=== PATIENT | female | born 1995 | race Caucasian/White ===

== ENCOUNTER 2016-07-12 12:42 | Emergency (ER) ==
[2016-07-12 12:50] VITALS: BP 121/68; TEMP 98; BMI 20.7
[2016-07-12] MEDS ORDERED: ATIVAN IM STA (15:50)
[2016-07-12] MEDS ORDERED: PHENERGAN 25 MG/ML VIAL IM STA (15:50)
--- NOTE | 2016-07-12 15:50 | ED.PDOC ---
General ED Provider: Dr. JOSH BARKER JR Chief Complaint: Psychiatric Complaint Stated Complaint: ef-WOKE UP HAVING ANXIETY ATTACK. VOMITING 98.0 77 22 121/68 7/10. Alprazolam 0.5 mg 06/04/16 17:04. Ativan IM 06/04/16 2 mg. Phenergan IM 06/04/16 50 mg. FOLLOW UP WITH YOUR COUNSELLOR-. CALL YOUR COUNSELLOR IF ANY WORSENING. MAY USE PHENRGAN FOR NAUSEA EITHER TABS OR SUPPOSITORIES(NOT BOTH). FOLLOW UP PMD THIS WEEK. OVERUSE OF BENZODIAZEPINES SUCH XANAX CAN CAUSE THESE SYMPTOMS. INCREASE CLEAR LIQUIDS TO 6-10 CUPS A DAY. Lorazepam 1 mg. Ondansetron HCl 4 mg06/21/16. IM. Lorazepam 1 mg 06/03/16 11:35 06/03/16 11:46. Ativan IM 06/03/16 11:36 1 mg. ONCE STA Administration. Lorazepam 1 mg 06/03/16 12:35 06/03/16. Ativan IM 06/03/16 12:36 1 mg. ONCE STA Administration. Promethazine HCl 25 mg 06/03/16 11:35 06/03/16 11:46. Phenergan 25 Mg/Ml Vial IM 06/03/16 11:36 25 mg. ONCE STA Administration Time Seen by Physician: 15:50 Mode of Arrival: Walk-In Information Source: Patient Exam Limitations: No limitations Primary Care Provider[facility] Nursing and Triage Documentation Reviewed and Agree: No Review of Systems - Review Of Systems Constitutional: Reports: Malaise, Weakness Eyes: Reports: No symptoms Ears, Nose, Mouth, Throat: Reports: No symptoms Respiratory: Reports: No symptoms Cardiac: Reports: No symptoms GI: Reports: Abdominal pain, Nausea, Vomiting : Reports: No symptoms Musculoskeletal: Reports: No symptoms Skin: Reports: No symptoms Neurological: Reports: Anxiety, Other Endocrine: Reports: No symptoms Hematologic/Lymphatic: Reports: No symptoms All Other Systems: Other Past Medical History - Past Medical History Previously Healthy: Yes Endocrine: Reports: None Cardiovascular: Reports: None Respiratory: Reports: None Hematological: Reports: None Gastrointestinal: Reports: Pancreatitis (at [facility] pancreatitis february 2015::[facility] 06/10/15) Genitourinary: Reports: None Neuro/Psych: Reports: Anxiety, PTSD Musculoskeletal: Reports: None Cancer: Reports: None Last Menstrual Period: UNSURE - Surgical History General Surgical History: Reports: Cholecystectomy - Family History Family History: Reports: Unknown - Social History Smoking Status: Current every day smoker, Heavy tobacco smoker Hx Substance Use: No Alcohol Screening: None - Immunizations Tetanus Shot up to Date: Yes Physical Exam - Physical Exam Appearance: Ill-appearing, Thin Pain Distress: Moderate Eyes: ALONZO, EOMI, Conjunctiva clear ENT: Ears normal, Nose normal, Oropharynx normal Neck: Supple Respiratory: Airway patent, Breath sounds clear, Breath sounds equal, Respirations nonlabored, Rhonchi Cardiovascular: RRR, Pulses normal, No rub, No murmur GI/: Soft, Nontender, No masses, Bowel sounds normal, No Organomegaly Musculoskeletal: Normal strength, ROM intact, No edema, No calf tenderness Skin: Warm, Dry, Normal color Neurological: Sensation intact, Motor intact, Reflexes intact, Cranial nerves intact, Alert, Oriented (insistent unwilling to discuss plan states will see Dr Parson next month) Critical Care Note - Critical Care Note Total Time (mins): 0 Course - Course Orders, Labs, Meds: Orders Category Date Time Status Lorazepam Inj [Ativan] MEDS 07/12/16 15:50 Discontinued 2 mg IM ONCE STA Promethazine HCl [Phenergan 25 mg/ml Vial] MEDS 07/12/16 15:50 Discontinued 25 mg IM ONCE STA Medications Discontinued Medications Generic Name Dose Route Start Last Admin Trade Name Ignacio PRN Reason Stop Dose Admin Lorazepam 2 mg 07/12/16 15:50 07/12/16 16:17 Ativan IM 07/12/16 15:51 2 mg ONCE STA Administration Promethazine HCl 25 mg 07/12/16 15:50 07/12/16 16:16 Phenergan 25 Mg/Ml Vial IM 07/12/16 15:51 25 mg ONCE STA Administration Vital Signs: Temp Pulse Resp BP Pulse Ox 07/12/16 12:46 98.0 F 77 22 121/68 98 Departure - Departure Time of Disposition: 16:38 Disposition: HOME SELF-CARE Discharge Problem: Nausea & vomiting, Anxiety Instructions: Acute Nausea and Vomiting (ED), Anxiety (ED), Hypokalemia (ED) Condition: Stable Pt referred to PMD for follow-up: Yes Additional Instructions: increase potassium for three days discuss management with DR PARSON not well managed if requiring injections consider onger acting benzodiazepine if psychiatry agrees Allergies/Adverse Reactions: Allergies No Known Drug Allergies Adverse Reaction (Verified 07/12/16 12:46) Home Medications: Ambulatory Orders Alprazolam [Xanax] 0.5 mg PO QID #120 05/20/16
== END 2016-07-12 16:47 | disposition home or self-care (01) ==
LOC: ED 12:42
DX: F41.9 Anxiety disorder, unspecified (principal); R11.2 Nausea with vomiting, unspecified; E87.6 Hypokalemia; F17.210 Nicotine dependence, cigarettes, uncomplicated
CPT/HCPCS: 96372; 99282

== ENCOUNTER 2016-08-17 16:40 | Emergency (ER) ==
[2016-08-17 16:48] VITALS: BP 135/82; TEMP 98.1; BMI 19.4
--- NOTE | 2016-08-17 17:01 | ED.PDOC ---
General ED Provider: Dr. JOSH BARKER JR Chief Complaint: Behavioral Complaint Stated Complaint: states woke this am at 10:00 "with anxiety through the roof"-- then developed n/v --now vomiting wont stop[End]98.1 80 20 98% 135/82 04/12 Time Seen by Physician: 16:59 Mode of Arrival: Walk-In Information Source: Patient Exam Limitations: No limitations Nursing and Triage Documentation Reviewed and Agree: No Review of Systems - Review Of Systems Constitutional: Reports: Malaise Eyes: Reports: No symptoms Ears, Nose, Mouth, Throat: Reports: No symptoms Respiratory: Reports: Cough Cardiac: Reports: Chest pain (pleuritic) GI: Reports: Abdominal pain, Nausea, Vomiting : Reports: No symptoms Musculoskeletal: Reports: No symptoms Skin: Reports: No symptoms Neurological: Reports: Anxiety, Emotional problems Endocrine: Reports: No symptoms Hematologic/Lymphatic: Reports: No symptoms All Other Systems: Other Past Medical History - Past Medical History Previously Healthy: Yes Endocrine: Reports: None Cardiovascular: Reports: None Respiratory: Reports: None Hematological: Reports: None Gastrointestinal: Reports: Pancreatitis (at [facility];then [facility] pancreatitis february 2015::[facility] 06/10/15) Genitourinary: Reports: None Neuro/Psych: Reports: Anxiety, PTSD Musculoskeletal: Reports: None Cancer: Reports: None Last Menstrual Period: onset yesterday - Surgical History General Surgical History: Reports: Cholecystectomy - Family History Family History: Reports: Unknown - Social History Smoking Status: Current every day smoker, Heavy tobacco smoker Hx Substance Use: No Alcohol Screening: None Physical Exam - Physical Exam Appearance: Ill-appearing, Thin Ill-appearing: Moderate Pain Distress: Moderate Eyes: ALONZO, EOMI, Conjunctiva clear ENT: Ears normal, Nose normal, Oropharynx normal Neck: Supple Respiratory: Airway patent, Breath sounds equal, Respirations nonlabored, Rhonchi Cardiovascular: RRR, Pulses normal, No rub, No murmur GI/: Soft, Bowel sounds normal, No Organomegaly, Tender (diffuse more so epigastric) Musculoskeletal: Normal strength, ROM intact, No edema, No calf tenderness Skin: Warm, Dry, Normal color Neurological: Sensation intact, Motor intact, Reflexes intact, Cranial nerves intact, Alert, Oriented Psychiatric: Anxious Re-Evaluation - Re-Evaluation Time of Re-Evaluation: 18:03 Status: Improved (states unable to keep ativan down saw dr ya a few) Critical Care Note - Critical Care Note Total Time (mins): 5 Course - Course Orders, Labs, Meds: Orders Category Date Time Status Lorazepam Inj [Ativan] MEDS 08/17/16 18:01 Discontinued 2 mg IM ONCE STA Lorazepam [Ativan] MEDS 08/17/16 17:05 Discontinued 1 mg SL ONCE STA Ondansetron HCl/Pf [Zofran 4 mg/2 ml] MEDS 08/17/16 17:04 Discontinued 8 mg IM ONCE STA Medications Discontinued Medications Generic Name Dose Route Start Last Admin Trade Name Freq PRN Reason Stop Dose Admin Lorazepam 1 mg 08/17/16 17:05 08/17/16 17:26 Ativan SL 08/17/16 17:06 1 mg ONCE STA Administration Lorazepam 2 mg 08/17/16 18:01 08/17/16 18:15 Ativan IM 08/17/16 18:02 2 mg ONCE STA Administration Ondansetron HCl 8 mg 08/17/16 17:04 08/17/16 17:18 Zofran 4 Mg/2 Ml IM 08/17/16 17:05 8 mg ONCE STA Administration Vital Signs: Temp Pulse Resp BP Pulse Ox 08/17/16 16:41 98.1 F 80 20 135/82 98 Departure - Departure Time of Disposition: 18:15 Disposition: HOME SELF-CARE Discharge Problem: Anxiety attack Instructions: Anxiety (ED), Anxiolysis in Adults (ED) Condition: Fair Pt referred to PMD for follow-up: Yes Additional Instructions: recheck PMD this week follow up psychiatry as scheduled increase potassium for three days- 100% fruit juice8 ounces three to four times a day- to compensate for losses with vomiting discuss management with DR YA not well managed if requiring injections consider longer acting benzodiazepine if psychiatry agrees given Zofran and Ativan in ER Prescriptions: Promethazine HCl [Phenergan Tab] 25 mg PO QID PRN #12 tablet PRN Reason: Nausea / Vomiting Allergies/Adverse Reactions: Allergies No Known Drug Allergies Adverse Reaction (Verified 08/17/16 16:48) Home Medications: Ambulatory Orders Alprazolam [Xanax] 0.5 mg PO QID #120 05/20/16 Trazodone HCl 100 mg PO BEDTIME #30 08/12/16 Promethazine HCl [Phenergan Tab] 25 mg PO QID PRN #12 tablet 08/17/16
[2016-08-17] MEDS ORDERED: ZOFRAN 4 MG/2 ML IM STA (17:04)
[2016-08-17] MEDS ORDERED: ATIVAN SL STA (17:05)
[2016-08-17] MEDS ORDERED: ATIVAN IM STA (18:01)
== END 2016-08-17 18:45 | disposition home or self-care (01) ==
LOC: ED 16:40
DX: F41.0 Panic disorder [episodic paroxysmal anxiety] (principal); R11.2 Nausea with vomiting, unspecified; F17.210 Nicotine dependence, cigarettes, uncomplicated; Z79.899 Other long term (current) drug therapy
CPT/HCPCS: 96372; 99282

== ENCOUNTER 2016-09-16 08:38 | Emergency (ER) ==
[2016-09-16 08:47] VITALS: BP 123/61; TEMP 98.4; BMI 23.5
--- NOTE | 2016-09-16 09:28 | ED.PDOC ---
General ED Provider: Dr. JOSH BARKER JR Chief Complaint: Abdominal Pain Stated Complaint: WOKE UP YESTERAY WITH ANXIETY ATTACK, ABD PAIN, VOMITING. ABD ABDOMINAL PAIN WORSE THAN NORMAL FEELS SHORT OF AIR FROM ANXIETY.[End]98.4 109 22 98% 123/61 7/10 ARMS AND LEGS TINGLING REALLY BAD PAIN NOT THIS BAD BEFORE(USUAL COMMENT) Time Seen by Physician: 09:29 Mode of Arrival: Walk-In Information Source: Patient Exam Limitations: No limitations Nursing and Triage Documentation Reviewed and Agree: No Review of Systems - Review Of Systems Constitutional: Reports: No symptoms Eyes: Reports: No symptoms Ears, Nose, Mouth, Throat: Reports: No symptoms Respiratory: Reports: No symptoms Cardiac: Reports: No symptoms GI: Reports: Abdominal pain (ABD PAIN, RUQ RLQ), Nausea, Vomiting : Reports: No symptoms Musculoskeletal: Reports: No symptoms Skin: Reports: No symptoms Neurological: Reports: Anxiety Endocrine: Reports: No symptoms Hematologic/Lymphatic: Reports: No symptoms All Other Systems: Other Past Medical History - Past Medical History Previously Healthy: Yes Endocrine: Reports: None Cardiovascular: Reports: None Respiratory: Reports: None Hematological: Reports: None Gastrointestinal: Reports: Pancreatitis ( [facility], [place], operated by [facility] pancreatitis february 2015:: [facility] 06/10/15) Genitourinary: Reports: None Neuro/Psych: Reports: Anxiety, PTSD Musculoskeletal: Reports: None Cancer: Reports: None Last Menstrual Period: 3 DAYS - Surgical History General Surgical History: Reports: Cholecystectomy - Family History Family History: Reports: Unknown - Social History Smoking Status: Current every day smoker, Heavy tobacco smoker Hx Substance Use: No Alcohol Screening: None Physical Exam - Physical Exam Appearance: Well-appearing Ill-appearing: Mild Pain Distress: Mild Eyes: ALONZO, EOMI, Conjunctiva clear ENT: Ears normal, Nose normal, Oropharynx normal Neck: Supple Respiratory: Airway patent, Breath sounds clear, Breath sounds equal, Respirations nonlabored Cardiovascular: RRR, Pulses normal, No rub, No murmur GI/: Soft, No masses, Bowel sounds normal, No Organomegaly, Tender Musculoskeletal: Normal strength, ROM intact, No edema, No calf tenderness Skin: Warm, Dry, Normal color Neurological: Sensation intact, Motor intact, Reflexes intact, Cranial nerves intact, Alert, Oriented Psychiatric: Anxious Re-Evaluation - Re-Evaluation Time of Re-Evaluation: 11:08 Status: Improved (discussed dose of ativan will allow repeat, states clonopin ineffective -sees dr lewis) Critical Care Note - Critical Care Note Total Time (mins): 0 Course - Course Hematology/Chemistry: 09/16/16 09:20 09/16/16 09:20 Orders, Labs, Meds: Lab Review 09/16/16 09/16/16 09:20 10:22 WBC 16.90 H RBC 5.37 Hgb 16.6 H Hct 46.6 MCV 86.8 MCH 30.9 MCHC 35.6 H RDW Coeff of Giovani 13.2 Plt Count 306 Immature Gran % (Auto) 0.5 Neut % (Auto) 78.7 Lymph % (Auto) 12.4 [place] % (Auto) 8.2 Eos % (Auto) 0.0 Baso % (Auto) 0.2 Immature Gran # (Auto) 0.1 Neut # 13.3 H Lymph # 2.1 [place] # 1.4 Eos # 0.0 Baso # 0.0 Sodium 138 Potassium 3.1 L Chloride 96 L Carbon Dioxide 24 Anion Gap 21.1 BUN 25 H Creatinine 1.18 Estimated GFR (MDRD) 58.00 BUN/Creatinine Ratio 21.18 Glucose 116 H Lactic Acid 18.4 Calcium 11.3 H Total Bilirubin 0.74 AST 20 ALT 23 Alkaline Phosphatase 86 Total Protein 9.6 H Albumin 5.4 H Globulin 4.2 Albumin/Globulin Ratio 1.29 Amylase 143 H Lipase 17 Procalcitonin < 0.05 Serum , Qual Negative Orders Category Date Time Status IV ACCESS ONCE CARE 09/16/16 09:00 Active ED VITAL SIGNS Q1HR EMERGENCY 09/16/16 09:00 Active AMYLASE Stat LAB 09/16/16 09:20 Completed BLOOD CULTURE Stat LAB 09/16/16 09:20 Received CBC W/ AUTO DIFF Stat LAB 09/16/16 09:20 Completed COMPREHENSIVE METABOLIC PANEL Stat LAB 09/16/16 09:20 Completed LACTIC ACID Stat LAB 09/16/16 09:20 Completed LIPASE Stat LAB 09/16/16 09:20 Completed SERUM TEST [SERUM ] Stat LAB 09/16/16 10:22 Completed PROCALCITONIN Stat LAB 09/16/16 09:20 Completed URINALYSIS C & S IF INDICATED Stat LAB 09/16/16 09:00 Uncollected URINE Stat LAB 09/16/16 09:01 Uncollected Lorazepam Inj [Ativan] MEDS 09/16/16 09:38 Discontinued 1 mg IM ONCE STA Lorazepam Inj [Ativan] MEDS 09/16/16 11:06 Stat 1 mg IM ONCE STA Lorazepam Inj [Ativan] MEDS 09/16/16 09:00 Discontinued 1 mg IVP ONCE STA Ondansetron HCl/Pf [Zofran 4 mg/2 ml] MEDS 09/16/16 09:38 Discontinued 4 mg IM ONCE STA Ondansetron HCl/Pf [Zofran 4 mg/2 ml] MEDS 09/16/16 09:00 Discontinued 4 mg IVP ONCE STA Medications Discontinued Medications Generic Name Dose Route Start Last Admin Trade Name Freq PRN Reason Stop Dose Admin Lorazepam 1 mg 09/16/16 09:00 09/16/16 09:58 Ativan IVP 09/16/16 09:01 Not Given ONCE STA Lorazepam 1 mg 09/16/16 09:38 09/16/16 10:00 Ativan IM 09/16/16 09:39 2 mg ONCE STA Administration Lorazepam 1 mg 09/16/16 11:06 Ativan IM 09/16/16 11:07 ONCE STA Ondansetron HCl 4 mg 09/16/16 09:00 09/16/16 09:58 Zofran 4 Mg/2 Ml IVP 09/16/16 09:01 Not Given ONCE STA Ondansetron HCl 4 mg 09/16/16 09:38 09/16/16 09:59 Zofran 4 Mg/2 Ml IM 09/16/16 09:39 4 mg ONCE STA Administration Vital Signs: Temp Pulse Resp BP Pulse Ox 09/16/16 08:41 98.4 F 109 H 22 123/61 98 Departure - Departure Time of Disposition: 11:08 Disposition: HOME SELF-CARE Discharge Problem: Abdominal pain Instructions: Abdominal Pain (ED) Condition: Fair Pt referred to PMD for follow-up: Yes Additional Instructions: recheck PMD this week amylase is slightly elevated no other evidence pancreatitis on labs potassium is slightly low recommend replacement and discuss with your physician Prescriptions: Potassium Chloride [K-Dur] 20 meq PO BID #30 tab Allergies/Adverse Reactions: Allergies No Known Drug Allergies Adverse Reaction (Verified 09/16/16 08:40) Home Medications: Ambulatory Orders Alprazolam [Xanax] 0.5 mg PO QID #120 05/20/16 Trazodone HCl 100 mg PO BEDTIME #30 08/12/16 Potassium Chloride [K-Dur] 20 meq PO BID #30 tab 09/16/16
[2016-09-16 09:29] LABS: BASOPHILS % (AUTO) 0.2 % (0.0-3.0); HEMATOCRIT 46.6 % (37.0-47.0); HEMOGLOBIN 16.6 g/dl (12.0-16.0); IMMATURE GRANULOCYTE % (AUTO) 0.5 % (0.0-5.0); LYMPHOCYTES # (AUTO) 2.1 K/uL (0.60-3.4); LYMPHOCYTES % (AUTO) 12.4 (10.0-50.0); MEAN CORPUSCULAR HEMOGLOBIN 30.9 pg (27.0-31.0); MEAN CORPUSCULAR HGB CONC 35.6 (31.8-35.4); MEAN CORPUSCULAR VOLUME 86.8 fl (81.0-99.0); MONOCYTES # (AUTO) 1.4 K/uL (0.4-2.0); MONOCYTES % (AUTO) 8.2 (0-10); NEUTROPHILS # (AUTO) 13.3 K/ul (2.0-6.9); NEUTROPHILS % (AUTO) 78.7; PLATELET COUNT 306 10^3/uL (140-440); RED BLOOD COUNT 5.37 10^6/ul (4.20-5.40)
[2016-09-16 09:49] LABS: ALBUMIN 5.4 g/dL (3.4-5.0); ALBUMIN/GLOBULIN RATIO 1.29; ANION GAP 21.1; BILIRUBIN,TOTAL 0.74 mg/dL (0.00-1.20); BUN/CREATININE RATIO 21.18; CALCIUM 11.3 mg/dL (8.2-10.2); CREATININE 1.18 mg/dL (0.60-1.30); POTASSIUM 3.1 mmol/L (3.5-5.10); TOTAL PROTEIN 9.6 g/dL (6.4-8.2)
[2016-09-16] MEDS: ATIVAN IVP STA (09:58)
[2016-09-16] MEDS: ZOFRAN 4 MG/2 ML IVP STA (09:58)
[2016-09-16] MEDS: ZOFRAN 4 MG/2 ML IM STA (09:59)
[2016-09-16] MEDS: ATIVAN IM STA ×2 (10:00→11:29)
[2016-09-16 10:30] LABS: SERUM PREGNANCY INTERNAL QC INTERNAL QC VALID
== END 2016-09-16 12:02 | disposition home or self-care (01) ==
LOC: ED 08:38
DX: R10.11 Right upper quadrant pain (principal); R10.31 Right lower quadrant pain; R11.2 Nausea with vomiting, unspecified; F17.210 Nicotine dependence, cigarettes, uncomplicated
CPT/HCPCS: 36415; 80053; 82150; 83605; 83690; 84145; 84703; 85025; 87040; 96374; 96375; 96376; 99283

== ENCOUNTER 2016-09-17 10:46 | Inpatient (IN) ==
[2016-09-17] MEDS ORDERED: SODIUM CHLORIDE 1,000 ML IV STA (11:10)
[2016-09-17] MEDS ORDERED: ATIVAN IVP STA ×4 (11:11→19:53)
[2016-09-17] MEDS ORDERED: POTASSIUM CHLORIDE PREMIX RUN 40 MEQ in PREMIX 100 ML WATER 2 BAG IV STA (11:13)
--- NOTE | 2016-09-17 11:15 | ED.PDOC ---
General ED Provider: Dr. JOSH BARKER JR Chief Complaint: Abdominal Pain Stated Complaint: SEEN YESTERDAY FOR SAME ISSUE....SEEN FREQUENTLY IN THIS ER FOR THIS PROBLEM.PATIENT SAYS IT IS HER ANXIETY.SEES DR YA.HAVING DRY HEAVES WITH SMALL AMT OF VOMITING[End]abdominal pain anxiety nausea vomiting Time Seen by Physician: 11:14 Mode of Arrival: Walk-In Information Source: Patient Exam Limitations: No limitations Nursing and Triage Documentation Reviewed and Agree: No Review of Systems - Review Of Systems Constitutional: Reports: Malaise, Weakness Eyes: Reports: No symptoms Ears, Nose, Mouth, Throat: Reports: Throat pain Respiratory: Reports: No symptoms Cardiac: Reports: No symptoms GI: Reports: Abdominal pain, Nausea, Vomiting : Reports: No symptoms, Other Musculoskeletal: Reports: No symptoms Skin: Reports: No symptoms Neurological: Reports: Anxiety, Other (PTSD) Endocrine: Reports: No symptoms Hematologic/Lymphatic: Reports: No symptoms All Other Systems: Other Past Medical History - Past Medical History Previously Healthy: Yes Endocrine: Reports: None Cardiovascular: Reports: None Respiratory: Reports: None Hematological: Reports: None Gastrointestinal: Reports: Pancreatitis ( [facility] pancreatitis february 2015:: [facility] 06/10/15) Genitourinary: Reports: None Neuro/Psych: Reports: Anxiety, PTSD Musculoskeletal: Reports: None Cancer: Reports: None Last Menstrual Period: N/A Other Pertinent Past Medical History: PANCREATITIS, PTSD CCE ANX - Surgical History General Surgical History: Reports: Cholecystectomy - Family History Family History: Reports: Unknown - Social History Smoking Status: Current every day smoker, Heavy tobacco smoker Hx Substance Use: No Alcohol Screening: None - Immunizations Tetanus Shot up to Date: No Physical Exam - Physical Exam Appearance: Ill-appearing Pain Distress: Moderate Neck: Supple Respiratory: Airway patent GI/: Soft, Tender Musculoskeletal: Normal strength, ROM intact, No edema, No calf tenderness Skin: Warm, Dry, Normal color Neurological: Sensation intact, Motor intact, Reflexes intact, Cranial nerves intact, Alert, Oriented Psychiatric: Anxious Interpretation - EKG Interpretation Time of EKG #1: 13:37 Rate: Normal Rhythm: Sinus Ectopy: None [place]: NL ST Segment: Normal Critical Care Note - Critical Care Note Total Time (mins): 5 Course - Course Hematology/Chemistry: 09/17/16 12:35 09/17/16 12:35 Orders, Labs, Meds: Lab Review 09/17/16 12:35 WBC 11.99 H RBC 4.80 Hgb 15.0 Hct 41.6 MCV 86.7 MCH 31.3 H MCHC 36.1 H RDW Coeff of Giovani 12.6 Plt Count 210 D Sodium 136 Potassium 3.4 L Chloride 98 Carbon Dioxide 24 Anion Gap 17.4 BUN 21 H Creatinine 0.90 Estimated GFR (MDRD) 80.00 BUN/Creatinine Ratio 23.33 Glucose 94 Calcium 9.6 Orders Category Date Time Status EKG-(ED ONLY) Stat CARDIO 09/17/16 13:28 Completed BASIC METABOLIC PANEL Stat LAB 09/17/16 12:35 Completed CBC HEMOGRAM ONLY Stat LAB 09/17/16 12:35 Completed UA [URINALYSIS C & S IF INDICATED] Stat LAB 09/17/16 12:30 Uncollected Benztropine Mesylate Inj [Cogentin] MEDS 09/17/16 14:01 Discontinued 1 mg IVP ONCE STA Ketorolac Tromethamine [Toradol] MEDS 09/17/16 13:27 Discontinued 30 mg IVP ONCE STA Lorazepam Inj [Ativan] MEDS 09/17/16 11:11 Discontinued 1 mg IVP ONCE STA Lorazepam Inj [Ativan] MEDS 09/17/16 11:39 Discontinued 2 mg IVP ONCE STA Lorazepam Inj [Ativan] MEDS 09/17/16 14:00 Discontinued 2 mg IVP ONCE STA Potassium Chloride in 0.9%NaCl [Sodium Chloride 0.9%- MEDS 09/17/16 11:19 Active KCl 40Meq] 1,000 ml IV 250 mls/hr Medications Generic Name Dose Route Start Last Admin Trade Name Freq PRN Reason Stop Dose Admin Potassium Chloride/Sodium Chloride 1,000 mls @ 250 mls/hr 09/17/16 11:19 11:38 Sodium Chloride 0.9%-Kcl 40meq IV 09/17/16 15:18 250 mls/hr .Q4H STA Administration Discontinued Medications Generic Name Dose Route Start Last Admin Trade Name Freq PRN Reason Stop Dose Admin Benztropine Mesylate 1 mg 09/17/16 14:01 Cogentin IVP 09/17/16 14:02 ONCE STA Ketorolac Tromethamine 30 mg 09/17/16 13:27 09/17/16 14:05 Toradol IVP 09/17/16 13:28 30 mg ONCE STA Administration Lorazepam 1 mg 09/17/16 11:11 09/17/16 11:45 Ativan IVP 09/17/16 11:12 Not Given ONCE STA Lorazepam 2 mg 09/17/16 11:39 09/17/16 11:41 Ativan IVP 09/17/16 11:40 2 mg ONCE STA Administration Lorazepam 2 mg 09/17/16 14:00 09/17/16 14:25 Ativan IVP 09/17/16 14:01 2 mg ONCE STA Administration Vital Signs: Temp Pulse Resp BP Pulse Ox 09/17/16 10:46 97.1 F L 111 H 20 125/87 98 Departure - Departure Time of Disposition: 14:28 Disposition: ADMITTED INPATIENT Discharge Problem: Intractable vomiting with nausea Qualifiers: Vomiting type: unspecified Qualifier Code: (R11.2) Nausea with vomiting, unspecified Condition: Stable Pt referred to PMD for follow-up: No (hospitalist) Allergies/Adverse Reactions: Allergies No Known Drug Allergies Adverse Reaction (Verified 09/17/16 10:56) Home Medications: Ambulatory Orders Alprazolam [Xanax] 0.5 mg PO QID #120 05/20/16 Trazodone HCl 100 mg PO BEDTIME #30 08/12/16 Potassium Chloride [K-Dur] 20 meq PO BID #30 tab 09/16/16
[2016-09-17] MEDS ORDERED: SODIUM CHLORIDE 0.9%-KCL 40MEQ 1,000 ML IV STA (11:19)
[2016-09-17 12:56] LABS: HEMATOCRIT 41.6 % (37.0-47.0); MEAN CORPUSCULAR HEMOGLOBIN 31.3 pg (27.0-31.0); MEAN CORPUSCULAR HGB CONC 36.1 (31.8-35.4); MEAN CORPUSCULAR VOLUME 86.7 fl (81.0-99.0); RED BLOOD COUNT 4.8 10^6/ul (4.20-5.40); WHITE BLOOD COUNT 11.99 K/ul (4.6-10.2)
[2016-09-17 13:02] LABS: POTASSIUM 3.4 mmol/L (3.5-5.10)
[2016-09-17 13:03] LABS: ANION GAP 17.4; BUN/CREATININE RATIO 23.33; CALCIUM 9.6 mg/dL (8.2-10.2); CREATININE 0.9 mg/dL (0.60-1.30)
[2016-09-17] MEDS ORDERED: TORADOL IVP STA (13:27)
[2016-09-17] MEDS ORDERED: COGENTIN IVP STA (14:01)
[2016-09-17] MEDS ORDERED: TYLENOL PO PRN (14:36)
[2016-09-17] MEDS ORDERED: XANAX PO PRN (14:42)
[2016-09-17] MEDS ORDERED: PHENERGAN 25 MG/ML VIAL 25 MG in SODIUM CHLORIDE 50 ML IV STA (14:55)
[2016-09-17] MEDS ORDERED: SODIUM CHLORIDE 0.9%-KCL 20 MEQ 1,000 ML IV SCH (15:00)
[2016-09-17] MEDS ORDERED: ZOFRAN 4 MG/2 ML IVP SCH (15:00)
[2016-09-17 16:18] VITALS: BMI 19.4
[2016-09-17] MEDS ORDERED: GI COCKTAIL PO STA (16:27)
[2016-09-17 16:43] LABS: AMYLASE 98 U/L (25-115); LIPASE 25 U/L (8-78)
[2016-09-17] MEDS: CARAFATE PO SCH ×2 (17:05→20:16)
[2016-09-17 18:48] LABS: ADD URINE MICROSCOPIC YES; BILIRUBIN,URINE 1+ (NEGATIVE); KETONES,URINE 3+ (NEGATIVE); LEUKOCYTE ESTERASE ,URINE Negative (NEGATIVE); NITRITE,URINE Negative (NEGATIVE); PROTEIN,URINE Trace (NEGATIVE); URINE, BLOOD 2+ (NEGATIVE)
[2016-09-17 18:49] LABS: URINE PREGNANCY INTERNAL QC INTERNAL QC VALID
[2016-09-17] MEDS: K-DUR PO SCH (20:16)
[2016-09-17] MEDS: PROTONIX IV IVP SCH (20:49)
[2016-09-17] MEDS ORDERED: K-DUR PO SCH (21:00)
[2016-09-17] MEDS ORDERED: DESYREL PO SCH (21:00)
[2016-09-17] MEDS ORDERED: NON-FORMULARY MEDICATION (Trazodone Hcl [Trazodone Hcl] 100 MG) PO SCH ×22 (21:00)
--- NOTE | 2016-09-17 23:32 | CT ---
EXAM: CT scan abdomen pelvis without contrast HISTORY: Epigastric pain COMPARISON: CT scan abdomen pelvis 06/21/2016 FINDINGS: Contiguous axial images obtained from lung bases to the symphysis pubis without contrast utilizing 3-mm collimation. Sagittal and coronal reconstructions were imaged and reviewed.. The vi sualized lung bases are clear. There has been prior cholecystectomy. The liver, pancreas, spleen a nd adrenal glands have normal unenhanced CT appearance. The abdominal aorta is normal in course and caliber. The kidneys are morphologically normal. There is no evidence of free fluid or inflammator y changes. There are mildly prominent air and fluid filled loops of small bowel which may be related to ileus and/or gastroenteritis. There is no CT evidence of appendicitis. Bone windows reveals no evidence of lytic or blastic lesions IMPRESSION: Prior cholecystectomy. Prominent small bowel which may be related to ileus and/or gastroenteritis. No CT evidence of appendicitis.
[2016-09-18] MEDS: ATIVAN IVP PRN ×2 (01:51→08:15)
[2016-09-18] MEDS ORDERED: PHENERGAN 25 MG/ML VIAL ONE (03:35)
[2016-09-18] MEDS: PHENERGAN 25 MG/ML VIAL 25 MG in SODIUM CHLORIDE 50 ML IV PRN ×2 (03:39→10:38)
[2016-09-18] MEDS: CARAFATE PO SCH ×2 (05:37→11:09)
[2016-09-18 08:03] LABS: BASOPHILS % (AUTO) 0.3 % (0.0-3.0); EOSINOPHILS % (AUTO) 0.3 % (0.0-7.0); HEMATOCRIT 36.9 % (37.0-47.0); HEMOGLOBIN 13.1 g/dl (12.0-16.0); IMMATURE GRANULOCYTE % (AUTO) 0.6 % (0.0-5.0); LYMPHOCYTES # (AUTO) 1.6 K/uL (0.60-3.4); LYMPHOCYTES % (AUTO) 15.5 (10.0-50.0); MEAN CORPUSCULAR HEMOGLOBIN 31.6 pg (27.0-31.0); MEAN CORPUSCULAR HGB CONC 35.5 (31.8-35.4); MEAN CORPUSCULAR VOLUME 88.9 fl (81.0-99.0); MONOCYTES # (AUTO) 0.9 K/uL (0.4-2.0); MONOCYTES % (AUTO) 8.6 (0-10); NEUTROPHILS # (AUTO) 7.5 K/ul (2.0-6.9); NEUTROPHILS % (AUTO) 74.7; PLATELET COUNT 178 10^3/uL (140-440); RED BLOOD COUNT 4.15 10^6/ul (4.20-5.40); WHITE BLOOD COUNT 10.09 K/ul (4.6-10.2)
[2016-09-18 08:28] LABS: ALBUMIN 3.9 g/dL (3.4-5.0); ALBUMIN/GLOBULIN RATIO 1.44; BILIRUBIN,TOTAL 0.6 mg/dL (0.00-1.20); BUN/CREATININE RATIO 19.23; CALCIUM 8.9 mg/dL (8.2-10.2); CREATININE 0.78 mg/dL (0.60-1.30); TOTAL PROTEIN 6.6 g/dL (6.4-8.2)
[2016-09-18] MEDS: K-DUR PO SCH ×2 (09:40→09:49)
[2016-09-18 09:43] VITALS: BP 110/60; TEMP 99.1
[2016-09-18] MEDS ORDERED: ATIVAN PO PRN (10:24)
[2016-09-18] MEDS ORDERED: ATIVAN IVP PRN (10:25)
[2016-09-18] MEDS: PROTONIX IV IVP SCH (13:04)
--- NOTE | 2016-09-24 11:30 | SSS ---
DATE OF SERVICE: 09/18/16 REASON FOR CONSULTATION/ADMISSION: Nausea and vomiting. HISTORY OF PRESENT ILLNESS: The patient is a 20 year old female with severe anxiety problems started having the nausea and vomiting and not able to keep anything down hence forth she was not able to take her oral Xanax. The patient was feeling panicky and vomiting bile. She came to the emergency room and was seen by Dr. Millan. Initially on the patient was sent home but the patient was not feeling good so the patient came back to the emergency room again. At that time the patient was admitted for the observation with IV fluids and antibiotics. REVIEW OF SYSTEMS: CONSTITUTIONAL: No night sweats. No fatigue, malaise, lethargy. No fever or chills. HEENT: Eyes: No visual changes. No eye pain. No eye discharge. ENT: No runny nose. No epistaxis. No sinus pain. No sore throat. No odynophagia. No ear pain. No congestion. RESPIRATORY: No cough, no congestion. No hemoptysis. CARDIOVASCULAR: No angina symptoms. No CHF symptoms. No atypical chest pain for CAD. No palpitations. No shortness of breath. GASTROINTESTINAL: No abdominal pain. No nausea or vomiting. No diarrhea or constipation. No hematemesis. No hematochezia. GENITOURINARY: No urgency. No frequency. No dysuria. No hematuria. No obstructive symptoms. No discharge. No pain. No significant abnormal bleeding. MUSCULOSKELETAL: No musculoskeletal pain. No joint swelling. NEUROLOGICAL: Awake, alert, oriented to time, place and person. No headache. No neck pain. No syncope. No seizures. No dizziness. PSYCHIATRIC: Not anxious. No depression. No suicidal thoughts. No homicidal thoughts. SKIN: No rash. No lesions. No wounds. ENDOCRINE: No unexplained weight loss. No weight gain. HEMATOLOGIC/LYMPHATIC: No anemia. No purpura. No petechiae. No prolonged or excessive bleeding. No palpable lymph nodes. PAST MEDICAL HISTORY: PTSD Depression Anxiety GERD PAST SURGICAL HISTORY: Cholecystectomy PERSONAL/FAMILY HISTORY/SOCIAL HISTORY: The patient does smoke. Does have substance problems. Family history is not significant. PHYSICAL EXAMINATION: VITAL SIGNS: Blood pressure 106/61, respiratory rate 17, heart rate 79 and temperature 98. HEENT: Head normocephalic, atraumatic. Eyes: Extraocular muscles are intact. Pupils are equal, round and reactive to light and accommodation. Ears: No lesions. Nose appeared normal. Throat: No exudate or erythema. NECK: Supple. No JVD, no carotid bruit. No lymphadenopathy or thyromegaly. LUNGS: Clear to auscultation. Percussion note normal. Chest symmetrical. HEART: S1, S2, no S3. No murmurs. No cyanosis or clubbing. No ascites. Pulses: Dorsalis pedis and posterior tibial pulses +1 to +2 both sides. ABDOMEN: Soft. Nontender. Bowel sounds active. No CVA tenderness. No mass felt. EXTREMITIES: No edema. Full range of motion of all extremities, equal. NEUROLOGIC: No focal deficit. Cranial nerves II through XII are grossly intact. No headache, no double vision or headache. SKIN: Not dry. Intact. Turgor - normal. LYMPHATIC: No palpable lymph nodes/no lymphedema. MUSCULOSKELETAL: Normal joints with no swelling. Muscle tone is normal. ALLERGIES: No known drug allergies. MEDICATIONS: Xanax Trazodone Potassium LABS/EKG'S/X-RAY/ECHO/ABG: WBC 10.09, hgb 13.4, hct 36.9, plt count 178, sodium 135, potassium 4.0, chloride 103, bicarb 23, BUN 15, creatinine 0.78. CT scan did not show any acute finding. Amylase and lipase is normal. PROGRESS NOTES: See EMR. BRIEF HOSPITAL COURSE: The patient is admitted to the hospital and started on the IV fluids. IV Ativan was given, Cogentin was given, Protonix and Carafate was given. With the given treatment the patient started feeling better. By today afternoon the patient was very good and says that wanted to go home. As patient was feeling better she was discharged home. DIAGNOSES: 1. Intractable nausea and vomiting 2. Panic attacks 3. PTSD 4. Depression 5. Anxiety 6. Substance use RECOMMENDATIONS/PLAN: 1. Discharge patient home 2. Zantac 150mg twice a day 3. Have a followup with the Dr. Parson 4. Have followup with [facility] within 5-7 days. TIME SPENT: More than 60 minutes. IRIS
--- NOTE | 2016-09-30 11:54 | HP ---
DATE OF SERVICE: 09/17/16 REASON FOR HOSPITALIZATION: Persistent nausea and vomiting. HISTORY OF PRESENT ILLNESS: The patient is a 20 year old female been nauseous and vomiting for three to four days and not able to keep anything down. Was in the emergency room yesterday and seen by Dr. Millan. She was treated initially with IV fluids and Zofran and mean time she was not able to tolerate so she came back, still vomiting and nothing she was able to keep down, epigastric pain, abdominal pain 6-7/10 sharp shooting type of pain. They patient was not able to get better so came back to the emergency today and seen by Dr. Millan. Yesterday her amylase was 144 and it was not today in the emergency room. The patient got the Cogentin , Toradol, Ativan a total of 4mg IV push and still not feeling better so the patient was admitted to the hospital. REVIEW OF SYSTEMS: CONSTITUTIONAL: No night sweats. Weakness and tiredness. No fever or chills. HEENT: Eyes: No visual changes. No eye pain. No eye discharge. ENT: No runny nose. No epistaxis. No sinus pain. No sore throat. No odynophagia. No ear pain. No congestion. RESPIRATORY: No cough, no congestion. No hemoptysis. CARDIOVASCULAR: No angina symptoms. No CHF symptoms. No atypical chest pain for CAD. Palpitations. No shortness of breath. GASTROINTESTINAL: Abdominal pain. Nausea and vomiting. No diarrhea or constipation. No hematemesis. No hematochezia. GENITOURINARY: No urgency. No frequency. No dysuria. No hematuria. No obstructive symptoms. No discharge. No pain. No significant abnormal bleeding. MUSCULOSKELETAL: No musculoskeletal pain. No joint swelling. No arthritis. NEUROLOGICAL: No headache. No neck pain. No syncope. No seizures. No dizziness. PSYCHIATRIC: Anxious. No depression. No suicidal thoughts. No homicidal thoughts. SKIN: No rash. No lesions. No wounds. ENDOCRINE: No unexplained weight loss. No weight gain. HEMATOLOGIC/LYMPHATIC: No anemia. No purpura. No petechiae. No prolonged or excessive bleeding. No palpable lymph nodes. PERSONAL/FAMILY/SOCIAL HISTORY: The patient does smoke and has a substance use history. The family history is not significant. PAST MEDICAL/SURGICAL PROBLEMS: Anxiety Depression Substance use Nicotine use Cholecystectomy MEDICATIONS: Xanax 0.5mg PO four times a day Trazodone 100mg PO bedtime K-Dur 20MEQ PO twice a day ALLERGIES: No known drug allergies. PHYSICAL EXAMINATION: VITAL SIGNS: Blood pressure 125/87, respiratory rate 20, heart rate 111 and temperature 97.1. HEENT: Head normocephalic, atraumatic. Eyes: Extraocular muscles are intact. Pupils are equal, round and reactive to light and accommodation. Ears: No lesions. Nose appeared normal. Throat: No exudate or erythema.Mucosa dry. in distress and in pain right now. She says that she can not keep anything down. NECK: Supple. No JVD, no carotid bruit. No lymphadenopathy or thyromegaly. LUNGS: Bilateral entry is decreased and clear to auscultation. Percussion note normal. Chest symmetrical. HEART: S1, S2, no S3. No murmurs. No cyanosis or clubbing. No ascites. Pulses: Dorsalis pedis and posterior tibial pulses +1 to +2 both sides. ABDOMEN: Soft. Tender in epigastric area. Bowel sounds active. No CVA tenderness. No mass felt. EXTREMITIES: No edema. Full range of motion of all extremities, equal. NEUROLOGIC: No focal deficit. Cranial nerves II through XII are grossly intact. No headache, no double vision or headache. SKIN: Not dry. Intact. Turgor - normal. LYMPHATIC: No palpable lymph nodes/no lymphedema. MUSCULOSKELETAL: Normal joints with no swelling. Muscle tone is normal. LABS: WBC 11.99, hgb 15.0, hct 41.6, plt count 210, sodium 136, potassium 4.0, chloride 98, bicarb 24, BUN 21, creatinine 0.90. ASSESSMENT: 1. Intractable nausea and vomiting 2. Anxiety 3. Depression 4. Substance use PLAN: 1. Admit patient to the observation 2. Will do the Amylase and lipase 3. CT of abdomen and pelvis 4. Protonix 5. Carafate 6. GI cocktail 7. Continue home medication 8. NPO Will follow the patient in daily rounds. TIME SPENT: More than 70 minutes. MTDD
== END 2016-09-18 14:25 | disposition home or self-care (01) | DRG 392 ==
LOC: ED 10:46 → MEDSURG A 15:09
PROVIDERS: ADMIT Emergency Medicine; ATTEND Emergency Medicine
DX: R11.2 Nausea with vomiting, unspecified (principal); F41.0 Panic disorder [episodic paroxysmal anxiety]; F43.10 Post-traumatic stress disorder, unspecified; F41.8 Other specified anxiety disorders; F17.200 Nicotine dependence, unspecified, uncomplicated; R10.9 Unspecified abdominal pain; Z79.899 Other long term (current) drug therapy
CPT/HCPCS: 36415; 80048; 80053; 81001; 81025; 82150; 83690; 84132; 85025; 85027; 93005; 93010; 96361; 96374; 96375; 99221; 99238; 99284

== ENCOUNTER 2016-10-07 22:20 | Emergency (ER) ==
[2016-10-07 22:31] VITALS: BP 160/84; TEMP 98.1; BMI 19.5
[2016-10-07] MEDS ORDERED: ATIVAN IM STA (22:35)
[2016-10-07] MEDS ORDERED: BENADRYL IM STA (22:35)
--- NOTE | 2016-10-07 22:58 | ED.PDOC ---
General ED Provider: Dr. ACACIA MCCARTHY-ER Chief Complaint: Non-specific Complaint Stated Complaint: im very anxious-- Time Seen by Physician: 22:25 Mode of Arrival: Walk-In Information Source: Patient Exam Limitations: No limitations Nursing and Triage Documentation Reviewed and Agree: Yes Psychological Complaint Exam - Psychiatric Complaint/Exam Patient Complains Of: Present: Other (anxiety) Onset/Duration: several hours Symptoms Are: Still present Timing: Constant Initial Severity: Mild Current Severity: Moderate Character: Present: Fearful, Anxious. Absent: Manic, Depressed, Angry, Frustrated Aggravating: Reports: Recent stress Associated Signs And Symptoms: Denies: Hostile, Confused, Hallucinating, Paranoid behavior, Sleep disturbance, Appetite change Related History: Denies: Suicidal thoughts, Suicidal plan, Suicidal gestures, Homicidal thoughts, Homicidal plan, Homicidal gestures, Prior attempts, Recent stressors, Drug ingestion Completed Suicide Risk Factors: None Patient Accompanied By: Family Patient In Custody Of Police: No Social Withdrawal Present: No Social Isolation Present: No Prior Suicide Attempt: No Injury From Prior Suicide Attempt: No Related Surgical History: Reports: None Patient Uncooperative For Exam: No Mood: Present: Anxious Appearance: Present: Clean Thought Process: Present: Logical Insight: Present: Good Memory: Intact Judgement: Normal Danger To Others: No Patient Medically Stable For: Psych evaluation Differential Diagnoses: Anxiety Review of Systems - Review Of Systems Constitutional: Reports: No symptoms Eyes: Reports: No symptoms Ears, Nose, Mouth, Throat: Reports: No symptoms Respiratory: Reports: No symptoms Cardiac: Reports: No symptoms GI: Reports: No symptoms : Reports: No symptoms Musculoskeletal: Reports: No symptoms Skin: Reports: No symptoms Neurological: Reports: Anxiety Endocrine: Reports: No symptoms Hematologic/Lymphatic: Reports: No symptoms All Other Systems: Reviewed and Negative Past Medical History - Past Medical History Previously Healthy: Yes Endocrine: Reports: None Cardiovascular: Reports: None Respiratory: Reports: None Hematological: Reports: None Gastrointestinal: Reports: Pancreatitis ( [facility] pancreatitis february 2015:: Sheri 06/10/15) Genitourinary: Reports: None Neuro/Psych: Reports: Anxiety, PTSD Musculoskeletal: Reports: None Cancer: Reports: None Last Menstrual Period: 09/15/16 Other Pertinent Past Medical History: PANCREATITIS, PTSD CCE ANX - Surgical History General Surgical History: Reports: Cholecystectomy - Family History Family History: Reports: Unknown - Social History Smoking Status: Current every day smoker Hx Substance Use: Yes (marijuana) Alcohol Screening: Occasionally Lives: With family - Immunizations Tetanus Shot up to Date: Yes Physical Exam - Physical Exam Appearance: Well-appearing, No pain distress, Well-nourished Eyes: ALONZO, EOMI, Conjunctiva clear ENT: Ears normal, Nose normal, Oropharynx normal Neck: Supple Respiratory: Airway patent, Breath sounds clear, Breath sounds equal, Respirations nonlabored Cardiovascular: RRR, Pulses normal, No rub, No murmur GI/: Soft, Nontender, No masses, Bowel sounds normal, No Organomegaly Musculoskeletal: Normal strength Skin: Warm, Dry, Normal color Neurological: Sensation intact, Motor intact, Reflexes intact, Cranial nerves intact, Alert, Oriented Psychiatric: Anxious Re-Evaluation - Re-Evaluation Time of Re-Evaluation: 23:00 Status: Improved Vital Signs Stable: Yes Pain Level: 0 Appearance: NAD Lungs: Clear Skin: Warm and Dry Neuro: Alert and Oriented X3 CV: RRR Critical Care Note - Critical Care Note Total Time (mins): 0 Course - Course Orders, Labs, Meds: Orders Category Date Time Status Diphenhydramine Inj [Benadryl] MEDS 10/07/16 22:35 Discontinued 50 mg IM ONCE STA Lorazepam Inj [Ativan] MEDS 10/07/16 22:35 Discontinued 2 mg IM ONCE STA Medications Discontinued Medications Generic Name Dose Route Start Last Admin Trade Name Markusq PRN Reason Stop Dose Admin Diphenhydramine HCl 50 mg 10/07/16 22:35 10/07/16 22:48 Benadryl IM 10/07/16 22:36 50 mg ONCE STA Administration Lorazepam 2 mg 10/07/16 22:35 10/07/16 22:48 Ativan IM 10/07/16 22:36 2 mg ONCE STA Administration Vital Signs: Temp Pulse Resp BP Pulse Ox 10/07/16 22:22 98.1 F 97 H 18 160/84 H 98 Departure - Departure Time of Disposition: 23:00 Disposition: HOME SELF-CARE Discharge Problem: Anxiety Instructions: Anxiety (ED) Condition: Good Pt referred to PMD for follow-up: Yes Additional Instructions: f/u with pcp Allergies/Adverse Reactions: Allergies No Known Drug Allergies Adverse Reaction (Verified 10/07/16 22:31) Home Medications: Ambulatory Orders Alprazolam [Xanax] 0.5 mg PO QID #120 05/20/16 Disposition Discussed With: Patient
== END 2016-10-07 23:05 | disposition home or self-care (01) ==
LOC: ED 22:20
DX: F41.9 Anxiety disorder, unspecified (principal); F17.210 Nicotine dependence, cigarettes, uncomplicated
CPT/HCPCS: 96372; 99282; 99283

== ENCOUNTER 2016-10-09 10:02 | Emergency (ER) ==
[2016-10-09 10:03] VITALS: BMI 19.5
[2016-10-09 10:14] VITALS: BP 123/67; TEMP 97.6
[2016-10-09] MEDS ORDERED: ATIVAN IM STA (10:21)
[2016-10-09] MEDS ORDERED: PHENERGAN 25 MG/ML VIAL IM STA (10:21)
--- NOTE | 2016-10-09 10:57 | ED.PDOC ---
General ED Provider: Dr. ACACIA MCCARTHY-ER Chief Complaint: Psychiatric Complaint Stated Complaint: im having lots of anxiety--i am having a panic attack Time Seen by Physician: 10:05 Mode of Arrival: Walk-In Information Source: Patient, Family Exam Limitations: No limitations [facility] Nursing and Triage Documentation Reviewed and Agree: Yes Psychological Complaint Exam - Psychiatric Complaint/Exam Patient Complains Of: Present: Other (anxiety and feelings of panic) Onset/Duration: several hours Symptoms Are: Still present Timing: Constant Episodes Lasting: Hours Initial Severity: Mild Current Severity: Moderate Character: Present: Fearful, Anxious, Frustrated. Absent: Manic, Depressed, Angry Aggravating: Reports: None Associated Signs And Symptoms: Reports: Appetite change. Denies: Hostile, Confused, Hallucinating, Paranoid behavior, Sleep disturbance Related History: Reports: Recent stressors. Denies: Suicidal thoughts, Suicidal plan, Suicidal gestures, Homicidal thoughts, Homicidal plan, Homicidal gestures, Prior attempts, Drug ingestion Completed Suicide Risk Factors: Patient Accompanied By: Family Patient In Custody Of Police: No Social Withdrawal Present: No Social Isolation Present: No Prior Suicide Attempt: No Injury From Prior Suicide Attempt: No Related Surgical History: Reports: None Patient Uncooperative For Exam: No Mood: Present: Anxious Appearance: Present: Clean Thought Process: Present: Logical Insight: Present: Good Memory: Intact Judgement: Normal Danger To Others: No Differential Diagnoses: Anxiety, Other (panic attack) Review of Systems - Review Of Systems Constitutional: Reports: No symptoms Eyes: Reports: No symptoms Ears, Nose, Mouth, Throat: Reports: No symptoms Respiratory: Reports: No symptoms Cardiac: Reports: No symptoms GI: Reports: No symptoms : Reports: No symptoms Musculoskeletal: Reports: No symptoms Skin: Reports: No symptoms Neurological: Reports: Anxiety Endocrine: Reports: No symptoms Hematologic/Lymphatic: Reports: No symptoms All Other Systems: Reviewed and Negative Past Medical History - Past Medical History Previously Healthy: Yes Endocrine: Reports: None Cardiovascular: Reports: None Respiratory: Reports: None Hematological: Reports: None Gastrointestinal: Reports: Pancreatitis ( [facility] pancreatitis february 2015:: Sheri 06/10/15) Genitourinary: Reports: None Neuro/Psych: Reports: Anxiety, PTSD Musculoskeletal: Reports: None Cancer: Reports: None Last Menstrual Period: 09/17 Other Pertinent Past Medical History: PANCREATITIS, PTSD CCE ANX - Surgical History General Surgical History: Reports: Cholecystectomy - Family History Family History: Reports: Unknown - Social History Smoking Status: Current every day smoker Hx Substance Use: Yes (marijuana) Alcohol Screening: Occasionally Lives: With family - Immunizations Tetanus Shot up to Date: Yes Physical Exam - Physical Exam Appearance: Well-appearing, No pain distress, Well-nourished Eyes: LAONZO, EOMI, Conjunctiva clear ENT: Ears normal, Nose normal, Oropharynx normal Neck: Supple Respiratory: Airway patent Cardiovascular: RRR, Pulses normal, No rub, No murmur GI/: Soft, Nontender, No masses, Bowel sounds normal, No Organomegaly Musculoskeletal: Normal strength, ROM intact, No edema, No calf tenderness Skin: Warm, Dry, Normal color Neurological: Sensation intact, Motor intact, Reflexes intact, Cranial nerves intact, Alert, Oriented Psychiatric: Affect appropriate, Anxious Re-Evaluation - Re-Evaluation Time of Re-Evaluation: 10:58 Status: Improved Vital Signs Stable: Yes Pain Level: 0 Appearance: NAD Lungs: Clear Skin: Warm and Dry Neuro: Alert and Oriented X3 CV: RRR Additional Comments: resting comforably now Critical Care Note - Critical Care Note Total Time (mins): 0 Course - Course Orders, Labs, Meds: Orders Category Date Time Status Lorazepam Inj [Ativan] MEDS 10/09/16 10:21 Discontinued 2 mg IM ONCE STA Promethazine HCl [Phenergan 25 mg/ml Vial] MEDS 10/09/16 10:21 Discontinued 25 mg IM ONCE STA Medications Discontinued Medications Generic Name Dose Route Start Last Admin Trade Name Freq PRN Reason Stop Dose Admin Lorazepam 2 mg 10/09/16 10:21 10/09/16 10:29 Ativan IM 10/09/16 10:22 2 mg ONCE STA Administration Promethazine HCl 25 mg 10/09/16 10:21 10/09/16 10:29 Phenergan 25 Mg/Ml Vial IM 10/09/16 10:22 25 mg ONCE STA Administration Vital Signs: Temp Pulse Resp BP Pulse Ox 10/09/16 10:17 97.6 F 110 H 20 123/67 96 10/09/16 10:03 97.6 F 110 H 20 123/67 96 Departure - Departure Time of Disposition: 10:58 Disposition: HOME SELF-CARE Discharge Problem: Panic disorder Instructions: Panic Disorder (ED) Condition: Good Pt referred to PMD for follow-up: Yes Additional Instructions: f/u with mental health Allergies/Adverse Reactions: Allergies No Known Drug Allergies Adverse Reaction (Verified 10/07/16 22:31) Home Medications: Ambulatory Orders Alprazolam [Xanax] 0.5 mg PO QID #120 05/20/16 Disposition Discussed With: Patient, Family
== END 2016-10-09 11:34 | disposition home or self-care (01) ==
LOC: ED 10:02
DX: F41.0 Panic disorder [episodic paroxysmal anxiety] (principal); F17.210 Nicotine dependence, cigarettes, uncomplicated
CPT/HCPCS: 96372; 99283

== ENCOUNTER 2016-10-22 15:26 | Emergency (ER) ==
[2016-10-22 15:27] VITALS: BMI 19.5
[2016-10-22] MEDS ORDERED: ZOFRAN 4 MG/2 ML IVP STA (15:33)
[2016-10-22] MEDS ORDERED: ZOFRAN 4 MG/2 ML IM STA (15:33)
[2016-10-22 15:34] VITALS: BP 123/70; TEMP 98
[2016-10-22 16:06] LABS: BASOPHILS # (AUTO) 0.1 K/uL (0-0.2); BASOPHILS % (AUTO) 0.4 % (0.0-3.0); EOSINOPHILS # (AUTO) 0.1 K/ul (0.0-0.7); EOSINOPHILS % (AUTO) 0.3 % (0.0-7.0); HEMATOCRIT 43.5 % (37.0-47.0); HEMOGLOBIN 15.3 g/dl (12.0-16.0); IMMATURE GRANULOCYTE % (AUTO) 0.5 % (0.0-5.0); LYMPHOCYTES # (AUTO) 3.1 K/uL (0.60-3.4); MEAN CORPUSCULAR HEMOGLOBIN 31.5 pg (27.0-31.0); MEAN CORPUSCULAR HGB CONC 35.2 (31.8-35.4); MEAN CORPUSCULAR VOLUME 89.5 fl (81.0-99.0); MONOCYTES # (AUTO) 0.9 K/uL (0.4-2.0); MONOCYTES % (AUTO) 5.6 (0-10); NEUTROPHILS # (AUTO) 11.2 K/ul (2.0-6.9); NEUTROPHILS % (AUTO) 73.2; PLATELET COUNT 351 10^3/uL (140-440); RED BLOOD COUNT 4.86 10^6/ul (4.20-5.40); WHITE BLOOD COUNT 15.24 K/ul (4.6-10.2)
[2016-10-22 16:18] LABS: SERUM PREGNANCY INTERNAL QC INTERNAL QC VALID
[2016-10-22 16:26] LABS: ALBUMIN 4.5 g/dL (3.4-5.0); ALBUMIN/GLOBULIN RATIO 1.32; ANION GAP 17.9; BILIRUBIN,TOTAL 0.45 mg/dL (0.00-1.20); BUN/CREATININE RATIO 9.63; CALCIUM 10.3 mg/dL (8.2-10.2); CREATININE 0.83 mg/dL (0.60-1.30); POTASSIUM 3.9 mmol/L (3.5-5.10); TOTAL PROTEIN 7.9 g/dL (6.4-8.2)
--- NOTE | 2016-10-22 16:34 | ED.PDOC ---
General ED Provider: Dr. NEGIN TROY Chief Complaint: Nausea/Vomiting Stated Complaint: n/v/ chest pain Time Seen by Physician: 15:30 Mode of Arrival: Walk-In Information Source: Patient Exam Limitations: No limitations Primary Care Provider: SYDNI YA Nursing and Triage Documentation Reviewed and Agree: Yes Psychological Complaint Exam - Psychiatric Complaint/Exam Patient Complains Of: Present: Other (anxiety chest pain chronic issue) Onset/Duration: 4 hours Symptoms Are: Still present Timing: Intermittent Episodes Lasting: Weeks Initial Severity: Mild Current Severity: None Aggravating: Reports: None Associated Signs And Symptoms: Denies: Hostile, Confused, Hallucinating, Paranoid behavior, Sleep disturbance, Appetite change Related History: Denies: Suicidal thoughts, Suicidal plan, Suicidal gestures, Homicidal thoughts, Homicidal plan, Homicidal gestures, Prior attempts, Recent stressors, Drug ingestion Completed Suicide Risk Factors: None Patient In Custody Of Police: No Social Withdrawal Present: Yes Social Isolation Present: Yes Prior Suicide Attempt: Yes Injury From Prior Suicide Attempt: No Related Surgical History: Reports: None Patient Uncooperative For Exam: No Mood: Present: Depressed, Anxious Appearance: Present: Clean Thought Process: Present: Logical Insight: Present: Good Memory: Intact Judgement: Normal Danger To Others: No Differential Diagnoses: Anxiety Review of Systems - Review Of Systems Constitutional: Reports: No symptoms Eyes: Reports: No symptoms Ears, Nose, Mouth, Throat: Reports: No symptoms Respiratory: Reports: No symptoms Cardiac: Reports: Chest pain GI: Reports: Nausea, Vomiting : Reports: No symptoms Musculoskeletal: Reports: No symptoms Skin: Reports: No symptoms Neurological: Reports: No symptoms Endocrine: Reports: No symptoms Hematologic/Lymphatic: Reports: No symptoms All Other Systems: Reviewed and Negative Past Medical History - Past Medical History Previously Healthy: Yes Endocrine: Reports: None Cardiovascular: Reports: None Respiratory: Reports: None Hematological: Reports: None Gastrointestinal: Reports: Pancreatitis ( [facility] pancreatitis february 2015:: Sheri 06/10/15) Genitourinary: Reports: None Neuro/Psych: Reports: Anxiety, PTSD Musculoskeletal: Reports: None Cancer: Reports: None Last Menstrual Period: the 15th of this month Other Pertinent Past Medical History: PANCREATITIS, PTSD CCE ANX - Surgical History General Surgical History: Reports: Cholecystectomy - Family History Family History: Reports: Unknown - Social History Smoking Status: Current every day smoker Hx Substance Use: Yes (marijuana) Alcohol Screening: Occasionally - Immunizations Tetanus Shot up to Date: Yes Physical Exam - Physical Exam Appearance: Well-appearing, No pain distress, Well-nourished Eyes: ALONZO, EOMI, Conjunctiva clear ENT: Ears normal, Nose normal, Oropharynx normal Respiratory: Airway patent, Breath sounds clear, Breath sounds equal, Respirations nonlabored Cardiovascular: RRR, Pulses normal, No rub, No murmur GI/: Soft, Nontender, No masses, Bowel sounds normal, No Organomegaly Musculoskeletal: Normal strength, ROM intact, No edema, No calf tenderness Skin: Warm, Dry, Normal color Neurological: Sensation intact, Motor intact, Reflexes intact, Cranial nerves intact, Alert, Oriented Psychiatric: Affect appropriate, Mood appropriate Critical Care Note - Critical Care Note Total Time (mins): 0 Course - Course Hematology/Chemistry: 10/22/16 16:00 10/22/16 16:00 Orders, Labs, Meds: Lab Review 10/22/16 16:00 WBC 15.24 H RBC 4.86 Hgb 15.3 Hct 43.5 MCV 89.5 MCH 31.5 H MCHC 35.2 RDW Coeff of Giovani 13.1 Plt Count 351 Immature Gran % (Auto) 0.5 Neut % (Auto) 73.2 Lymph % (Auto) 20.0 [place] % (Auto) 5.6 Eos % (Auto) 0.3 Baso % (Auto) 0.4 Immature Gran # (Auto) 0.1 Neut # 11.2 H Lymph # 3.1 [place] # 0.9 Eos # 0.1 Baso # 0.1 Sodium 141 Potassium 3.9 Chloride 108 H Carbon Dioxide 19 L Anion Gap 17.9 BUN 8 Creatinine 0.83 Estimated GFR (MDRD) 87.00 BUN/Creatinine Ratio 9.63 Glucose 104 Calcium 10.3 H Total Bilirubin 0.45 AST 14 L ALT 13 Alkaline Phosphatase 73 Total Protein 7.9 Albumin 4.5 Globulin 3.4 Albumin/Globulin Ratio 1.32 Serum , Qual Negative Orders Category Date Time Status CBC W/ AUTO DIFF Stat LAB 10/22/16 16:00 Completed COMPREHENSIVE METABOLIC PANEL Stat LAB 10/22/16 16:00 Completed HIV RAPID TEST [RAPID HIV SCREEN] Stat LAB 10/22/16 16:00 Received SERUM Stat LAB 10/22/16 16:00 Completed Ondansetron HCl/Pf [Zofran 4 mg/2 ml] MEDS 10/22/16 15:33 Discontinued 4 mg IM ONCE STA Ondansetron HCl/Pf [Zofran 4 mg/2 ml] MEDS 10/22/16 15:33 Discontinued 4 mg IVP ONCE STA Medications Discontinued Medications Generic Name Dose Route Start Last Admin Trade Name Ignacio PRN Reason Stop Dose Admin Ondansetron HCl 4 mg 10/22/16 15:33 10/22/16 16:20 Zofran 4 Mg/2 Ml IVP 10/22/16 15:34 Not Given ONCE STA Ondansetron HCl 4 mg 10/22/16 15:33 10/22/16 16:18 Zofran 4 Mg/2 Ml IM 10/22/16 15:34 4 mg ONCE STA Administration Vital Signs: Temp Pulse Resp BP Pulse Ox 10/22/16 15:27 98 F 77 18 123/70 100 Departure - Departure Time of Disposition: 16:34 Disposition: HOME SELF-CARE Discharge Problem: Nausea, Vomiting, Chest pain, Anxiety Instructions: Noncardiac Chest Pain (ED), Anxiety (ED) Condition: Good Pt referred to PMD for follow-up: No Additional Instructions: Please call your Family Physician as soon as possible to schedule a follow-up appointment. Allergies/Adverse Reactions: Allergies No Known Drug Allergies Adverse Reaction (Verified 10/22/16 15:32) Home Medications: Ambulatory Orders Alprazolam [Xanax] 0.5 mg PO QID #120 05/20/16
[2016-10-22 16:50] LABS: HIV INTERNAL QC INTERNAL QC VALID; HIV-1 p24 ANTIGEN SCREEN NEGATIVE (NEGATIVE); HIV-1/2 ANTIBODY SCREEN NEGATIVE (NEGATIVE)
== END 2016-10-22 16:40 | disposition home or self-care (01) ==
LOC: ED 15:26
DX: R11.2 Nausea with vomiting, unspecified (principal); R07.9 Chest pain, unspecified; F41.9 Anxiety disorder, unspecified; F17.210 Nicotine dependence, cigarettes, uncomplicated
CPT/HCPCS: 36415; 80053; 84703; 85025; 96372; 99283

== ENCOUNTER 2016-10-23 08:14 | Emergency (ER) ==
[2016-10-23 08:14] VITALS: BMI 19.5
[2016-10-23 08:27] VITALS: BP 128/97; TEMP 97.1
[2016-10-23] MEDS ORDERED: SODIUM CHLORIDE 1,000 ML IV STA (08:58)
[2016-10-23] MEDS ORDERED: ZOFRAN 4 MG/2 ML IVP STA (08:58)
[2016-10-23 09:16] LABS: BASOPHILS % (AUTO) 0.2 % (0.0-3.0); HEMATOCRIT 44.4 % (37.0-47.0); HEMOGLOBIN 16.1 g/dl (12.0-16.0); IMMATURE GRANULOCYTE % (AUTO) 0.7 % (0.0-5.0); LYMPHOCYTES # (AUTO) 1.7 K/uL (0.60-3.4); LYMPHOCYTES % (AUTO) 8.2 (10.0-50.0); MEAN CORPUSCULAR HEMOGLOBIN 31.3 pg (27.0-31.0); MEAN CORPUSCULAR HGB CONC 36.3 (31.8-35.4); MEAN CORPUSCULAR VOLUME 86.4 fl (81.0-99.0); MONOCYTES # (AUTO) 1.3 K/uL (0.4-2.0); NEUTROPHILS # (AUTO) 17.8 K/ul (2.0-6.9); NEUTROPHILS % (AUTO) 84.9; PLATELET COUNT 381 10^3/uL (140-440); RED BLOOD COUNT 5.14 10^6/ul (4.20-5.40)
[2016-10-23 09:19] LABS: WHITE BLOOD COUNT 20.98 K/ul (4.6-10.2)
[2016-10-23 09:36] LABS: ALBUMIN/GLOBULIN RATIO 1.25; ANION GAP 22.5; BILIRUBIN,TOTAL 0.72 mg/dL (0.00-1.20); BUN/CREATININE RATIO 16.91; CALCIUM 11.6 mg/dL (8.2-10.2); CREATININE 1.36 mg/dL (0.60-1.30); POTASSIUM 3.5 mmol/L (3.5-5.10)
--- NOTE | 2016-10-23 09:37 | ED.PDOC ---
General ED Provider: Dr. CHRISS QURESHI Chief Complaint: Abdominal Pain Stated Complaint: Patient is a 21 year old female who has a history of Anxiety and Panic attacks who was seen yesterday for symtoms of nausea, chest pain. She states that she has been out of her xanax due to vomiting them trying to take them for anxiety. She follow up with Dr Parson in 5 days Time Seen by Physician: 09:37 Mode of Arrival: Walk-In Information Source: Patient Exam Limitations: No limitations Primary Care Provider: SYDNI PARSON Seen Within Last 72 Hours for Same Complaint By: ED Nursing and Triage Documentation Reviewed and Agree: Yes Review of Systems - Review Of Systems Constitutional: Reports: No symptoms Eyes: Reports: No symptoms Ears, Nose, Mouth, Throat: Reports: No symptoms Respiratory: Reports: No symptoms, Short of air Cardiac: Reports: Chest pain GI: Reports: Nausea, Poor appetite, Vomiting : Reports: No symptoms Musculoskeletal: Reports: No symptoms Skin: Reports: No symptoms Neurological: Reports: Anxiety, Depressed, Emotional problems Endocrine: Reports: No symptoms Hematologic/Lymphatic: Reports: No symptoms All Other Systems: Reviewed and Negative Past Medical History - Past Medical History Previously Healthy: Yes Endocrine: Reports: None Cardiovascular: Reports: None Respiratory: Reports: None Hematological: Reports: None Gastrointestinal: Reports: Pancreatitis ( [facility] pancreatitis february 2015:: Sheri 06/10/15) Genitourinary: Reports: None Neuro/Psych: Reports: Anxiety, PTSD Musculoskeletal: Reports: None Cancer: Reports: None Last Menstrual Period: 10/17/16 Other Pertinent Past Medical History: PANCREATITIS, PTSD CCE ANX - Surgical History General Surgical History: Reports: Cholecystectomy - Family History Family History: Reports: Unknown - Social History Smoking Status: Current every day smoker Hx Substance Use: Yes (marijuana) Alcohol Screening: Occasionally - Immunizations Tetanus Shot up to Date: Yes Physical Exam - Physical Exam Appearance: Ill-appearing, Thin Ill-appearing: Mild Eyes: ALONZO Neck: Supple Respiratory: Airway patent, Breath sounds clear, Breath sounds equal, Respirations nonlabored Cardiovascular: Pulses normal, No rub, Tachycardia GI/: Soft, Nontender, No masses, Bowel sounds normal Musculoskeletal: Normal strength, ROM intact, No edema Skin: Warm, Dry Neurological: Sensation intact, Motor intact Psychiatric: Anxious Critical Care Note - Critical Care Note Total Time (mins): 0 Course - Course Hematology/Chemistry: 10/23/16 09:05 10/23/16 09:05 Orders, Labs, Meds: Lab Review 10/23/16 10/23/16 09:05 09:30 WBC 20.98 H D RBC 5.14 Hgb 16.1 H Hct 44.4 MCV 86.4 MCH 31.3 H MCHC 36.3 H RDW Coeff of Giovani 13.2 Plt Count 381 Immature Gran % (Auto) 0.7 Neut % (Auto) 84.9 Lymph % (Auto) 8.2 L Davie % (Auto) 6.0 Eos % (Auto) 0.0 Baso % (Auto) 0.2 Immature Gran # (Auto) 0.1 Neut # 17.8 H Lymph # 1.7 Davie # 1.3 Eos # 0.0 Baso # 0.0 Sodium 136 Potassium 3.5 Chloride 98 Carbon Dioxide 19 L Anion Gap 22.5 BUN 23 H Creatinine 1.36 H D Estimated GFR (MDRD) 49.00 BUN/Creatinine Ratio 16.91 Glucose 142 H Calcium 11.6 H Total Bilirubin 0.72 AST 17 ALT 17 Alkaline Phosphatase 79 Total Protein 9.0 H Albumin 5.0 Globulin 4.0 Albumin/Globulin Ratio 1.25 Amylase 115 Lipase 11 Urine Opiates Screen Negative Ur Oxycodone Screen Negative Urine Methadone Screen Negative Ur Propoxyphene Screen Negative Ur Barbiturates Screen Negative U Tricyclic Antidepress Negative Ur Phencyclidine Scrn Negative Ur Amphetamine Screen Negative U Methamphetamines Scrn Negative U Benzodiazepines Scrn Positive Urine Cocaine Screen Negative U Cannabinoids Screen Positive Orders Category Date Time Status ED IV/MEDIPORT/POWERPORT .ONCE EMERGENCY 10/23/16 08:56 Active AMYLASE Stat LAB 10/23/16 09:05 Completed CBC W/ AUTO DIFF Stat LAB 10/23/16 09:05 Completed COMPREHENSIVE METABOLIC PANEL Stat LAB 10/23/16 09:05 Completed DRUG SCREEN, URINE, RAPID Stat LAB 10/23/16 09:30 Completed LIPASE Stat LAB 10/23/16 09:05 Completed 0.9 % Sodium Chloride [Saline Flush] MEDS 10/23/16 08:58 Discontinued 1 syr IVF PRN PRN Hydroxyzine HCl [Atarax] MEDS 10/23/16 09:43 Discontinued 50 mg PO ONCE STA Lorazepam Inj [Ativan] MEDS 10/23/16 10:26 Discontinued 1 mg IVP ONCE STA Ondansetron HCl/Pf [Zofran 4 mg/2 ml] MEDS 10/23/16 08:58 Discontinued 4 mg IVP ONCE STA Sodium Chloride 0.9% [Sodium Chloride] 1,000 ml MEDS 10/23/16 08:[address] ABD/PEL WO RENAL STONE PROT Stat RADS 10/23/16 09:55 Completed Medications Discontinued Medications Generic Name Dose Route Start Last Admin Trade Name Freq PRN Reason Stop Dose Admin Hydroxyzine HCl 50 mg 10/23/16 09:43 10/23/16 09:51 Atarax PO 10/23/16 09:44 50 mg ONCE STA Administration Sodium Chloride 1,000 mls @ 1,000 mls/hr 10/23/16 08:58 10/23/16 09:18 Sodium Chloride IV 10/23/16 09:57 1,000 mls/hr BOLUS STA Administration Lorazepam 1 mg 10/23/16 10:26 10/23/16 10:35 Ativan IVP 10/23/16 10:27 1 mg ONCE STA Administration Ondansetron HCl 4 mg 10/23/16 08:58 10/23/16 09:19 Zofran 4 Mg/2 Ml IVP 10/23/16 08:59 4 mg ONCE STA Administration Sodium Chloride 1 syr 10/23/16 08:58 10/23/16 09:18 Saline Flush IVF 1 syr PRN PRN Administration To flush IV Vital Signs: Temp Pulse Resp BP Pulse Ox 10/23/16 08:15 97.1 F L 114 H 18 128/97 H 98 Departure - Departure Time of Disposition: 10:13 Disposition: HOME SELF-CARE Discharge Problem: Abdominal pain, Anxiety Instructions: Generalized Anxiety Disorder (ED) Condition: Stable Pt referred to PMD for follow-up: Yes Additional Instructions: Take medications as prescribed Stop using Marijuana Follow up with Dr Parson in 3 days Prescriptions: Hydroxyzine HCl [Atarax] 25 mg PO TID PRN #25 tablet PRN Reason: Anxiety Lorazepam [Ativan] 0.5 mg PO TID #6 tablet Allergies/Adverse Reactions: Allergies No Known Drug Allergies Adverse Reaction (Verified 10/23/16 08:22) Home Medications: Ambulatory Orders Alprazolam [Xanax] 0.5 mg PO QID #120 11/17/16 Hydroxyzine HCl [Atarax] 25 mg PO TID PRN #25 tablet 10/23/16 Lorazepam [Ativan] 0.5 mg PO TID #6 tablet 10/23/16 Disposition Discussed With: Patient
[2016-10-23] MEDS ORDERED: ATARAX PO STA (09:43)
[2016-10-23 09:50] LABS: COCAIN SCREEN,URINE NEGATIVE (NEGATIVE)
--- NOTE | 2016-10-23 10:24 | CT ---
EXAM: CT scan of the abdomen and pelvis without contrast HISTORY: Abdominal pain, nausea vomiting TECHNIQUE: Imaging of the abdomen and pelvis was performed without contrast. 3 mm thin axial image s and coronal and sagittal reconstructions were provided for interpretation. Comparison 09/17/2016 CT scan of the abdomen and pelvis without contrast. FINDINGS: The liver, spleen, pancreas, adrenal glands and kidneys appear normal. The proximal uret ers are normal size. The patient has had previous cholecystectomy. The small and large bowel loops are normal caliber. There is no free air. No acute abnormalities are seen within the anterior abd ominal wall. No retroperitoneal abnormalities are seen. The appendix appears normal. The helical images obtained through the pelvis demonstrate a normal appearance of the rectum, urinar y bladder. There is no free fluid seen within the pelvis. Lung bases are clear. No lytic or blast ic lesions are seen within the osseous structures. IMPRESSION: There is no bowel obstruction or acute inflammatory change seen within the abdomen and pelvis. There has been previous cholecystectomy.
[2016-10-23] MEDS ORDERED: ATIVAN IVP STA (10:26)
== END 2016-10-23 10:57 | disposition home or self-care (01) ==
LOC: ED 08:14
DX: R10.9 Unspecified abdominal pain (principal); F41.1 Generalized anxiety disorder; F17.210 Nicotine dependence, cigarettes, uncomplicated; F12.10 Cannabis abuse, uncomplicated; Z79.899 Other long term (current) drug therapy
CPT/HCPCS: 36415; 74176; 80053; 80306; 82150; 83690; 85025; 96361; 96374; 96375; 99283

== ENCOUNTER 2016-10-31 00:03 | Emergency (ER) ==
[2016-10-31 00:03] VITALS: BMI 19.5
[2016-10-31 00:12] VITALS: BP 107/70; TEMP 97.6
[2016-10-31] MEDS ORDERED: TORADOL IM STA (00:25)
[2016-10-31] MEDS ORDERED: BENADRYL IM STA (00:25)
--- NOTE | 2016-10-31 00:28 | ED.PDOC ---
General ED Provider: Dr. CHRISS QURESHI Chief Complaint: Sore Throat Stated Complaint: Patient admits to using meth this morning now has a funny test and pain underneath the tongue. Denies any shortness of breath. Has alos been hallucinating seeing people that are not there and is very anxious. Time Seen by Physician: 00:28 Mode of Arrival: Walk-In Information Source: Patient, Family Exam Limitations: No limitations [facility] Nursing and Triage Documentation Reviewed and Agree: Yes EENT Complaint Exam - Dental/Oral Complaint/Exam Mechanism of Injury: No known trauma Onset/Duration: 1 day Symptoms Are: Still present Timing: Constant Initial Severity: Moderate Current Severity: Severe Location: Under the tongue to the Jaw Character: Reports: Aching, Throbbing Aggravating: Reports: Chewing Associated Signs and Symptoms: Denies: Swelling, Discharge, Fever, Foul odor, Foul taste in mouth Related History: Denies: Similar episode, Valvular heart disease Cardiac Risk Factors: Reports: None Dental/Oral Surgical History: Reports: None Tooth Findings: Present: Normal findings Facial Swelling Present: No Bleeding Present: No Oropharynx Findings: Absent: Clots, Active bleeding Septal Hematoma: No Foreign Body Present: No Dysphagia Present: No Drooling Present: No Asymmetrical Tonsillar Swelling Present: No Uvula Midline: No Betty-tonsillar Fluctuence: No Trismus Present: No Palatal Petechiae Present: No Scarlatinaform Rash Present: No Lesions: Absent: Lip, Gums, Tongue, Buccal Mucosa, Pharynx Exanthem: Absent: Lip, Gums, Tongue, Buccal Mucosa, Pharynx Vesicles: Absent: Lip, Gums, Tongue, Buccal Mucosa, Pharynx Teeth Picture: 1 - below tongue inflamation Differential Diagnoses: Peritonsillar Abcess, Pharyngitis, Tonsillitis Review of Systems - Review Of Systems Constitutional: Reports: No symptoms, Loss of appetite Eyes: Reports: No symptoms Ears, Nose, Mouth, Throat: Reports: No symptoms Respiratory: Reports: No symptoms Cardiac: Reports: No symptoms GI: Reports: No symptoms : Reports: No symptoms Musculoskeletal: Reports: No symptoms Skin: Reports: No symptoms Neurological: Reports: Anxiety, Depressed, Emotional problems, Other ( hallucination ) Endocrine: Reports: No symptoms Hematologic/Lymphatic: Reports: No symptoms All Other Systems: Reviewed and Negative Past Medical History - Past Medical History Previously Healthy: Yes Endocrine: Reports: None Cardiovascular: Reports: None Respiratory: Reports: None Hematological: Reports: None Gastrointestinal: Reports: Pancreatitis ( [facility] february 2015:: Sheri 06/10/15) Genitourinary: Reports: None Neuro/Psych: Reports: Anxiety, PTSD Musculoskeletal: Reports: None Cancer: Reports: None Last Menstrual Period: 27 days ago Other Pertinent Past Medical History: PANCREATITIS, PTSD CCE ANX, Drug abuser - Surgical History General Surgical History: Reports: Cholecystectomy - Family History Family History: Reports: Unknown - Social History Smoking Status: Current every day smoker Hx Substance Use: Yes (marijuana) Alcohol Screening: Occasionally - Immunizations Tetanus Shot up to Date: Yes Physical Exam - Physical Exam Appearance: Ill-appearing, Thin Ill-appearing: Moderate Pain Distress: Severe Eyes: ALONZO, EOMI, Conjunctiva clear ENT: Ears normal, Nose normal, Oropharynx normal Neck: Supple Cardiovascular: Tachycardia GI/: Soft, Nontender, No masses, Bowel sounds normal, No Organomegaly Musculoskeletal: Normal strength, ROM intact, No edema, No calf tenderness Skin: Warm, Dry, Normal color Neurological: Alert, Oriented Psychiatric: Anxious (very aggitated and restless.) Re-Evaluation - Re-Evaluation Time of Re-Evaluation: 02:00 Status: Improved (resting comfortably ) Vital Signs Stable: Yes Critical Care Note - Critical Care Note Total Time (mins): 0 Course - Course Orders, Labs, Meds: Orders Category Date Time Status Diphenhydramine Inj [Benadryl] MEDS 10/31/16 00:25 Stat 50 mg IM ONCE STA Ketorolac Tromethamine [Toradol] MEDS 10/31/16 00:25 Stat 60 mg IM ONCE STA Vital Signs: Temp Pulse Resp BP Pulse Ox 10/31/16 00:04 97.6 F 146 H 20 107/70 98 Departure - Departure Time of Disposition: 00:36 Disposition: HOME SELF-CARE Discharge Problem: Mouth problem, Polysubstance abuse, Hallucination, drug-induced Instructions: Methamphetamine Abuse (ED) Condition: Fair Pt referred to PMD for follow-up: Yes Additional Instructions: Stop using Meth Follow up with PCP in 3 day with your counsellor Allergies/Adverse Reactions: Allergies No Known Drug Allergies Adverse Reaction (Verified 10/31/16 00:10) Home Medications: Ambulatory Orders Alprazolam [Xanax] 0.5 mg PO QID #120 05/20/16 Lorazepam [Ativan] 0.5 mg PO TID #6 tablet 10/23/16 Disposition Discussed With: Patient, Family
[2016-10-31] MEDS ORDERED: LIDOCAINE JELLY 2% MUCOUSMEMB STA (00:39)
[2016-10-31] MEDS ORDERED: GEODON IM STA (01:26)
== END 2016-10-31 02:10 | disposition home or self-care (01) ==
LOC: ED 00:03
DX: F15.151 Other stimulant abuse with stimulant-induced psychotic disorder with hallucinations (principal); K14.8 Other diseases of tongue; F17.210 Nicotine dependence, cigarettes, uncomplicated
CPT/HCPCS: 96372; 99284

== ENCOUNTER 2016-11-05 23:00 | Emergency (ER) ==
[2016-11-05 23:00] VITALS: BMI 19.5
[2016-11-05 23:05] VITALS: BP 144/80; TEMP 98.5
--- NOTE | 2016-11-05 23:10 | ED.PDOC ---
General ED Provider: Dr. ACACIA MCCARTHY-ER Chief Complaint: Nausea/Vomiting Stated Complaint: i having a panic attack--feeling very anxious and jittery and causing nausea Time Seen by Physician: 23:05 Mode of Arrival: Walk-In Information Source: Patient Exam Limitations: No limitations Nursing and Triage Documentation Reviewed and Agree: Yes Psychological Complaint Exam - Psychiatric Complaint/Exam Patient Complains Of: Present: Other (anxiety--panic) Symptoms Are: Still present Initial Severity: Mild Current Severity: Moderate Character: Present: Fearful, Anxious, Frustrated. Absent: Manic, Depressed, Angry Aggravating: Reports: Recent stress Associated Signs And Symptoms: Denies: Hostile, Confused, Hallucinating, Paranoid behavior, Sleep disturbance, Appetite change Related History: Reports: Recent stressors. Denies: Suicidal thoughts, Suicidal plan, Suicidal gestures, Homicidal thoughts, Homicidal plan, Homicidal gestures, Prior attempts, Drug ingestion Completed Suicide Risk Factors: Patient In Custody Of Police: No Social Withdrawal Present: No Social Isolation Present: No Prior Suicide Attempt: No Injury From Prior Suicide Attempt: No Related Surgical History: Reports: None Patient Uncooperative For Exam: No Mood: Present: Anxious. Absent: Depressed, Angry, Guarded, Paranoid, Hallucinating, Manic, Agitated Appearance: Present: Clean Thought Process: Present: Logical Insight: Present: Good Memory: Intact Judgement: Normal Danger To Others: No Differential Diagnoses: Anxiety Review of Systems - Review Of Systems Constitutional: Reports: No symptoms Eyes: Reports: No symptoms Ears, Nose, Mouth, Throat: Reports: No symptoms Respiratory: Reports: No symptoms Cardiac: Reports: No symptoms GI: Reports: Nausea, Vomiting : Reports: No symptoms Musculoskeletal: Reports: No symptoms Skin: Reports: No symptoms Neurological: Reports: Anxiety Endocrine: Reports: No symptoms Hematologic/Lymphatic: Reports: No symptoms All Other Systems: Reviewed and Negative Past Medical History - Past Medical History Previously Healthy: Yes Endocrine: Reports: None Cardiovascular: Reports: None Respiratory: Reports: None Hematological: Reports: None Gastrointestinal: Reports: Pancreatitis ( [facility] fe[facility]:: Sheri 06/10/15) Genitourinary: Reports: None Neuro/Psych: Reports: Anxiety, PTSD Musculoskeletal: Reports: None Cancer: Reports: None Last Menstrual Period: yesterday Other Pertinent Past Medical History: PANCREATITIS, PTSD CCE ANX, Drug abuser - Surgical History General Surgical History: Reports: Cholecystectomy - Family History Family History: Reports: Unknown - Social History Smoking Status: Current every day smoker Hx Substance Use: Yes (marijuana) Alcohol Screening: Occasionally Lives: With family - Immunizations Tetanus Shot up to Date: Yes Physical Exam - Physical Exam Appearance: Well-appearing, No pain distress, Well-nourished Eyes: ALONZO ENT: Ears normal Neck: Supple Respiratory: Airway patent, Breath sounds clear, Breath sounds equal, Respirations nonlabored Cardiovascular: RRR, Pulses normal, No rub, No murmur GI/: Soft, Nontender, No masses, Bowel sounds normal, No Organomegaly Musculoskeletal: Normal strength Skin: Warm, Dry, Normal color Neurological: Sensation intact, Motor intact, Reflexes intact, Cranial nerves intact, Alert, Oriented Psychiatric: Affect appropriate Re-Evaluation - Re-Evaluation Time of Re-Evaluation: 00:20 Status: Improved Vital Signs Stable: Yes Pain Level: 0 Appearance: NAD Lungs: Clear Skin: Warm and Dry Neuro: Alert and Oriented X3 CV: RRR Critical Care Note - Critical Care Note Total Time (mins): 0 Course - Course Orders, Labs, Meds: Orders Category Date Time Status Diphenhydramine Inj [Benadryl] MEDS 11/05/16 23:07 Discontinued 50 mg IM ONCE STA Lorazepam Inj [Ativan] MEDS 11/05/16 23:07 Discontinued 2 mg IM ONCE STA Medications Discontinued Medications Generic Name Dose Route Start Last Admin Trade Name Freq PRN Reason Stop Dose Admin Diphenhydramine HCl 50 mg 11/05/16 23:07 11/05/16 23:32 Benadryl IM 11/05/16 23:08 50 mg ONCE STA Administration Lorazepam 2 mg 11/05/16 23:07 11/05/16 23:32 Ativan IM 11/05/16 23:08 2 mg ONCE STA Administration Vital Signs: Temp Pulse Resp BP Pulse Ox 11/05/16 23:01 98.5 F 82 18 144/80 H 99 Departure - Departure Time of Disposition: 00:20 Disposition: HOME SELF-CARE Discharge Problem: Anxiety Instructions: Anxiety (ED) Condition: Good Pt referred to PMD for follow-up: Yes Additional Instructions: f/u with pcp Allergies/Adverse Reactions: Allergies No Known Drug Allergies Adverse Reaction (Verified 11/05/16 23:04) Home Medications: Ambulatory Orders Alprazolam [Xanax] 0.5 mg PO QID #120 05/20/16 Metoclopramide HCl [Reglan] 10 mg PO DAILY #30 11/04/16 Risperdal 1 mg PO BEDTIME #30 11/04/16 Disposition Discussed With: Patient
[2016-11-05] MEDS: BENADRYL IM STA (23:32)
[2016-11-05] MEDS: ATIVAN IM STA (23:32)
== END 2016-11-06 00:34 | disposition home or self-care (01) ==
LOC: ED 23:00
DX: F41.9 Anxiety disorder, unspecified (principal)
CPT/HCPCS: 96372; 99283

== ENCOUNTER 2017-01-10 20:29 | Emergency (ER) ==
[2017-01-10 20:29] VITALS: BMI 19.5
[2017-01-10 20:41] VITALS: BP 136/74; TEMP 97.5
[2017-01-10] MEDS ORDERED: ATIVAN IM STA (20:59)
[2017-01-10] MEDS ORDERED: ZOFRAN 4 MG/2 ML IM STA (20:59)
--- NOTE | 2017-01-10 21:07 | ED.PDOC ---
General ED Provider: Dr. BRENNAN PENA Chief Complaint: Nausea/Vomiting Stated Complaint: Got stressed out today, not able to keep my meds down, vomitings, panic attack bad. Time Seen by Physician: 21:05 Mode of Arrival: Walk-In Information Source: Patient Primary Care Provider: BRENNAN [facility] Nursing and Triage Documentation Reviewed and Agree: Yes Psychological Complaint Exam - Psychiatric Complaint/Exam Patient Complains Of: Present: Other (panic attack) Symptoms Are: Still present Timing: Constant Episodes Lasting: Hours Initial Severity: Moderate Current Severity: Moderate Character: Present: Anxious Aggravating: Reports: Recent stress Associated Signs And Symptoms: Denies: Hostile, Confused, Hallucinating, Paranoid behavior, Sleep disturbance, Appetite change Related History: Reports: Recent stressors. Denies: Suicidal thoughts, Homicidal thoughts Completed Suicide Risk Factors: None Patient In Custody Of Police: No Social Withdrawal Present: No Social Isolation Present: No Prior Suicide Attempt: No Related Surgical History: Reports: None Patient Uncooperative For Exam: No Mood: Present: Anxious Appearance: Present: Clean Thought Process: Present: Logical Insight: Present: Good Memory: Intact Judgement: Normal Differential Diagnoses: Anxiety Review of Systems - Review Of Systems Constitutional: Reports: Malaise Eyes: Reports: No symptoms Ears, Nose, Mouth, Throat: Reports: No symptoms Respiratory: Reports: No symptoms Cardiac: Reports: No symptoms GI: Reports: Nausea, Vomiting : Reports: No symptoms Musculoskeletal: Reports: No symptoms Skin: Reports: No symptoms Neurological: Reports: Anxiety Endocrine: Reports: No symptoms Hematologic/Lymphatic: Reports: No symptoms All Other Systems: Reviewed and Negative Past Medical History - Past Medical History Previously Healthy: Yes Endocrine: Reports: None Cardiovascular: Reports: None Respiratory: Reports: None Hematological: Reports: None Gastrointestinal: Reports: Pancreatitis ( [facility] fe[facility]:: Sheri 06/10/15) Genitourinary: Reports: None Neuro/Psych: Reports: Anxiety, PTSD Musculoskeletal: Reports: None Cancer: Reports: None Last Menstrual Period: 12/17/16 Other Pertinent Past Medical History: PANCREATITIS, PTSD CCE ANX, Drug abuser - Surgical History General Surgical History: Reports: Cholecystectomy - Family History Family History: Reports: Unknown - Social History Smoking Status: Current every day smoker Smoking Cessation Counseling Time: > 3 min - 10 min Hx Substance Use: Yes (marijuana) Alcohol Screening: Occasionally - Immunizations Tetanus Shot up to Date: Yes Physical Exam - Physical Exam Appearance: Ill-appearing, Thin Ill-appearing: Mild Eyes: ALONZO, EOMI, Conjunctiva clear ENT: Ears normal, Nose normal, Oropharynx normal Respiratory: Airway patent, Breath sounds clear, Breath sounds equal, Respirations nonlabored Cardiovascular: RRR, Pulses normal, No rub, No murmur GI/: Soft, Nontender, No masses, Bowel sounds normal, No Organomegaly Musculoskeletal: Normal strength, ROM intact, No edema, No calf tenderness Skin: Warm, Dry, Normal color Neurological: Sensation intact, Motor intact, Reflexes intact, Cranial nerves intact, Alert, Oriented Psychiatric: Affect appropriate, Mood appropriate Critical Care Note - Critical Care Note Total Time (mins): 0 Course - Course Orders, Labs, Meds: Orders Category Date Time Status Lorazepam Inj [Ativan] MEDS 01/10/17 20:59 Discontinued 1 mg IM ONCE STA Ondansetron HCl/Pf [Zofran 4 mg/2 ml] MEDS 01/10/17 20:59 Discontinued 4 mg IM ONCE STA Medications Discontinued Medications Generic Name Dose Route Start Last Admin Trade Name Ignacio PRN Reason Stop Dose Admin Lorazepam 1 mg 01/10/17 20:59 01/10/17 21:11 Ativan IM 01/10/17 21:00 1 mg ONCE STA Administration Ondansetron HCl 4 mg 01/10/17 20:59 01/10/17 21:14 Zofran 4 Mg/2 Ml IM 01/10/17 21:00 4 mg ONCE STA Administration Vital Signs: Temp Pulse Resp BP Pulse Ox 01/10/17 20:33 97.5 F L 60 20 136/74 99 Departure - Departure Time of Disposition: 21:08 Disposition: HOME SELF-CARE Discharge Problem: Panic attack Instructions: Panic Attack (ED) Condition: Stable Pt referred to PMD for follow-up: Yes Additional Instructions: INCREASE HYDRATION KEEP F/U WITH PSYCHIATRIST Allergies/Adverse Reactions: Allergies No Known Drug Allergies Adverse Reaction (Verified 01/10/17 20:38) Disposition Discussed With: Patient
== END 2017-01-10 23:10 | disposition home or self-care (01) ==
LOC: ED 20:29
DX: F41.0 Panic disorder [episodic paroxysmal anxiety] (principal); F17.210 Nicotine dependence, cigarettes, uncomplicated
CPT/HCPCS: 96372; 99283

== ENCOUNTER 2017-01-13 06:41 | Emergency (ER) ==
[2017-01-13 06:42] VITALS: BMI 19.5
[2017-01-13 06:50] VITALS: BP 147/82; TEMP 98.6
[2017-01-13] MEDS ORDERED: ATIVAN IM STA (06:53)
--- NOTE | 2017-01-13 06:56 | ED.PDOC ---
General ED Provider: Dr. ACACIA MCCARTHY-ER Chief Complaint: Psychiatric Complaint Stated Complaint: im having a panic attack--when i have a panic attack i get nauseated Time Seen by Physician: 06:45 Mode of Arrival: Walk-In Information Source: Patient Exam Limitations: No limitations [facility] Care Provider[facility] Nursing and Triage Documentation Reviewed and Agree: Yes Psychological Complaint Exam - Psychiatric Complaint/Exam Patient Complains Of: Present: Other (anxiety) Onset/Duration: last night Symptoms Are: Still present Timing: Constant Episodes Lasting: Hours Initial Severity: Mild Current Severity: Moderate Character: Present: Fearful, Anxious. Absent: Manic, Depressed, Angry Aggravating: Reports: None Associated Signs And Symptoms: Denies: Hostile, Confused, Hallucinating, Paranoid behavior, Sleep disturbance, Appetite change Related History: Reports: Recent stressors Completed Suicide Risk Factors: None Patient In Custody Of Police: No Social Withdrawal Present: No Social Isolation Present: No Prior Suicide Attempt: No Injury From Prior Suicide Attempt: No Related Surgical History: Reports: None Patient Uncooperative For Exam: No Mood: Present: Anxious Appearance: Present: Clean Thought Process: Present: Logical Insight: Present: Poor Memory: Intact Judgement: Normal Danger To Others: No Differential Diagnoses: Anxiety, Other Review of Systems - Review Of Systems Constitutional: Reports: No symptoms Eyes: Reports: No symptoms Ears, Nose, Mouth, Throat: Reports: No symptoms Respiratory: Reports: No symptoms Cardiac: Reports: No symptoms GI: Reports: No symptoms : Reports: No symptoms Musculoskeletal: Reports: No symptoms Skin: Reports: No symptoms Neurological: Reports: Anxiety Endocrine: Reports: No symptoms Hematologic/Lymphatic: Reports: No symptoms All Other Systems: Reviewed and Negative Past Medical History - Past Medical History Previously Healthy: Yes Endocrine: Reports: None Cardiovascular: Reports: None Respiratory: Reports: None Hematological: Reports: None Gastrointestinal: Reports: Pancreatitis ( [facility] february 2015:: Sheri 06/10/15) Genitourinary: Reports: None Neuro/Psych: Reports: Anxiety, PTSD Musculoskeletal: Reports: None Cancer: Reports: None Last Menstrual Period: DECEMBER 16 2016 Other Pertinent Past Medical History: PANCREATITIS, PTSD CCE ANX, Drug abuser - Surgical History General Surgical History: Reports: Cholecystectomy - Family History Family History: Reports: Unknown - Social History Smoking Status: Current every day smoker, Light tobacco smoker Hx Substance Use: Yes (marijuana) Alcohol Screening: Occasionally - Immunizations Tetanus Shot up to Date: Yes Physical Exam - Physical Exam Appearance: Well-appearing, No pain distress, Well-nourished Eyes: ALOZNO, EOMI, Conjunctiva clear ENT: Ears normal, Nose normal, Oropharynx normal Neck: Supple Respiratory: Airway patent, Breath sounds clear, Breath sounds equal, Respirations nonlabored Cardiovascular: RRR, Pulses normal, No rub, No murmur GI/: Soft, Nontender, No masses, Bowel sounds normal, No Organomegaly Musculoskeletal: Normal strength, ROM intact, No edema, No calf tenderness Skin: Warm, Dry, Normal color Neurological: Sensation intact, Motor intact, Reflexes intact, Cranial nerves intact, Alert, Oriented Psychiatric: Anxious Re-Evaluation - Re-Evaluation Time of Re-Evaluation: 07:25 Status: Improved Vital Signs Stable: Yes Pain Level: 0 Appearance: NAD Lungs: Clear Skin: Warm and Dry Neuro: Alert and Oriented X3 CV: RRR Physician Notification - Case Discussed Physician Notified: dr akers Time of Notification: 07:00 Critical Care Note - Critical Care Note Total Time (mins): 0 Course - Course Orders, Labs, Meds: Orders Category Date Time Status Lorazepam Inj [Ativan] MEDS 01/13/17 06:53 Discontinued 2 mg IM ONCE STA Medications Discontinued Medications Generic Name Dose Route Start Last Admin Trade Name Freq PRN Reason Stop Dose Admin Lorazepam 2 mg 01/13/17 06:53 Ativan IM 01/13/17 06:54 ONCE STA Vital Signs: Temp Pulse Resp BP Pulse Ox 01/13/17 06:42 98.6 F 75 20 147/82 H 100 Departure - Departure Time of Disposition: 06:57 Disposition: HOME SELF-CARE Discharge Problem: Anxiety Instructions: Panic Disorder (ED), Anxiety (ED), Panic Attack (ED) Condition: Good Pt referred to PMD for follow-up: Yes Additional Instructions: f/u with pcp Allergies/Adverse Reactions: Allergies No Known Drug Allergies Adverse Reaction (Verified 01/13/17 06:50) Disposition Discussed With: Patient
== END 2017-01-13 08:02 | disposition home or self-care (01) ==
LOC: ED 06:41
DX: F41.0 Panic disorder [episodic paroxysmal anxiety] (principal); F17.210 Nicotine dependence, cigarettes, uncomplicated
CPT/HCPCS: 96372; 99283

== ENCOUNTER 2017-01-23 16:03 | Emergency (ER) ==
[2017-01-23 16:20] VITALS: TEMP 98.9; BMI 18.8
[2017-01-23 16:25] VITALS: BP 110/60
--- NOTE | 2017-01-23 16:27 | ED.PDOC ---
General ED Provider: Dr. JOSH BARKER JR Chief Complaint: Laceration Stated Complaint: punched double pane window angry swellingover 5th metacarpal 2 puncture wounds and swelling right wrist. cuts to left thigh self cutting but states not suicidal reportedly male called and states that patient was suicidal when she cut herself patient denies 10 minutes ago-98.9 71 16 95% 8/10 Time Seen by Physician: 16:20 Mode of Arrival: Walk-In Information Source: Patient Exam Limitations: No limitations [facility] Nursing and Triage Documentation Reviewed and Agree: No Review of Systems - Review Of Systems Constitutional: Reports: No symptoms Eyes: Reports: No symptoms Ears, Nose, Mouth, Throat: Reports: No symptoms Respiratory: Reports: No symptoms Cardiac: Reports: No symptoms GI: Reports: No symptoms : Reports: No symptoms Musculoskeletal: Reports: No symptoms Skin: Reports: Lesions (left thigh(from last night) three longitudinal 2-3cm lac through skin states wishes to have rebandaged- two 5-6mm lac right wrist) Neurological: Reports: Anxiety, Emotional problems All Other Systems: Other Past Medical History - Past Medical History Previously Healthy: Yes Endocrine: Reports: None Cardiovascular: Reports: None Respiratory: Reports: None Hematological: Reports: None Gastrointestinal: Reports: Pancreatitis ( [facility] pancreatitis february 2015:: Sheri 06/10/15) Genitourinary: Reports: None Neuro/Psych: Reports: Anxiety, PTSD Musculoskeletal: Reports: None Cancer: Reports: None Last Menstrual Period: due any day Other Pertinent Past Medical History: PANCREATITIS, PTSD CCE ANX, Drug abuser - Surgical History General Surgical History: Reports: Cholecystectomy - Family History Family History: Reports: Unknown - Social History Smoking Status: Current every day smoker, Light tobacco smoker Hx Substance Use: Yes (marijuana) Alcohol Screening: Occasionally Physical Exam - Physical Exam Appearance: Well-appearing, No pain distress, Well-nourished Pain Distress: Moderate Neck: Supple Respiratory: Airway patent Musculoskeletal: Normal strength, ROM intact, No calf tenderness, Edema Skin: Warm, Dry (note lesions) Interpretation - EKG Interpretation Time of EKG #1: 17:31 Rate: Normal Rhythm: Sinus Ectopy: None [place]: [place] ST Segment: Normal (sinus arrythmia) Physician Notification - Case Discussed Endorsed To/Discussed With: DR MCCARTHY Time of Discussion: 18:54 Critical Care Note - Critical Care Note Total Time (mins): 0 Course - Course Hematology/Chemistry: 01/23/17 17:15 01/23/17 17:15 Orders, Labs, Meds: Lab Review 01/23/17 01/23/17 17:15 17:20 WBC 10.27 H RBC 4.39 Hgb 13.9 Hct 40.6 MCV 92.5 MCH 31.7 H MCHC 34.2 RDW Coeff of Giovani 12.7 Plt Count 223 Immature Gran % (Auto) 0.5 Neut % (Auto) 69.3 Lymph % (Auto) 21.8 [place] % (Auto) 6.1 Eos % (Auto) 1.6 Baso % (Auto) 0.7 Immature Gran # (Auto) 0.1 Neut # 7.1 H Lymph # 2.2 [place] # 0.6 Eos # 0.2 Baso # 0.1 Sodium 143 Potassium 4.0 Chloride 106 Carbon Dioxide 25 Anion Gap 16.0 BUN 11 Creatinine 0.97 Estimated GFR (MDRD) 72.00 BUN/Creatinine Ratio 11.34 Glucose 89 Calcium 9.6 Total Bilirubin 0.41 AST 13 L ALT 12 Alkaline Phosphatase 80 Total Protein 6.8 Albumin 3.9 Globulin 2.9 Albumin/Globulin Ratio 1.34 TSH 0.369 Urine Color Yellow Urine Clarity Cloudy Urine pH 6.0 Ur Specific [place] 1.020 Urine Protein 2+ Urine Glucose (UA) Negative Urine Ketones Trace Urine Blood 3+ Urine Nitrite Negative Urine Bilirubin 1+ Urine Urobilinogen 0.2 Ur Leukocyte Esterase Trace Urine Microscopic RBC Tntc Urine Microscopic WBC 2-5 Ur Squamous Epith Cells Not present Urine Bacteria 1+ Urine Mucus 3+ Salicylate Level mg/dL < 5.0 Urine Opiates Screen Negative Ur Oxycodone Screen Negative Urine Methadone Screen Negative Ur Propoxyphene Screen Negative Acetaminophen < 3 L Ur Barbiturates Screen Negative U Tricyclic Antidepress Negative Ur Phencyclidine Scrn Negative Ur Amphetamine Screen Positive U Methamphetamines Scrn Positive U Benzodiazepines Scrn Positive Urine Cocaine Screen Positive U Cannabinoids Screen Positive Plasma/Serum Alcohol < 10.0 Orders Category Date Time Status EKG-(ED ONLY) Stat CARDIO 01/23/17 17:07 Completed GERRI [ED GERRI WRAP] .ONCE EMERGENCY 01/23/17 17:11 Active ACETAMINOPHEN Stat LAB 01/23/17 17:15 Completed BLOOD ALCOHOL Stat LAB 01/23/17 17:15 Completed CBC W/ AUTO DIFF Stat LAB 01/23/17 17:15 Completed COMPREHENSIVE METABOLIC PANEL Stat LAB 01/23/17 17:15 Completed DRUG SCREEN, URINE, RAPID Stat LAB 01/23/17 17:20 Completed SALICYLATE Stat LAB 01/23/17 17:15 Completed THYROID STIMULATING HORMONE Stat LAB 01/23/17 17:15 Completed URINALYSIS C & S IF INDICATED Stat LAB 01/23/17 17:20 Completed URINE CULTURE Routine LAB 01/23/17 17:20 Received Alprazolam [Xanax] MEDS 01/23/17 18:30 Discontinued 0.5 mg .ROUTE .STK-MED ONE Alprazolam [Xanax] MEDS 01/23/17 18:26 Discontinued 0.5 mg PO ONCE STA Hydrocodone Bit/Acetaminophen [[place] 5-325] MEDS 01/23/17 17:03 Discontinued 1 tab PO ONCE STA HAND, RIGHT 3 VIEWS Stat RADS 01/23/17 16:20 Completed WRIST, RIGHT 3 VIEWS Stat RADS 01/23/17 16:25 Completed Medications Discontinued Medications Generic Name Dose Route Start Last Admin Trade Name Freq PRN Reason Stop Dose Admin Acetaminophen/Hydrocodone Bitart 1 tab 01/23/17 17:03 01/23/17 18:34 [place] 5-325 PO 01/23/17 17:04 Not Given ONCE STA Alprazolam 0.5 mg 01/23/17 18:26 01/23/17 18:33 Xanax PO 01/23/17 18:27 Not Given ONCE STA Vital Signs: Temp Pulse Resp BP Pulse Ox 01/23/17 16:05 98.9 F 71 16 110/60 95 Departure - Departure Time of Disposition: 17:12 Disposition: HOME SELF-CARE Discharge Problem: Laceration - injury, Contusion of hand, right, Contusion of wrist, right, Medical clearance for psychiatric admission Instructions: Laceration (ED), Contusion in Adults (ED), Laceration Without Closure (ED), Medical Clearance for Psychiatric Care (ED) Condition: Good Pt referred to PMD for follow-up: Yes Additional Instructions: MEDICALLY STABLE FOR PSYCHIATRIC ADMISSION DAILY BANDAGE CHANGE TO RIGHT WRIST AND TO LEFT UPPER LEG "HEALING WITHOUT SUTURES" follow up PMD 2weeks for hand bruise(shoudl be resolved) daily bandage change norco for pain return if increasing redness swelling drainage or increasing pain Ic e 20 minutes three times a day elevate above heart 2 hours twice a dya gerri bandage for comfort Prescriptions: Hydrocodone Bit/Acetaminophen [[place] 5-325] 1 - 2 tab PO Q6HR PRN #12 tablet PRN Reason: pain Allergies/Adverse Reactions: Allergies No Known Drug Allergies Adverse Reaction (Verified 01/23/17 16:10) Home Medications: Ambulatory Orders Hydrocodone Bit/Acetaminophen [[place] 5-325] 1 - 2 tab PO Q6HR PRN #12 tablet
--- NOTE | 2017-01-23 16:45 | DI ---
EXAM: Right wrist, three views HISTORY: Trauma, laceration COMPARISON: None. FINDINGS: The alignment is normal. Joint spaces appear normal. No fracture is identified. Modera te soft tissue swelling seen dorsum of the hand. No radiopaque foreign body. IMPRESSION: No fracture or dislocation is identified. Soft tissue swelling seen dorsum of the hand and wrist. No radiopaque foreign body is seen.
--- NOTE | 2017-01-23 16:46 | DI ---
EXAM: Three views of the right hand. History: Right hand trauma. Findings: No acute fracture or dislocation. No abnormal calcifications or radiopaque foreign nathanael s. Joint spaces are preserved. Soft tissue swelling dorsal to the knuckles. Impression: No acute osseous abnormality. Soft tissue swelling dorsal to the knuckles
[2017-01-23] MEDS ORDERED: NORCO 5-325 PO STA (17:03)
[2017-01-23 17:34] LABS: BASOPHILS # (AUTO) 0.1 K/uL (0-0.2); BASOPHILS % (AUTO) 0.7 % (0.0-3.0); EOSINOPHILS # (AUTO) 0.2 K/ul (0.0-0.7); EOSINOPHILS % (AUTO) 1.6 % (0.0-7.0); HEMATOCRIT 40.6 % (37.0-47.0); HEMOGLOBIN 13.9 g/dl (12.0-16.0); IMMATURE GRANULOCYTE % (AUTO) 0.5 % (0.0-5.0); LYMPHOCYTES # (AUTO) 2.2 K/uL (0.60-3.4); LYMPHOCYTES % (AUTO) 21.8 (10.0-50.0); MEAN CORPUSCULAR HEMOGLOBIN 31.7 pg (27.0-31.0); MEAN CORPUSCULAR HGB CONC 34.2 (31.8-35.4); MEAN CORPUSCULAR VOLUME 92.5 fl (81.0-99.0); MONOCYTES # (AUTO) 0.6 K/uL (0.4-2.0); MONOCYTES % (AUTO) 6.1 (0-10); NEUTROPHILS # (AUTO) 7.1 K/ul (2.0-6.9); NEUTROPHILS % (AUTO) 69.3; PLATELET COUNT 223 10^3/uL (140-440); RED BLOOD COUNT 4.39 10^6/ul (4.20-5.40); WHITE BLOOD COUNT 10.27 K/ul (4.6-10.2)
[2017-01-23 18:18] LABS: ACETAMINOPHEN < 3 ug/ml (10-30); ALANINE AMINOTRANSFERASE 12 U/L (12-78); ALBUMIN 3.9 g/dL (3.4-5.0); ALBUMIN/GLOBULIN RATIO 1.34; ALKALINE PHOSPHATASE 80 U/L (42-98); ASPARTATE AMINO TRANSFERASE 13 U/L (15-37); BILIRUBIN,TOTAL 0.41 mg/dL (0.00-1.20); BLOOD UREA NITROGEN 11 mg/dL (7-18); BUN/CREATININE RATIO 11.34; CALCIUM 9.6 mg/dL (8.2-10.2); CARBON DIOXIDE 25 mmol/L (21-32); CHLORIDE 106 mmol/L (98-107); CREATININE 0.97 mg/dL (0.60-1.30); GLUCOSE 89 mg/dL (70-110); SALICYLATE < 5.0 mg/dL (2.8-20.0); SODIUM 143 mmol/L (136-145); TOTAL PROTEIN 6.8 g/dL (6.4-8.2)
[2017-01-23] MEDS ORDERED: XANAX PO STA (18:26)
[2017-01-23 18:33] LABS: BILIRUBIN,URINE 1+ (NEGATIVE); KETONES,URINE Trace (NEGATIVE); LEUKOCYTE ESTERASE ,URINE Trace (NEGATIVE); NITRITE,URINE Negative (NEGATIVE); PROTEIN,URINE 2+ (NEGATIVE); URINE, BLOOD 3+ (NEGATIVE)
[2017-01-23] MEDS: XANAX ONE ×2 (18:33→18:34)
[2017-01-23 18:39] LABS: ADD URINE MICROSCOPIC YES
[2017-01-23 18:40] LABS: BACTERIA,URINE 1+ (NOT PRESENT)
[2017-01-23 18:48] LABS: COCAIN SCREEN,URINE POSITIVE (NEGATIVE)
[2017-01-23 19:35] LABS: URINE PREGNANCY INTERNAL QC INTERNAL QC VALID
[2017-01-23] MEDS ORDERED: ATIVAN IM STA (21:18)
[2017-01-23] MEDS ORDERED: HALDOL IM STA (21:18)
[2017-01-23] MEDS ORDERED: COGENTIN IM STA (21:18)
== END 2017-01-23 23:58 | disposition home or self-care (01) ==
LOC: ED 16:03
DX: S61.511A Laceration without foreign body of right wrist, initial encounter (principal); S71.112A Laceration without foreign body, left thigh, initial encounter; F17.210 Nicotine dependence, cigarettes, uncomplicated; S60.221A Contusion of right hand, initial encounter; S60.211A Contusion of right wrist, initial encounter; W22.8XXA Striking against or struck by other objects, initial encounter; W45.8XXA Other foreign body or object entering through skin, initial encounter; X78.9XXA Intentional self-harm by unspecified sharp object, initial encounter
CPT/HCPCS: 36415; 80053; 80306; 80307; 81001; 81025; 84443; 85025; 87086; 93005; 93010; 96372; 99285

== ENCOUNTER 2017-02-28 18:59 | Emergency (ER) ==
[2017-02-28 19:05] VITALS: BP 129/80; TEMP 98.5; BMI 19.5
[2017-02-28] MEDS ORDERED: SODIUM CHLORIDE 1,000 ML IV STA (19:07)
[2017-02-28] MEDS ORDERED: PHENERGAN 25 MG/ML VIAL 25 MG in SODIUM CHLORIDE 50 ML IV STA (19:07)
--- NOTE | 2017-02-28 19:11 | ED.PDOC ---
General ED Provider: Dr. CHRISS QURESHI Chief Complaint: Nausea/Vomiting Stated Complaint: Patient is a 21 year old female who comes to the Er wih compalins of diffuse abdomianl pain and vomiting that stated two hours ago. States she has vomited 10 times today. Ate some salad and meat about one hour ago. Has a history of Pancreatitis in the past. Time Seen by Physician: 19:05 Mode of Arrival: Walk-In Information Source: Patient Exam Limitations: No limitations [facility] and T[facility] Documentation Reviewed and Agree: Yes GI Complaint Exam - Abdominal Pain Complaint/Exam Onset: Sudden Duration: 1 hour Symptoms Are: Still present Timing: Constant Initial Severity: Moderate Current Severity: Severe Location of Pain: Diffuse Radiates To: Reports: Back Character: Reports: Aching, Throbbing Alleviating: Reports: Vomiting Associated Signs and Symptoms: Reports: Back pain, Nausea, Vomiting. Denies: Diaphoresis, Fever, Cough, Chest pain, Dizziness, Constipation, Blood in stool, Dysuria, Urinary frequency, Decreased urine output, Decreased appetite, Vaginal bleeding, Vaginal discharge, Diarrhea, Sore throat, Decreased activity Related History: Reports: Similar episode (with prior pancratitis ) AAA Risk Factors: Reports: None Cardiac Risk Factors: Reports: None Ectopic Risk Factors: Reports: None Ovarian Torsion Risk Factors: Reports: None Surgical Obstruction Risk Factors: Reports: None Related Surgical History: Reports: None Patient Rh Status: Unknown Abdominal Findings: Absent: Pulsatile mass, Abdominal distention, Unequal femoral pulses, Rebound tenderness, Peritoneal signs, McBurney's Point tender, CVA Tenderness, Hernia, Inguinal swelling Differential Diagnoses: Pancreatitis, UTI Review of Systems - Review Of Systems Constitutional: Reports: Fever, Sweats Eyes: Reports: No symptoms Ears, Nose, Mouth, Throat: Reports: No symptoms Respiratory: Reports: No symptoms Cardiac: Reports: No symptoms GI: Reports: Abdominal pain, Nausea, Vomiting. Denies: Diarrhea : Reports: No symptoms Musculoskeletal: Reports: No symptoms Skin: Reports: No symptoms Neurological: Reports: No symptoms Endocrine: Reports: No symptoms Hematologic/Lymphatic: Reports: No symptoms All Other Systems: Reviewed and Negative Past Medical History - Past Medical History Previously Healthy: Yes Endocrine: Reports: None Cardiovascular: Reports: None Respiratory: Reports: None Hematological: Reports: None Gastrointestinal: Reports: Pancreatitis ( [facility] pancreatitis february 2015:: Sheri 06/10/15) Genitourinary: Reports: None Neuro/Psych: Reports: Anxiety, PTSD Musculoskeletal: Reports: None Cancer: Reports: None Last Menstrual Period: 02/23/17 Other Pertinent Past Medical History: PANCREATITIS, PTSD CCE ANX, Drug abuser - Surgical History General Surgical History: Reports: Cholecystectomy - Family History Family History: Reports: Unknown - Social History Smoking Status: Current every day smoker, Light tobacco smoker Hx Substance Use: Yes (marijuana) Alcohol Screening: Occasionally - Immunizations Tetanus Shot up to Date: Yes Physical Exam - Physical Exam Appearance: Ill-appearing Ill-appearing: Moderate Pain Distress: Severe Neck: Supple Respiratory: Airway patent, Breath sounds clear, Breath sounds equal, Respirations nonlabored Cardiovascular: RRR, Pulses normal, No rub, No murmur GI/: Soft, No masses, Bowel sounds normal, No Organomegaly, Tender (mild diffuse ) Musculoskeletal: Normal strength, ROM intact, No edema, No calf tenderness Skin: Warm, Dry, Normal color Neurological: Sensation intact, Motor intact, Reflexes intact, Cranial nerves intact, Alert, Oriented Psychiatric: Anxious Critical Care Note - Critical Care Note Total Time (mins): 0 Course - Course Hematology/Chemistry: 02/28/17 19:20 02/28/17 19:20 Orders, Labs, Meds: Lab Review 02/28/17 02/28/17 19:20 19:37 WBC 16.16 H RBC 4.32 Hgb 13.6 Hct 38.6 MCV 89.4 MCH 31.5 H MCHC 35.2 RDW Coeff of Giovani 12.9 Plt Count 266 Immature Gran % (Auto) 0.4 Neut % (Auto) 79.0 Lymph % (Auto) 14.1 [place] % (Auto) 5.8 Eos % (Auto) 0.2 Baso % (Auto) 0.5 Immature Gran # (Auto) 0.1 Neut # 12.8 H Lymph # 2.3 [place] # 0.9 Eos # 0.0 Baso # 0.1 Sodium 139 Potassium 3.9 Chloride 106 Carbon Dioxide 21 Anion Gap 15.9 BUN 14 Creatinine 0.76 Estimated GFR (MDRD) 96.00 BUN/Creatinine Ratio 18.42 Glucose 95 Calcium 10.0 Total Bilirubin 0.40 AST 26 ALT 28 Alkaline Phosphatase 70 Total Protein 7.3 Albumin 4.2 Globulin 3.1 Albumin/Globulin Ratio 1.35 Amylase 139 H Lipase 25 Serum , Qual Negative Urine Color Yellow Urine Clarity Hazy Urine pH 7.0 Ur Specific [place] 1.020 Urine Protein 1+ Urine Glucose (UA) Negative Urine Ketones Negative Urine Blood Negative Urine Nitrite Negative Urine Bilirubin Negative Urine Urobilinogen 0.2 Ur Leukocyte Esterase Trace Urine Microscopic RBC 0-2 Urine Microscopic WBC 5-10 Ur Squamous Epith Cells 0-2 Urine Mucus Trace Orders Category Date Time Status ED IV/MEDIPORT/POWERPORT .ONCE EMERGENCY 02/28/17 19:06 Active AMYLASE Stat LAB 02/28/17 19:20 Completed CBC W/ AUTO DIFF Stat LAB 02/28/17 19:20 Completed COMPREHENSIVE METABOLIC PANEL Stat LAB 02/28/17 19:20 Completed LIPASE Stat LAB 02/28/17 19:20 Completed SERUM Stat LAB 02/28/17 19:20 Completed URINALYSIS C & S IF INDICATED Stat LAB 02/28/17 19:37 Completed URINE CULTURE Stat LAB 02/28/17 19:49 Received 0.9 % Sodium Chloride [Saline Flush] MEDS 02/28/17 19:07 Discontinued 1 syr IVF PRN PRN Dicyclomine HCl [Bentyl] MEDS 02/28/17 20:10 Discontinued 20 mg PO ONCE STA Pantoprazole Sodium [Protonix IV] MEDS 02/28/17 19:29 Discontinued 40 mg IVP ONCE STA Promethazine HCl [Phenergan 25 mg/ml Vial] MEDS 02/28/17 19:19 Discontinued 25 mg .ROUTE .STK-MED ONE Promethazine HCl [Phenergan 25 mg/ml Vial] 25 mg MEDS 02/28/17 19:07 Discontinued 0.9 % Sodium Chloride [Sodium Chloride] 50 ml IV ONCE Sodium Chloride 0.9% [Sodium Chloride] 1,000 ml MEDS 02/28/17 19:07 Discontinued IV BOLUS Medications Discontinued Medications Generic Name Dose Route Start Last Admin Trade Name Freq PRN Reason Stop Dose Admin Dicyclomine HCl 20 mg 02/28/17 20:10 02/28/17 20:17 Bentyl PO 02/28/17 20:11 20 mg ONCE STA Administration Promethazine HCl 25 mg/ Sodium 51 mls @ 75 mls/hr 02/28/17 19:07 02/28/17 19: 32 Chloride IV 02/28/17 19:47 75 mls/hr ONCE STA Administration Sodium Chloride 1,000 mls @ 1,000 mls/hr 02/28/17 19:07 02/28/17 19:33 Sodium Chloride IV 02/28/17 20:06 1,000 mls/hr BOLUS STA Administration Pantoprazole Sodium 40 mg 02/28/17 19:29 02/28/17 19:32 Protonix Iv IVP 02/28/17 19:30 40 mg ONCE STA Administration Sodium Chloride 1 syr 02/28/17 19:07 Saline Flush IVF PRN PRN To flush IV Vital Signs: Temp Pulse Resp BP Pulse Ox 02/28/17 19:00 98.5 F 95 H 18 129/80 98 Departure - Departure Time of Disposition: 20:03 Disposition: HOME SELF-CARE Discharge Problem: Nausea, Vomiting, Gastritis Instructions: Gastritis (ED) Condition: Fair Pt referred to PMD for follow-up: Yes Additional Instructions: Push fluids Follow up with PCP in 3 days Take medications as prescribed. Prescriptions: Dicyclomine HCl [Bentyl] 10 mg PO TID PRN #30 capsule PRN Reason: Abdominal Pain Allergies/Adverse Reactions: Allergies No Known Drug Allergies Adverse Reaction (Verified 02/28/17 19:04) Home Medications: Ambulatory Orders Dicyclomine HCl [Bentyl] 10 mg PO TID PRN #30 capsule 02/28/17
[2017-02-28] MEDS ORDERED: PROTONIX IV 40 MG in SODIUM CHLORIDE 100 ML IV STA (19:18)
[2017-02-28] MEDS ORDERED: PHENERGAN 25 MG/ML VIAL ONE (19:19)
[2017-02-28 19:23] LABS: BASOPHILS # (AUTO) 0.1 K/uL (0-0.2); BASOPHILS % (AUTO) 0.5 % (0.0-3.0); EOSINOPHILS % (AUTO) 0.2 % (0.0-7.0); HEMATOCRIT 38.6 % (37.0-47.0); HEMOGLOBIN 13.6 g/dl (12.0-16.0); IMMATURE GRANULOCYTE % (AUTO) 0.4 % (0.0-5.0); LYMPHOCYTES # (AUTO) 2.3 K/uL (0.60-3.4); LYMPHOCYTES % (AUTO) 14.1 (10.0-50.0); MEAN CORPUSCULAR HEMOGLOBIN 31.5 pg (27.0-31.0); MEAN CORPUSCULAR HGB CONC 35.2 (31.8-35.4); MEAN CORPUSCULAR VOLUME 89.4 fl (81.0-99.0); MONOCYTES # (AUTO) 0.9 K/uL (0.4-2.0); MONOCYTES % (AUTO) 5.8 (0-10); NEUTROPHILS # (AUTO) 12.8 K/ul (2.0-6.9); PLATELET COUNT 266 10^3/uL (140-440); RED BLOOD COUNT 4.32 10^6/ul (4.20-5.40); WHITE BLOOD COUNT 16.16 K/ul (4.6-10.2)
[2017-02-28] MEDS ORDERED: PROTONIX IV IVP STA (19:29)
[2017-02-28 19:37] LABS: SERUM PREGNANCY INTERNAL QC INTERNAL QC VALID
[2017-02-28 19:42] LABS: ALBUMIN 4.2 g/dL (3.4-5.0); ALBUMIN/GLOBULIN RATIO 1.35; ANION GAP 15.9; BILIRUBIN,TOTAL 0.4 mg/dL (0.00-1.20); BUN/CREATININE RATIO 18.42; CREATININE 0.76 mg/dL (0.60-1.30); POTASSIUM 3.9 mmol/L (3.5-5.10); TOTAL PROTEIN 7.3 g/dL (6.4-8.2)
[2017-02-28 19:43] LABS: BILIRUBIN,URINE Negative (NEGATIVE); KETONES,URINE Negative (NEGATIVE); LEUKOCYTE ESTERASE ,URINE Trace (NEGATIVE); NITRITE,URINE Negative (NEGATIVE); PROTEIN,URINE 1+ (NEGATIVE); URINE, BLOOD Negative (NEGATIVE)
[2017-02-28 19:48] LABS: ADD URINE MICROSCOPIC YES
[2017-02-28] MEDS ORDERED: BENTYL PO STA (20:10)
== END 2017-02-28 21:08 | disposition home or self-care (01) ==
LOC: ED 18:59
DX: K29.70 Gastritis, unspecified, without bleeding (principal); F17.210 Nicotine dependence, cigarettes, uncomplicated
CPT/HCPCS: 36415; 80053; 81001; 82150; 83690; 84703; 85025; 87086; 96361; 96365; 96375; 99283

== ENCOUNTER 2017-03-09 13:19 | Emergency (ER) ==
[2017-03-09 13:33] VITALS: BP 134/79; TEMP 98.4; BMI 19.7
[2017-03-09] MEDS ORDERED: PHENERGAN 25 MG/ML VIAL IM STA (13:47)
[2017-03-09 14:03] LABS: BASOPHILS # (AUTO) 0.1 K/uL (0-0.2); BASOPHILS % (AUTO) 0.5 % (0.0-3.0); EOSINOPHILS % (AUTO) 0.2 % (0.0-7.0); HEMATOCRIT 41.4 % (37.0-47.0); HEMOGLOBIN 14.4 g/dl (12.0-16.0); IMMATURE GRANULOCYTE % (AUTO) 0.2 % (0.0-5.0); LYMPHOCYTES # (AUTO) 1.8 K/uL (0.60-3.4); MEAN CORPUSCULAR HEMOGLOBIN 31.6 pg (27.0-31.0); MEAN CORPUSCULAR HGB CONC 34.8 (31.8-35.4); MONOCYTES # (AUTO) 0.5 K/uL (0.4-2.0); MONOCYTES % (AUTO) 5.2 (0-10); NEUTROPHILS # (AUTO) 7.4 K/ul (2.0-6.9); NEUTROPHILS % (AUTO) 75.9; PLATELET COUNT 286 10^3/uL (140-440); RED BLOOD COUNT 4.55 10^6/ul (4.20-5.40); WHITE BLOOD COUNT 9.79 K/ul (4.6-10.2)
[2017-03-09 14:15] LABS: BILIRUBIN,URINE 1+ (NEGATIVE); KETONES,URINE 1+ (NEGATIVE); LEUKOCYTE ESTERASE ,URINE Trace (NEGATIVE); NITRITE,URINE Negative (NEGATIVE); PROTEIN,URINE 1+ (NEGATIVE); URINE, BLOOD Trace-intact (NEGATIVE)
[2017-03-09 14:21] LABS: ALBUMIN 4.5 g/dL (3.4-5.0); ALBUMIN/GLOBULIN RATIO 1.32; BILIRUBIN,TOTAL 0.51 mg/dL (0.00-1.20); BUN/CREATININE RATIO 11.9; CALCIUM 10.8 mg/dL (8.2-10.2); CREATININE 0.84 mg/dL (0.60-1.30); TOTAL PROTEIN 7.9 g/dL (6.4-8.2)
[2017-03-09 14:23] LABS: ADD URINE MICROSCOPIC YES
[2017-03-09 14:24] LABS: BACTERIA,URINE 2+ (NOT PRESENT)
[2017-03-09 14:32] LABS: SERUM PREGNANCY INTERNAL QC INTERNAL QC VALID
--- NOTE | 2017-03-09 15:23 | CT ---
EXAM: CT Abdomen without contrast. CT Pelvis without contrast. HISTORY: Nausea and vomiting. Abdominal pain. COMPARISON: 09/17/2016. TECHNIQUE: Multiple axial images of the abdomen and pelvis were obtained without intravenous contra st. Images were reformatted in the coronal plane. FINDINGS: Please note that evaluation of the abdominal and pelvic structures is limited due to lack of intravenous contrast. Lung bases are clear. No acute osseous abnormality identified. Gallbladder is absent. The liver, pancreas, spleen, and adrenal glands demonstrate normal contour. No calcified renal stones or hydronephrosis detected. There is mild fluid distension of multiple small bowel loops with mild left sided small bowel wall t hickening. No transition point identified. The large bowel is normal in course and caliber without evidence for obstruction or inflammatory process. The appendix is normal. Uterus demonstrates nor mal contour. Trace amount of free pelvic fluid is within physiologic range. Urinary bladder is not well distended. No free air identified IMPRESSION: Enteritis.
--- NOTE | 2017-03-09 15:36 | ED.PDOC ---
General ED Provider: Dr. NEGIN TROY Chief Complaint: Abdominal Pain Stated Complaint: abdominal pain Time Seen by Physician: 13:30 (seen with nursing staff at home hal LEACH) Mode of Arrival: Walk-In Information Source: Patient Exam Limitations: No limitations Primary Care Provider: BRENNAN PENA-[facility] Nursing and Triage Documentation Reviewed and Agree: Yes GI Complaint Exam - Abdominal Pain Complaint/Exam Onset: Gradual Duration: 1 day Symptoms Are: Still present Timing: Intermittent Initial Severity: Moderate Current Severity: Mild Location of Pain: Diffuse Character: Reports: Cramping Aggravating: Reports: Food Alleviating: Reports: None Associated Signs and Symptoms: Reports: Nausea, Vomiting, Diarrhea. Denies: Diaphoresis, Fever, Cough, Chest pain, Dizziness, Back pain, Constipation, Blood in stool, Dysuria, Urinary frequency, Decreased urine output, Decreased appetite, Vaginal bleeding, Vaginal discharge, Sore throat, Decreased activity Review of Systems - Review Of Systems Constitutional: Reports: Malaise Eyes: Reports: No symptoms Ears, Nose, Mouth, Throat: Reports: No symptoms Respiratory: Reports: No symptoms Cardiac: Reports: No symptoms GI: Reports: Abdominal pain, Nausea, Poor appetite, Vomiting : Reports: No symptoms Musculoskeletal: Reports: No symptoms Skin: Reports: No symptoms Neurological: Reports: No symptoms Endocrine: Reports: No symptoms Hematologic/Lymphatic: Reports: No symptoms All Other Systems: Reviewed and Negative Past Medical History - Past Medical History Previously Healthy: Yes Endocrine: Reports: None Cardiovascular: Reports: None Respiratory: Reports: None Hematological: Reports: None Gastrointestinal: Reports: Pancreatitis ( amish pancreatitis february 2015:: Sheri 06/10/15) Genitourinary: Reports: None Neuro/Psych: Reports: Anxiety, PTSD Musculoskeletal: Reports: None Cancer: Reports: None Last Menstrual Period: 02/20/2017 Other Pertinent Past Medical History: PANCREATITIS, PTSD CCE ANX, Drug abuser - Surgical History General Surgical History: Reports: Cholecystectomy - Family History Family History: Reports: Unknown - Social History Smoking Status: Current every day smoker Hx Substance Use: Yes (occ THC (last time around 1200)) Alcohol Screening: Occasionally - Immunizations Tetanus Shot up to Date: Yes Physical Exam - Physical Exam Appearance: Well-appearing, No pain distress, Well-nourished Eyes: ALONZO, EOMI, Conjunctiva clear ENT: Ears normal, Nose normal, Oropharynx normal Respiratory: Airway patent, Breath sounds clear, Breath sounds equal, Respirations nonlabored Cardiovascular: RRR, Pulses normal, No rub, No murmur GI/: Soft, Nontender, No masses, Bowel sounds normal, No Organomegaly Musculoskeletal: Normal strength, ROM intact, No edema, No calf tenderness Skin: Warm, Dry, Normal color Neurological: Sensation intact, Motor intact, Reflexes intact, Cranial nerves intact, Alert, Oriented Psychiatric: Affect appropriate, Mood appropriate Interpretation - Radiology Interpretation Radiology Interpretation By: Radiologist Radiology Results: No acute changes Critical Care Note - Critical Care Note Total Time (mins): 0 Course - Course Hematology/Chemistry: 03/09/17 13:57 03/09/17 13:57 Orders, Labs, Meds: Lab Review 03/09/17 03/09/17 13:57 14:01 WBC 9.79 RBC 4.55 Hgb 14.4 Hct 41.4 MCV 91.0 MCH 31.6 H MCHC 34.8 RDW Coeff of Giovani 13.2 Plt Count 286 Immature Gran % (Auto) 0.2 Neut % (Auto) 75.9 Lymph % (Auto) 18.0 Arthur % (Auto) 5.2 Eos % (Auto) 0.2 Baso % (Auto) 0.5 Immature Gran # (Auto) 0.0 Neut # 7.4 H Lymph # 1.8 Arthur # 0.5 Eos # 0.0 Baso # 0.1 Sodium 142 Potassium 4.0 Chloride 105 Carbon Dioxide 26 Anion Gap 15.0 BUN 10 Creatinine 0.84 Estimated GFR (MDRD) 86.00 BUN/Creatinine Ratio 11.90 Glucose 101 Calcium 10.8 H Total Bilirubin 0.51 AST 17 ALT 18 Alkaline Phosphatase 81 Total Protein 7.9 Albumin 4.5 Globulin 3.4 Albumin/Globulin Ratio 1.32 Amylase 127 H Lipase 21 Serum , Qual Negative Urine Color Yellow Urine Clarity Cloudy Urine pH 7.0 Ur Specific [place] 1.025 Urine Protein 1+ Urine Glucose (UA) Negative Urine Ketones 1+ Urine Blood Trace-intact Urine Nitrite Negative Urine Bilirubin 1+ Urine Urobilinogen 0.2 Ur Leukocyte Esterase Trace Urine Microscopic RBC 2-5 Urine Microscopic WBC 5-10 Ur Squamous Epith Cells 2-5 Urine Bacteria 2+ Orders Category Date Time Status AMYLASE Stat LAB 03/09/17 13:57 Completed CBC W/ AUTO DIFF Stat LAB 03/09/17 13:57 Completed COMPREHENSIVE METABOLIC PANEL Stat LAB 03/09/17 13:57 Completed LIPASE Stat LAB 03/09/17 13:57 Completed SERUM Stat LAB 03/09/17 13:57 Completed UA [URINALYSIS C & S IF INDICATED] Stat LAB 03/09/17 14:01 Completed URINE CULTURE Stat LAB 03/09/17 14:01 Received Promethazine HCl [Phenergan 25 mg/ml Vial] MEDS 03/09/17 13:47 Discontinued 25 mg IM ONCE STA CT ABDOMEN/PELVIS WO CONTRAST Stat RADS 03/09/17 13:45 Completed Medications Discontinued Medications Generic Name Dose Route Start Last Admin Trade Name Freq PRN Reason Stop Dose Admin Promethazine HCl 25 mg 03/09/17 13:47 03/09/17 13:55 Phenergan 25 Mg/Ml Vial IM 03/09/17 13:48 25 mg ONCE STA Administration Vital Signs: Temp Pulse Resp BP Pulse Ox 03/09/17 13:26 98.4 F 78 18 134/79 99 Departure - Departure Time of Disposition: 15:34 Disposition: HOME SELF-CARE Discharge Problem: Abdominal pain Instructions: Urinary Tract Infection in Women (ED), Abdominal Pain (ED) Condition: Good Pt referred to PMD for follow-up: Yes Allergies/Adverse Reactions: Allergies No Known Drug Allergies Adverse Reaction (Verified 02/28/17 19:04) Home Medications: Ambulatory Orders Sulfamethoxazole/Trimethoprim [Bactrim Ds 800/160 mg] 1 tab PO Q12HR #10 tablet 03/09/17
== END 2017-03-09 15:49 | disposition home or self-care (01) ==
LOC: ED 13:19
DX: N39.0 Urinary tract infection, site not specified (principal); F17.210 Nicotine dependence, cigarettes, uncomplicated
CPT/HCPCS: 36415; 80053; 81001; 82150; 83690; 84703; 85025; 87086; 96372; 99283

== ENCOUNTER 2017-03-09 21:51 | Emergency (ER) ==
[2017-03-09 21:58] VITALS: BP 128/72; TEMP 98.1; BMI 19.5
[2017-03-09] MEDS ORDERED: ATIVAN IVP STA (22:12)
[2017-03-09] MEDS ORDERED: SODIUM CHLORIDE 500 ML IV STA (22:12)
[2017-03-09] MEDS ORDERED: PHENERGAN 25 MG/ML VIAL 12.5 MG in SODIUM CHLORIDE 50 ML IV STA (22:12)
--- NOTE | 2017-03-09 22:15 | ED.PDOC ---
General ED Provider: Dr. BRENNAN PENA Chief Complaint: Nausea/Vomiting Stated Complaint: Patient was here today early for the same reason, says she is not better so came back, not able to keep anything down, keep vomiting. not able to take anxiety meds, Time Seen by Physician: 22:13 Mode of Arrival: Walk-In Information Source: Patient Primary Care Provider: BRENNAN PENA-[facility] Nursing and Triage Documentation Reviewed and Agree: Yes GI Complaint Exam - Vomiting/Diarrhea Complaint/Exam Symptoms Are: Still present Episodes of Vomiting over last 24 Hours: 5 Initial Severity: Moderate Current Severity: Mild Character of Vomiting: Reports: Non-bilious Character of Diarrhea: Reports: Watery Aggravating: Reports: Food, Liquids Alleviating: Reports: None Associated Signs and Symptoms: Denies: Dizziness, Light-headedness, Melena, Hematemesis, Fever, Abdominal pain, Cramping Related History: Reports: Similar episode Recent Positive Test: No Use of Oral Contraceptives: No Use of Depoprovera: No Compliant With Contraceptive Use: No Non-GI Risk Factors: Reports: None Surgical Obstruction Risk Factors: Reports: None Related Surgical History: Reports: None Abdominal Findings: Absent: Pulsatile mass, Abdominal distention, Unequal femoral pulses Differential Diagnoses: Gastritis Review of Systems - Review Of Systems Constitutional: Reports: Malaise, Weakness Eyes: Reports: No symptoms Ears, Nose, Mouth, Throat: Reports: No symptoms Respiratory: Reports: No symptoms Cardiac: Reports: No symptoms GI: Reports: Nausea, Vomiting : Reports: No symptoms Musculoskeletal: Reports: No symptoms Skin: Reports: No symptoms Neurological: Reports: No symptoms Endocrine: Reports: No symptoms Hematologic/Lymphatic: Reports: No symptoms All Other Systems: Reviewed and Negative Past Medical History - Past Medical History Previously Healthy: Yes Endocrine: Reports: None Cardiovascular: Reports: None Respiratory: Reports: None Hematological: Reports: None Gastrointestinal: Reports: Pancreatitis ( church pancreatitis february 2015:: Sheri 06/10/15) Genitourinary: Reports: None Neuro/Psych: Reports: Anxiety, PTSD Musculoskeletal: Reports: None Cancer: Reports: None Last Menstrual Period: FEBRUARY 20 2017 Other Pertinent Past Medical History: PANCREATITIS, PTSD CCE ANX, Drug abuser - Surgical History General Surgical History: Reports: Cholecystectomy - Family History Family History: Reports: Unknown - Social History Smoking Status: Current every day smoker Smoking Cessation Counseling Time: > 3 min - 10 min Hx Substance Use: Yes (occ THC (last time around 1200)) Alcohol Screening: Occasionally - Immunizations Tetanus Shot up to Date: Yes Physical Exam - Physical Exam Appearance: Ill-appearing, Thin Ill-appearing: Mild Eyes: ALONZO, EOMI, Conjunctiva clear ENT: Ears normal, Nose normal, Oropharynx normal Respiratory: Airway patent, Breath sounds clear, Breath sounds equal, Respirations nonlabored Cardiovascular: RRR, Pulses normal, No rub, No murmur GI/: Soft, Nontender, No masses, Bowel sounds normal, No Organomegaly Musculoskeletal: Normal strength, ROM intact, No edema, No calf tenderness Skin: Warm, Dry, Normal color Neurological: Sensation intact, Motor intact, Reflexes intact, Cranial nerves intact, Alert, Oriented Psychiatric: Affect appropriate, Mood appropriate Critical Care Note - Critical Care Note Total Time (mins): 0 Course - Course Hematology/Chemistry: 03/09/17 22:20 03/09/17 22:20 Orders, Labs, Meds: Lab Review 03/09/17 22:20 WBC 12.42 H RBC 4.45 Hgb 14.1 Hct 39.7 MCV 89.2 MCH 31.7 H MCHC 35.5 H RDW Coeff of Giovani 13.1 Plt Count 279 Immature Gran % (Auto) 0.3 Neut % (Auto) 89.2 Lymph % (Auto) 6.8 L [place] % (Auto) 3.4 Eos % (Auto) 0.0 Baso % (Auto) 0.3 Immature Gran # (Auto) 0.0 Neut # 11.1 H Lymph # 0.9 [place] # 0.4 Eos # 0.0 Baso # 0.0 Sodium 142 Potassium 3.6 Chloride 102 Carbon Dioxide 23 Anion Gap 20.6 BUN 16 Creatinine 0.89 Estimated GFR (MDRD) 80.00 BUN/Creatinine Ratio 17.97 Glucose 136 H Calcium 10.4 H Total Bilirubin 0.62 AST 19 ALT 21 Alkaline Phosphatase 81 Total Protein 7.9 Albumin 4.4 Globulin 3.5 Albumin/Globulin Ratio 1.26 Amylase 97 D Lipase 14 Orders Category Date Time Status ED IV/MEDIPORT/POWERPORT .ONCE EMERGENCY 03/09/17 22:12 Active AMYLASE Stat LAB 03/09/17 22:20 Completed CBC W/ AUTO DIFF Stat LAB 03/09/17 22:20 Completed COMPREHENSIVE METABOLIC PANEL Stat LAB 03/09/17 22:20 Completed LIPASE Stat LAB 03/09/17 22:20 Completed 0.9 % Sodium Chloride [Saline Flush] MEDS 03/09/17 22:12 Ordered 1 syr IVF PRN PRN Lorazepam Inj [Ativan] MEDS 03/09/17 22:12 Discontinued 1 mg IVP ONCE STA Promethazine HCl [Phenergan 25 mg/ml Vial] MEDS 03/09/17 22:36 Discontinued 25 mg .ROUTE .STK-MED ONE Promethazine HCl [Phenergan 25 mg/ml Vial] 12.5 mg MEDS 03/09/17 22:12 Discontinued 0.9 % Sodium Chloride [Sodium Chloride] 50 ml IV ONCE Sodium Chloride 0.9% [Sodium Chloride] 500 ml MEDS 03/09/17 22:12 Discontinued IV BOLUS Medications Generic Name Dose Route Start Last Admin Trade Name Freq PRN Reason Stop Dose Admin Sodium Chloride 1 syr 03/09/17 22:12 03/09/17 22:42 Saline Flush IVF 1 syr PRN PRN Administration To flush IV Discontinued Medications Generic Name Dose Route Start Last Admin Trade Name Freq PRN Reason Stop Dose Admin Promethazine HCl 12.5 mg/ 50.5 mls @ 75 mls/hr 03/09/17 22:12 03/09/17 22:37 Sodium Chloride IV 03/09/17 22:52 75 mls/hr ONCE STA Administration Sodium Chloride 500 mls @ 500 mls/hr 03/09/17 22:12 03/09/17 22:32 Sodium Chloride IV 03/09/17 23:11 500 mls/hr BOLUS STA Administration Lorazepam 1 mg 03/09/17 22:12 03/09/17 22:33 Ativan IVP 03/09/17 22:13 1 mg ONCE STA Administration Vital Signs: Temp Pulse Resp BP Pulse Ox 03/09/17 21:51 98.1 F 86 18 128/72 98 Departure - Departure Time of Disposition: 00:00 Disposition: HOME SELF-CARE Discharge Problem: Gastritis Qualifiers: Gastritis type: unspecified gastritis Chronicity: acute Gastritis bleeding: without bleeding Qualifier Code: (K29.00) Acute gastritis without bleeding Instructions: Gastritis (ED) Condition: Good Pt referred to PMD for follow-up: Yes Additional Instructions: soft diet for 3-4 days keep f/u with PMD Allergies/Adverse Reactions: Allergies No Known Drug Allergies Adverse Reaction (Verified 03/09/17 21:58) Home Medications: Ambulatory Orders Ondansetron HCl [Zofran] 4 mg PO BID #7 tablet 03/09/17 Sulfamethoxazole/Trimethoprim [Bactrim Ds 800/160 mg] 1 tab PO Q12HR #10 tablet 03/09/17 Disposition Discussed With: Patient
[2017-03-09 22:26] LABS: BASOPHILS % (AUTO) 0.3 % (0.0-3.0); HEMATOCRIT 39.7 % (37.0-47.0); HEMOGLOBIN 14.1 g/dl (12.0-16.0); IMMATURE GRANULOCYTE % (AUTO) 0.3 % (0.0-5.0); LYMPHOCYTES # (AUTO) 0.9 K/uL (0.60-3.4); LYMPHOCYTES % (AUTO) 6.8 (10.0-50.0); MEAN CORPUSCULAR HEMOGLOBIN 31.7 pg (27.0-31.0); MEAN CORPUSCULAR HGB CONC 35.5 (31.8-35.4); MEAN CORPUSCULAR VOLUME 89.2 fl (81.0-99.0); MONOCYTES # (AUTO) 0.4 K/uL (0.4-2.0); MONOCYTES % (AUTO) 3.4 (0-10); NEUTROPHILS # (AUTO) 11.1 K/ul (2.0-6.9); NEUTROPHILS % (AUTO) 89.2; PLATELET COUNT 279 10^3/uL (140-440); RED BLOOD COUNT 4.45 10^6/ul (4.20-5.40); WHITE BLOOD COUNT 12.42 K/ul (4.6-10.2)
[2017-03-09] MEDS ORDERED: PHENERGAN 25 MG/ML VIAL ONE (22:36)
[2017-03-09 22:46] LABS: ALBUMIN 4.4 g/dL (3.4-5.0); ALBUMIN/GLOBULIN RATIO 1.26; ANION GAP 20.6; BILIRUBIN,TOTAL 0.62 mg/dL (0.00-1.20); BUN/CREATININE RATIO 17.97; CALCIUM 10.4 mg/dL (8.2-10.2); CREATININE 0.89 mg/dL (0.60-1.30); POTASSIUM 3.6 mmol/L (3.5-5.10); TOTAL PROTEIN 7.9 g/dL (6.4-8.2)
== END 2017-03-10 00:26 | disposition home or self-care (01) ==
LOC: ED 21:51
DX: K29.00 Acute gastritis without bleeding (principal); F17.210 Nicotine dependence, cigarettes, uncomplicated; N39.0 Urinary tract infection, site not specified
CPT/HCPCS: 36415; 80053; 81001; 82150; 83690; 84703; 85025; 87086; 96361; 96365; 96372; 96375; 99283

== ENCOUNTER 2017-10-02 20:27 | Emergency (ER) | payer MEDICAID, OTHER ==
[2017-10-02 20:45] VITALS: BMI 24.0
[2017-10-02] MEDS ORDERED: ATIVAN IM STA (20:58)
[2017-10-02] MEDS ORDERED: PHENERGAN 25 MG/ML VIAL IM STA (20:58)
--- NOTE | 2017-10-02 21:03 | ED.PDOC ---
General ED Provider: Dr. BRENNAN PENA Chief Complaint: Nausea/Vomiting Stated Complaint: Came for the anxiety attack, first one in 6 months,. stopped going to Mental health. Time Seen by Physician: 20:59 Mode of Arrival: Walk-In Information Source: Patient Primary Care Provider: BRENNAN PENA-[facility] Nursing and Triage Documentation Reviewed and Agree: Yes Reviewed sepsis parameters & appropriate labs ordered?: No System Inflammatory Response Syndrome: Not Applicable Sepsis Protocol: For patient's 13 years and over: Temp is 96.8 and below OR 101 and greater Pulse >90 BPM Resp >20/minute Acutely Altered Mental Status Are patient's symptoms suggestive of a new infection, such as: -Pneumonia -Skin, Soft Tissue -Endocarditis -UTI -Bone, Joint Infection -Implantable Device -Acute Abdominal Infection -Wound Infection -Meningitis -Blood Stream Catheter Infection -Unknown Psychological Complaint Exam - Psychiatric Complaint/Exam Symptoms Are: Still present Timing: Constant Episodes Lasting: Hours Initial Severity: Moderate Current Severity: Moderate Character: Present: Anxious Aggravating: Reports: None Associated Signs And Symptoms: Denies: Hostile, Confused, Hallucinating, Paranoid behavior, Sleep disturbance, Appetite change Related History: Denies: Suicidal thoughts, Suicidal plan, Suicidal gestures, Homicidal thoughts, Homicidal plan, Homicidal gestures, Prior attempts Completed Suicide Risk Factors: None Patient Accompanied By: Family Patient In Custody Of Police: No Social Withdrawal Present: No Social Isolation Present: No Prior Suicide Attempt: No Injury From Prior Suicide Attempt: No Related Surgical History: Reports: None Patient Uncooperative For Exam: Yes Mood: Present: Anxious Appearance: Present: Clean Thought Process: Present: Logical Insight: Present: Good Memory: Intact Judgement: Normal Danger To Others: No Differential Diagnoses: Anxiety Review of Systems - Review Of Systems Constitutional: Reports: No symptoms Eyes: Reports: No symptoms Ears, Nose, Mouth, Throat: Reports: No symptoms Respiratory: Reports: No symptoms Cardiac: Reports: No symptoms GI: Reports: No symptoms : Reports: No symptoms Musculoskeletal: Reports: No symptoms Skin: Reports: No symptoms Neurological: Reports: Anxiety Endocrine: Reports: No symptoms Hematologic/Lymphatic: Reports: No symptoms All Other Systems: Reviewed and Negative Past Medical History - Past Medical History Previously Healthy: Yes Endocrine: Reports: None Cardiovascular: Reports: None Respiratory: Reports: None Hematological: Reports: None Gastrointestinal: Reports: Pancreatitis ( hinduism pancreatitis february 2015:: Sheri 06/10/15) Genitourinary: Reports: None Neuro/Psych: Reports: Anxiety, PTSD Musculoskeletal: Reports: None Cancer: Reports: None Last Menstrual Period: NOW Other Pertinent Past Medical History: PANCREATITIS, PTSD CCE ANX, Drug abuser - Surgical History General Surgical History: Reports: Cholecystectomy - Family History Family History: Reports: Unknown - Social History Smoking Status: Current every day smoker, Heavy tobacco smoker Smoking Cessation Counseling Time: > 3 min - 10 min Hx Substance Use: Yes (OCCASIONAL MARIJUANA) Alcohol Screening: Occasionally - Immunizations Tetanus Shot up to Date: Yes Physical Exam - Physical Exam Appearance: Well-appearing, No pain distress, Well-nourished Eyes: ALONZO, EOMI, Conjunctiva clear ENT: Ears normal, Nose normal, Oropharynx normal Respiratory: Airway patent, Breath sounds clear, Breath sounds equal, Respirations nonlabored Cardiovascular: RRR, Pulses normal, No rub, No murmur GI/: Soft, Nontender, No masses, Bowel sounds normal, No Organomegaly Musculoskeletal: Normal strength, ROM intact, No edema, No calf tenderness Skin: Warm, Dry, Normal color Neurological: Sensation intact, Motor intact, Reflexes intact, Cranial nerves intact, Alert, Oriented Psychiatric: Affect appropriate, Mood appropriate Critical Care Note - Critical Care Note Total Time (mins): 20 Course - Course Orders, Labs, Meds: Orders Category Date Time Status Lorazepam Inj [Ativan] MEDS 10/02/17 20:58 Stat 1 mg IM ONCE STA Promethazine HCl [Phenergan 25 mg/ml Vial] MEDS 10/02/17 20:58 Stat 25 mg IM ONCE STA Vital Signs: Temp Pulse Resp BP Pulse Ox 10/02/17 20:34 99.2 F 84 24 145/83 H 99 Departure - Departure Time of Disposition: 21:20 Disposition: HOME SELF-CARE Discharge Problem: MIGNON (generalized anxiety disorder) Instructions: Generalized Anxiety Disorder (ED) Condition: Stable Pt referred to PMD for follow-up: Yes IPMP verified?: No Additional Instructions: Needs f/u with Mental health Allergies/Adverse Reactions: Allergies No Known Drug Allergies Adverse Reaction (Verified 10/02/17 20:37) Home Medications: Ambulatory Orders 1 [No Reported Medications] 10/02/17 Disposition Discussed With: Patient, Family
[2017-10-02 22:20] VITALS: BP 118/68; TEMP 98.6
== END 2017-10-02 22:10 | disposition home or self-care (01) ==
LOC: ED 20:27
DX: F41.1 Generalized anxiety disorder (principal)
CPT/HCPCS: 96372; 99282

== ENCOUNTER 2017-10-15 08:16 | Emergency (ER) ==
[2017-10-15 09:08] VITALS: BP 133/80; TEMP 99; BMI 24.1
[2017-10-15] MEDS ORDERED: LACTATED RINGERS 1,000 ML IV STA (09:33)
--- NOTE | 2017-10-15 09:38 | ED.PDOC ---
General ED Provider: Dr. CHRISS QURESHI Chief Complaint: Behavioral Complaint Stated Complaint: Patient is a 22 year old female with a history of Anxiety who states she used to follow up with Dr Parson but has retired. has not follow up with PCP. states she has had anxiety for the past two days. Uses marijuana occasionally as she thinks it may help. states has been vomiting off and on unable to keep anyting down for the past two days and thinks she is getting dehydrated. Time Seen by Physician: 09:20 Mode of Arrival: Walk-In Information Source: Patient Primary Care Provider: BRENNAN MARKMariely Seen Within Last 72 Hours for Same Complaint By: ED Nursing and Triage Documentation Reviewed and Agree: Yes Reviewed sepsis parameters & appropriate labs ordered?: No System Inflammatory Response Syndrome: Not Applicable Sepsis Protocol: For patient's 13 years and over: Temp is 96.8 and below OR 101 and greater Pulse >90 BPM Resp >20/minute Acutely Altered Mental Status Are patient's symptoms suggestive of a new infection, such as: -Pneumonia -Skin, Soft Tissue -Endocarditis -UTI -Bone, Joint Infection -Implantable Device -Acute Abdominal Infection -Wound Infection -Meningitis -Blood Stream Catheter Infection -Unknown System Inflammatory Response Syndrome: Not Applicable Review of Systems - Review Of Systems Constitutional: Reports: No symptoms Eyes: Reports: No symptoms Ears, Nose, Mouth, Throat: Reports: No symptoms Respiratory: Reports: No symptoms Cardiac: Reports: No symptoms GI: Reports: Nausea, Poor appetite, Vomiting : Reports: No symptoms Musculoskeletal: Reports: No symptoms Skin: Reports: No symptoms Neurological: Reports: Anxiety Endocrine: Reports: No symptoms Hematologic/Lymphatic: Reports: No symptoms All Other Systems: Reviewed and Negative Past Medical History - Past Medical History Previously Healthy: Yes Endocrine: Reports: None Cardiovascular: Reports: None Respiratory: Reports: None Hematological: Reports: None Gastrointestinal: Reports: Pancreatitis ( adventist pancreatitis february 2015:: Sheri 06/10/15) Genitourinary: Reports: None Neuro/Psych: Reports: Anxiety, PTSD Musculoskeletal: Reports: None Cancer: Reports: None Last Menstrual Period: 2weeks ago Other Pertinent Past Medical History: PANCREATITIS, PTSD CCE ANX, Drug abuser - Surgical History General Surgical History: Reports: Cholecystectomy - Family History Family History: Reports: Unknown - Social History Smoking Status: Current every day smoker, Heavy tobacco smoker Hx Substance Use: Yes (occ THC (last time around 1200)) Alcohol Screening: Occasionally Physical Exam - Physical Exam Appearance: Ill-appearing Ill-appearing: Mild Pain Distress: Mild Neck: Supple Respiratory: Airway patent, Breath sounds clear, Breath sounds equal, Respirations nonlabored Cardiovascular: RRR, Pulses normal, No rub, No murmur GI/: Soft, Nontender, No masses, Bowel sounds normal, No Organomegaly Musculoskeletal: Normal strength, ROM intact, No edema, No calf tenderness Skin: Warm, Dry, Normal color Neurological: Sensation intact, Motor intact, Reflexes intact, Cranial nerves intact, Alert, Oriented Psychiatric: Anxious Re-Evaluation - Re-Evaluation Time of Re-Evaluation: 11:40 Status: Improved Critical Care Note - Critical Care Note Total Time (mins): 0 Course - Course Hematology/Chemistry: 10/15/17 09:40 10/15/17 09:40 Orders, Labs, Meds: Lab Review 10/15/17 10/15/17 10/15/17 09:40 09:40 09:40 WBC 18.56 H RBC 4.68 Hgb 15.3 Hct 41.8 MCV 89.3 MCH 32.7 H MCHC 36.6 H RDW Coeff of Giovani 11.9 Plt Count 294 Immature Gran % (Auto) 0.5 Neut % (Auto) 87.1 Lymph % (Auto) 6.5 L [place] % (Auto) 5.6 Eos % (Auto) 0.0 Baso % (Auto) 0.3 Immature Gran # (Auto) 0.1 Neut # (Auto) 16.2 H Lymph # (Auto) 1.2 [place] # (Auto) 1.0 Eos # (Auto) 0.0 Baso # (Auto) 0.1 Sodium 140 Potassium 3.3 L Chloride 101 Carbon Dioxide 24 Anion Gap 18.3 BUN 18 Creatinine 0.60 Estimated GFR (MDRD) 125.00 BUN/Creatinine Ratio 30.00 Glucose 130 H Calcium 10.1 Total Bilirubin 0.5 AST 20 ALT 19 Alkaline Phosphatase 85 Total Protein 7.5 Albumin 4.9 Globulin 2.6 Albumin/Globulin Ratio 1.88 Amylase 129 H Lipase 20 Serum , Qual Negative Urine Color Urine Clarity Urine pH Ur Specific [place] Urine Protein Urine Glucose (UA) Urine Ketones Urine Blood Urine Nitrite Urine Bilirubin Urine Urobilinogen Ur Leukocyte Esterase Urine Microscopic RBC Urine Microscopic WBC Ur Squamous Epith Cells Amorphous Sediment Urine Bacteria Urine Mucus 10/15/17 10:00 WBC RBC Hgb Hct MCV MCH MCHC RDW Coeff of Giovani Plt Count Immature Gran % (Auto) Neut % (Auto) Lymph % (Auto) [place] % (Auto) Eos % (Auto) Baso % (Auto) Immature Gran # (Auto) Neut # (Auto) Lymph # (Auto) [place] # (Auto) Eos # (Auto) Baso # (Auto) Sodium Potassium Chloride Carbon Dioxide Anion Gap BUN Creatinine Estimated GFR (MDRD) BUN/Creatinine Ratio Glucose Calcium Total Bilirubin AST ALT Alkaline Phosphatase Total Protein Albumin Globulin Albumin/Globulin Ratio Amylase Lipase Serum , Qual Urine Color [place] Urine Clarity Cloudy Urine pH 8.5 Ur Specific [place] 1.020 Urine Protein 2+ Urine Glucose (UA) Negative Urine Ketones 4+ Urine Blood Trace-intact Urine Nitrite Negative Urine Bilirubin 1+ Urine Urobilinogen 0.2 Ur Leukocyte Esterase Negative Urine Microscopic RBC 2-5 Urine Microscopic WBC 0-2 Ur Squamous Epith Cells 10-20 Amorphous Sediment Trace Urine Bacteria Trace Urine Mucus 3+ Orders Category Date Time Status AMYLASE Stat LAB 10/15/17 09:40 Completed CBC W/ AUTO DIFF Stat LAB 10/15/17 09:40 Completed COMPREHENSIVE METABOLIC PANEL Stat LAB 10/15/17 09:40 Completed LIPASE Stat LAB 10/15/17 09:40 Completed SERUM Stat LAB 10/15/17 09:40 Completed URINALYSIS C & S IF INDICATED Stat LAB 10/15/17 10:00 Completed Dicyclomine Inj [Bentyl] MEDS 10/15/17 10:49 Discontinued 20 mg IM ONCE STA Lorazepam [Ativan] MEDS 10/15/17 11:05 Discontinued 1 mg IVP ONCE STA Ringers Lactated Solution [Lactated Ringers] 1,000 ml MEDS 10/15/17 09:33 Discontinued IV BOLUS Medications Discontinued Medications Generic Name Dose Route Start Last Admin Trade Name Freq PRN Reason Stop Dose Admin Dicyclomine HCl 20 mg 10/15/17 10:49 10/15/17 11:17 Bentyl IM 10/15/17 10:50 20 mg ONCE STA Administration Lactated Ringer's 1,000 mls @ 1,000 mls/hr 10/15/17 09:33 10/15/17 10:00 Lactated Ringers IV 10/15/17 10:32 1,000 mls/hr BOLUS STA Administration Lorazepam 1 mg 10/15/17 11:05 10/15/17 11:14 Ativan IVP 10/15/17 11:06 1 mg ONCE STA Administration Vital Signs: Temp Pulse Resp BP Pulse Ox 10/15/17 09:05 99 F 80 16 133/80 98 Departure - Departure Time of Disposition: 11:37 Disposition: HOME SELF-CARE Discharge Problem: Acute anxiety, Cannabis-induced anxiety disorder Nausea & vomiting Qualifiers: Vomiting type: unspecified Vomiting Intractability: unspecified Qualified Code( s): R11.2 - Nausea with vomiting, unspecified Instructions: Anxiety (ED) Condition: Stable Pt referred to PMD for follow-up: Yes IPMP verified?: No Additional Instructions: Stop use of Marijuana as it my cause anxiety and Nausea with vomiting. Follow up with PCP in 3-5 days Prescriptions: Dicyclomine HCl [Bentyl] 10 mg PO TID PRN #20 capsule PRN Reason: Abdominal Pain Hydroxyzine HCl [Atarax] 25 mg PO TID PRN #30 tablet PRN Reason: Anxiety Ondansetron HCl [Zofran Tab] 4 mg PO Q8H PRN #14 tablet PRN Reason: Nausea / Vomiting Allergies/Adverse Reactions: Allergies No Known Drug Allergies Adverse Reaction (Verified 10/15/17 09:09) Home Medications: Ambulatory Orders Dicyclomine HCl [Bentyl] 10 mg PO TID PRN #20 capsule 10/15/17 Hydroxyzine HCl [Atarax] 25 mg PO TID PRN #30 tablet 10/15/17 Ondansetron HCl [Zofran Tab] 4 mg PO Q8H PRN #14 tablet 10/15/17 Disposition Discussed With: Patient, Family
[2017-10-15] MEDS ORDERED: BENTYL IM STA (10:49)
[2017-10-15] MEDS ORDERED: ATIVAN IVP STA (11:05)
== END 2017-10-15 12:05 | disposition home or self-care (01) ==
LOC: ED 08:16
DX: F41.9 Anxiety disorder, unspecified (principal); F12.180 Cannabis abuse with cannabis-induced anxiety disorder; R11.2 Nausea with vomiting, unspecified; F17.210 Nicotine dependence, cigarettes, uncomplicated
CPT/HCPCS: 36415; 80053; 81001; 82150; 83690; 84703; 85025; 96361; 96372; 96374; 99283

== ENCOUNTER 2017-11-10 16:26 | Outpatient (CLI) ==
[2017-11-10 16:44] VITALS: BMI 25.4
== END 2017-11-10 16:27 | disposition critical access hospital (66) ==
LOC: AMBL 16:26
PROVIDERS: ATTEND Emergency Medicine
DX: R07.89 Other chest pain (principal); F41.9 Anxiety disorder, unspecified

== ENCOUNTER 2017-11-10 16:36 | Emergency (ER) ==
[2017-11-10 16:44] VITALS: TEMP 98.3; BMI 25.4
[2017-11-10] MEDS ORDERED: ATIVAN IVP STA ×4 (16:52→21:13)
[2017-11-10] MEDS ORDERED: SODIUM CHLORIDE 1,000 ML IV STA (16:52)
--- NOTE | 2017-11-10 16:54 | ED.PDOC ---
General ED Provider: Dr. ACACIA CORREA Chief Complaint: Behavioral Complaint Stated Complaint: Severe anxiety; Hyperventilation. Has not taken any meds and does not take prophylaxis meds. Was a work today and psychologically decompensated. Works at [employer] in [employer] where she was working. Hx chronic anxiety and apparently refuses to take meds routinely. Denies know precipitating factors -just life stressors /dealing with in the past/ Time Seen by Physician: 16:40 Mode of Arrival: Ambulance Information Source: Patient, EMT Exam Limitations: No limitations Primary [facility] Nursing and Triage Documentation Reviewed and Agree: Yes Reviewed sepsis parameters & appropriate labs ordered?: Yes System Inflammatory Response Syndrome: Not Applicable Sepsis Protocol: For patient's 13 years and over: Temp is 96.8 and below OR 101 and greater Pulse >90 BPM Resp >20/minute Acutely Altered Mental Status Are patient's symptoms suggestive of a new infection, such as: -Pneumonia -Skin, Soft Tissue -Endocarditis -UTI -Bone, Joint Infection -Implantable Device -Acute Abdominal Infection -Wound Infection -Meningitis -Blood Stream Catheter Infection -Unknown System Inflammatory Response Syndrome: Not Applicable Psychological Complaint Exam - Psychiatric Complaint/Exam Patient Complains Of: Present: Depression, Other (anxiety) Symptoms Are: Still present Timing: Constant Initial Severity: Moderate Current Severity: Moderate Character: Present: Fearful, Anxious Aggravating: Reports: Recent stress Associated Signs And Symptoms: Denies: Hostile, Confused, Hallucinating, Paranoid behavior, Sleep disturbance, Appetite change Related History: Denies: Suicidal thoughts, Suicidal plan, Homicidal plan, Homicidal gestures Completed Suicide Risk Factors: None Patient In Custody Of Police: No Social Withdrawal Present: No Social Isolation Present: No Related Surgical History: Reports: None Patient Uncooperative For Exam: No Mood: Present: Anxious Appearance: Present: Clean Thought Process: Present: Logical Insight: Present: Poor Memory: Intact Judgement: Normal Danger To Others: No Differential Diagnoses: Anxiety Review of Systems - Review Of Systems Constitutional: Reports: Malaise, Weakness, Loss of appetite Eyes: Reports: No symptoms Ears, Nose, Mouth, Throat: Reports: No symptoms Respiratory: Reports: No symptoms Cardiac: Reports: No symptoms GI: Reports: Difficulty swallowing, Nausea, Poor appetite, Poor fluid intake, Vomiting : Reports: No symptoms Musculoskeletal: Reports: No symptoms Skin: Reports: No symptoms Neurological: Reports: Anxiety, Emotional problems, Weakness, Other (PTSD). Denies: Cognitive dysfunction, Headache, [place] seizures, Tingling, Tonic- Clonic seizures, Unable to move lower ext, Unable to move upper ext Endocrine: Reports: No symptoms Hematologic/Lymphatic: Reports: No symptoms All Other Systems: Reviewed and Negative Past Medical History - Past Medical History Previously Healthy: Yes Endocrine: Reports: None Cardiovascular: Reports: None Respiratory: Reports: None Hematological: Reports: None Gastrointestinal: Reports: Pancreatitis ( taoism pancreatitis february 2015:: Sheri 06/10/15) Genitourinary: Reports: None Neuro/Psych: Reports: Anxiety, PTSD Musculoskeletal: Reports: None Cancer: Reports: None Last Menstrual Period: last week Other Pertinent Past Medical History: PANCREATITIS, PTSD CCE ANX, Drug abuser - Surgical History General Surgical History: Reports: Cholecystectomy - Family History Family History: Reports: Unknown - Social History Smoking Status: Current every day smoker, Heavy tobacco smoker Hx Substance Use: Yes (occ THC) Alcohol Screening: Occasionally Lives: With family Physical Exam - Physical Exam Appearance: Ill-appearing Ill-appearing: Moderate Pain Distress: Moderate Eyes: ALONZO, EOMI, Conjunctiva clear ENT: Ears normal, Nose normal, Oropharynx normal Neck: Supple Respiratory: Airway patent, Breath sounds clear, Breath sounds equal, Respirations nonlabored Cardiovascular: RRR, Pulses normal, No rub, No murmur GI/: Soft, Tender Musculoskeletal: Normal strength, ROM intact, No edema, No calf tenderness Skin: Warm, Dry, Normal color Neurological: Sensation intact, Motor intact, Reflexes intact, Cranial nerves intact, Alert, Oriented Psychiatric: Anxious, Depressed Re-Evaluation - Re-Evaluation Time of Re-Evaluation: 19:15 Status: Unchanged Vital Signs Stable: Yes Appearance: Other (appears ill, having nausea and vomiting) Lungs: Clear Skin: Warm and Dry Neuro: Alert and Oriented X3 CV: RRR Physician Notification - Case Discussed Physician Notified: Dr Schroeder-[id number] hrs-agrees to assume management in ER through discharge Time of Notification: 19:30 (Discussed case-is familiar) Critical Care Note - Critical Care Note Total Time (mins): 60 (monitoring mental status and control of anxiety , N-V with meds) Course - Course Hematology/Chemistry: 11/10/17 17:24 11/10/17 17:24 Orders, Labs, Meds: Lab Review 11/10/17 11/10/17 11/11/17 17:24 17:24 Unknown WBC 16.05 H RBC 4.51 Hgb 14.3 Hct 40.7 MCV 90.2 MCH 31.7 H MCHC 35.1 RDW Coeff of Giovani 11.9 Plt Count 254 Immature Gran % (Auto) 0.2 Neut % (Auto) 80.7 Lymph % (Auto) 12.4 Major % (Auto) 6.2 Eos % (Auto) 0.1 Baso % (Auto) 0.4 Immature Gran # (Auto) 0.0 Neut # (Auto) 13.0 H Lymph # (Auto) 2.0 Major # (Auto) 1.0 Eos # (Auto) 0.0 Baso # (Auto) 0.1 Sodium 140 Potassium 3.6 Chloride 106 Carbon Dioxide 21 Anion Gap 16.6 BUN 9 Creatinine 0.85 Estimated GFR (MDRD) 84.00 BUN/Creatinine Ratio 10.58 Glucose 101 Calcium 10.6 H Total Bilirubin 0.4 AST 14 L ALT 18 Alkaline Phosphatase 60 Total Protein 7.7 Albumin 4.3 Globulin 3.4 Albumin/Globulin Ratio 1.26 Amylase 122 H Lipase 21 Serum , Qual Negative Orders Category Date Time Status IV [ED IV/MEDIPORT/POWERPORT] .ONCE EMERGENCY 11/10/17 16:51 Active AMYLASE Stat LAB 11/10/17 17:24 Completed CBC W/ AUTO DIFF Stat LAB 11/10/17 17:24 Completed CMP [COMPREHENSIVE METABOLIC PANEL] Stat LAB 11/10/17 17:24 Completed LIPASE Stat LAB 11/10/17 17:24 Completed SERUM Stat LAB 11/11/17 Completed 0.9 % Sodium Chloride [Saline Flush] MEDS 11/10/17 16:52 Discontinued 1 syr IVF PRN PRN Diphenhydramine Inj [Benadryl] MEDS 11/10/17 22:14 Discontinued 12.5 mg IVP ONCE STA Famotidine Inj [Pepcid] MEDS 11/10/17 18:34 Discontinued 20 mg IVP ONCE STA Hydroxyzine HCl [Vistaril Inj] MEDS 11/11/17 00:25 Discontinued 50 mg IM ONCE STA Lorazepam [Ativan] MEDS 11/10/17 18:24 Discontinued 0.5 mg IVP ONCE STA Lorazepam [Ativan] MEDS 11/10/17 19:02 Discontinued 1 mg IVP ONCE STA Lorazepam [Ativan] MEDS 11/10/17 21:13 Discontinued 1 mg IVP ONCE STA Morphine Sulfate [Morphine 4 mg/ml Syringe] MEDS 11/10/17 23:13 Discontinued 2 mg IVP ONCE STA Ondansetron HCl/Pf [Zofran 4 mg/2 ml] MEDS 11/10/17 18:33 Discontinued 4 mg IVP ONCE STA Promethazine HCl [Phenergan 25 mg/ml Vial] MEDS 11/10/17 19:16 Discontinued 25 mg .ROUTE .STK-MED ONE Promethazine HCl [Phenergan 25 mg/ml Vial] MEDS 11/10/17 22:15 Discontinued 25 mg .ROUTE .STK-MED ONE Promethazine HCl [Phenergan 25 mg/ml Vial] 12.5 mg MEDS 11/10/17 22:11 Discontinued 0.9 % Sodium Chloride [Sodium Chloride] 50 ml IV ONCE Promethazine HCl [Phenergan 25 mg/ml Vial] 25 mg MEDS 11/10/17 19:02 Discontinued 0.9 % Sodium Chloride [Sodium Chloride] 50 ml IV ONCE Sodium Chloride 0.9% [Sodium Chloride] 1,000 ml MEDS 11/10/17 16:52 Discontinued IV BOLUS Medications Discontinued Medications Generic Name Dose Route Start Last Admin Trade Name Freq PRN Reason Stop Dose Admin Diphenhydramine HCl 12.5 mg 11/10/17 22:14 11/10/17 22:17 Benadryl IVP 11/10/17 22:15 12.5 mg ONCE STA Administration Famotidine 20 mg 11/10/17 18:34 11/10/17 18:45 Pepcid IVP 11/10/17 18:35 20 mg ONCE STA Administration Hydroxyzine HCl 50 mg 11/11/17 00:25 11/11/17 00:30 Vistaril Inj IM 11/11/17 00:26 50 mg ONCE STA Administration Sodium Chloride 1,000 mls @ 500 mls/hr 11/10/17 16:52 11/10/17 18:25 Sodium Chloride IV 11/10/17 18:51 500 mls/hr BOLUS STA Administration Promethazine HCl 25 mg/ Sodium 51 mls @ 75 mls/hr 11/10/17 19:02 11/10/17 19: 22 Chloride IV 11/10/17 19:42 75 mls/hr ONCE STA Administration Promethazine HCl 12.5 mg/ 50.5 mls @ 75 mls/hr 11/10/17 22:11 11/10/17 22:21 Sodium Chloride IV 11/10/17 22:51 75 mls/hr ONCE STA Administration Lorazepam 0.5 mg 11/10/17 18:24 11/10/17 18:33 Ativan IVP 11/10/17 18:25 0.5 mg ONCE STA Administration Lorazepam 1 mg 11/10/17 19:02 11/10/17 19:18 Ativan IVP 11/10/17 19:03 1 mg ONCE STA Administration Lorazepam 1 mg 11/10/17 21:13 11/10/17 21:20 Ativan IVP 11/10/17 21:14 1 mg ONCE STA Administration Morphine Sulfate 2 mg 11/10/17 23:13 11/10/17 23:17 Morphine 4 Mg/Ml Syringe IVP 11/10/17 23:14 2 mg ONCE STA Administration Ondansetron HCl 4 mg 11/10/17 18:33 11/10/17 18:42 Zofran 4 Mg/2 Ml IVP 11/10/17 18:34 4 mg ONCE STA Administration Sodium Chloride 1 syr 11/10/17 16:52 11/10/17 23:20 Saline Flush IVF 1 syr PRN PRN Administration To flush IV Vital Signs: Temp Pulse Resp BP Pulse Ox 11/10/17 17:00 142/96 H 11/10/17 16:45 57 L 113/60 98 11/10/17 16:37 98.3 F 72 20 131/54 L 98 Departure - Departure Time of Disposition: 19:35 Disposition: HOME SELF-CARE Discharge Problem: Acute anxiety, Vomiting, Chronic pancreatitis Instructions: Mood Disorders (ED), Acute Nausea and Vomiting (ED), Anxiety (ED) Condition: Good Pt referred to PMD for follow-up: Yes (PCP) IPMP verified?: No Additional Instructions: FOLLOW UP WITH YOUR PRIMARY CARE PHYSICIAN IN 1-3 DAYS REST DRINK PLENTY OF FLUIDS Allergies/Adverse Reactions: Allergies No Known Drug Allergies Adverse Reaction (Verified 11/10/17 16:46) Home Medications: Ambulatory Orders 1 [No Reported Medications] 11/10/17 Disposition Discussed With: Patient
[2017-11-10] MEDS ORDERED: ZOFRAN 4 MG/2 ML IVP STA (18:33)
[2017-11-10] MEDS ORDERED: PEPCID IVP STA (18:34)
[2017-11-10] MEDS ORDERED: PHENERGAN 25 MG/ML VIAL 25 MG in SODIUM CHLORIDE 50 ML IV STA (19:02)
[2017-11-10] MEDS ORDERED: PHENERGAN 25 MG/ML VIAL ONE ×2 (19:16→22:15)
[2017-11-10] MEDS ORDERED: PHENERGAN 25 MG/ML VIAL 12.5 MG in SODIUM CHLORIDE 50 ML IV STA (22:11)
[2017-11-10] MEDS ORDERED: BENADRYL IVP STA (22:14)
[2017-11-10] MEDS ORDERED: MORPHINE 4 MG/ML SYRINGE IVP STA (23:13)
[2017-11-11] MEDS ORDERED: VISTARIL INJ IM STA (00:25)
[2017-11-11 01:15] VITALS: BP 142/96
== END 2017-11-11 01:07 | disposition home or self-care (01) ==
LOC: ED 16:36
DX: F41.9 Anxiety disorder, unspecified (principal); R11.2 Nausea with vomiting, unspecified; K86.1 Other chronic pancreatitis; Z91.14 Patient's other noncompliance with medication regimen; F17.210 Nicotine dependence, cigarettes, uncomplicated
CPT/HCPCS: 36415; 80053; 82150; 83690; 84703; 85025; 96361; 96365; 96366; 96372; 96375; 96376; 99283

== ENCOUNTER 2017-11-11 02:30 | Outpatient (CLI) ==
[2017-11-10 16:44] VITALS: BMI 25.4
== END 2017-11-11 02:31 | disposition left against medical advice (07) ==
LOC: AMBL 02:30
PROVIDERS: ATTEND Family Medicine
DX: R55 Syncope and collapse (principal); M25.561 Pain in right knee; V49.9XXA Car occupant (driver) (passenger) injured in unspecified traffic accident, initial encounter

== ENCOUNTER 2017-12-16 12:27 | Emergency (ER) ==
[2017-12-16 12:44] VITALS: BP 116/69; TEMP 98.4; BMI 22.2
--- NOTE | 2017-12-16 13:11 | ED.PDOC ---
General ED Provider: Dr. ACACIA LIZARRAGA MD Chief Complaint: Behavioral Complaint Stated Complaint: Anxiety, chronic Time Seen by Physician: 12:55 Mode of Arrival: Walk-In Information Source: Patient, Family Exam Limitations: No limitations Primary Care Provider: BRENNAN MOSES Referred to ED by: Other Nursing and Triage Documentation Reviewed and Agree: Yes Reviewed sepsis parameters & appropriate labs ordered?: No Does patient meet sepsis criteria?: No If yes, has appropriate treatment been initiated?: No System Inflammatory Response Syndrome: Not Applicable Sepsis Protocol: For patient's 13 years and over: Temp is 96.8 and below OR 101 and greater Pulse >90 BPM Resp >20/minute Acutely Altered Mental Status Are patient's symptoms suggestive of a new infection, such as: -Pneumonia -Skin, Soft Tissue -Endocarditis -UTI -Bone, Joint Infection -Implantable Device -Acute Abdominal Infection -Wound Infection -Meningitis -Blood Stream Catheter Infection -Unknown Psychological Complaint Exam - Psychiatric Complaint/Exam Patient Complains Of: Present: Other (anxiety) Symptoms Are: Still present Timing: Constant Episodes Lasting: Hours Initial Severity: Mild Current Severity: Moderate Character: Present: Anxious Aggravating: Reports: None Completed Suicide Risk Factors: None Patient Accompanied By: Family Patient In Custody Of Police: No Social Withdrawal Present: No Social Isolation Present: No Prior Suicide Attempt: No Injury From Prior Suicide Attempt: No Related Surgical History: Reports: None Mood: Present: Anxious Appearance: Present: Clean Thought Process: Present: Logical Insight: Present: Good Memory: Intact Judgement: Normal Danger To Others: No Differential Diagnoses: Anxiety, Acute Psychosis Review of Systems - Review Of Systems Constitutional: Reports: Loss of appetite Eyes: Reports: No symptoms Ears, Nose, Mouth, Throat: Reports: No symptoms Respiratory: Reports: No symptoms Cardiac: Reports: No symptoms, Palpitations GI: Reports: Diarrhea : Reports: No symptoms Musculoskeletal: Reports: No symptoms Skin: Reports: No symptoms Neurological: Reports: No symptoms Endocrine: Reports: No symptoms Hematologic/Lymphatic: Reports: No symptoms All Other Systems: Reviewed and Negative Past Medical History - Past Medical History Previously Healthy: Yes Endocrine: Reports: None Cardiovascular: Reports: None Respiratory: Reports: None Hematological: Reports: None Gastrointestinal: Reports: Pancreatitis ( anabaptism pancreatitis february 2015:: Sheri 06/10/15) Genitourinary: Reports: None Neuro/Psych: Reports: Anxiety, PTSD Musculoskeletal: Reports: None Cancer: Reports: None Last Menstrual Period: 2 weeks Other Pertinent Past Medical History: PANCREATITIS, PTSD CCE ANX, Drug abuser - Surgical History General Surgical History: Reports: Cholecystectomy - Family History Family History: Reports: Unknown - Social History Smoking Status: Current every day smoker, Heavy tobacco smoker Hx Substance Use: Yes (occ THC) Alcohol Screening: Occasionally Physical Exam - Physical Exam Appearance: Ill-appearing, Thin Ill-appearing: Mild Eyes: ALONZO, EOMI, Conjunctiva clear ENT: Ears normal, Nose normal, Oropharynx normal Respiratory: Airway patent, Breath sounds clear, Breath sounds equal, Respirations nonlabored Cardiovascular: RRR, Pulses normal, No rub, No murmur GI/: Soft, Nontender, No masses, Bowel sounds normal, No Organomegaly Musculoskeletal: Normal strength, ROM intact, No edema, No calf tenderness Skin: Warm, Dry, Normal color Neurological: Sensation intact, Motor intact, Reflexes intact, Cranial nerves intact, Alert, Oriented Psychiatric: Anxious Critical Care Note - Critical Care Note Total Time (mins): 0 Course - Course Orders, Labs, Meds: Orders Category Date Time Status Lorazepam [Ativan] MEDS 12/16/17 13:12 Discontinued 2 mg IM ONCE STA Medications Discontinued Medications Generic Name Dose Route Start Last Admin Trade Name Freq PRN Reason Stop Dose Admin Lorazepam 2 mg 12/16/17 13:12 12/16/17 13:44 Ativan IM 12/16/17 13:13 2 mg ONCE STA Administration Vital Signs: Temp Pulse Resp BP Pulse Ox 12/16/17 12:28 98.4 F 83 22 116/69 98 Departure - Departure Time of Disposition: 15:00 Disposition: HOME SELF-CARE Discharge Problem: Anxious mood Instructions: Anxiety (ED) Condition: Stable Pt referred to PMD for follow-up: Yes IPMP verified?: No Additional Instructions: NO WORK TODAY. FOLLOW UP WITH YOUR PRIMARY CARE PHYSICIAN SCHEDULED. Allergies/Adverse Reactions: Allergies No Known Drug Allergies Adverse Reaction (Verified 12/25/17 12:46) Home Medications: Ambulatory Orders Buspirone HCl 7.5 mg PO TID PRN #30 tablet 12/25/17 Ondansetron [Zofran Odt] 4 mg PO Q8H #20 tab.rapdis 12/25/17 Ranitidine HCl [Zantac] 150 mg PO BIDAC #20 tablet 12/25/17 Sucralfate Susp [Carafate] 1 gm PO ACHS #1 bottle 12/25/17
[2017-12-16] MEDS ORDERED: ATIVAN IM STA (13:12)
== END 2017-12-16 15:29 | disposition home or self-care (01) ==
LOC: ED 12:27
DX: F41.9 Anxiety disorder, unspecified (principal); F17.210 Nicotine dependence, cigarettes, uncomplicated
CPT/HCPCS: 96372; 99283

== ENCOUNTER 2017-12-17 11:23 | Outpatient (CLI) ==
[2017-12-16 12:44] VITALS: BMI 22.2
== END 2017-12-17 11:47 | disposition short-term general hospital (02) ==
LOC: AMBL 11:23
PROVIDERS: ATTEND Internal Medicine Geriatric Medicine
DX: F41.0 Panic disorder [episodic paroxysmal anxiety] (principal); R11.2 Nausea with vomiting, unspecified; R06.4 Hyperventilation; R25.2 Cramp and spasm

== ENCOUNTER 2017-12-25 00:43 | Emergency (ER) ==
[2017-12-25 00:50] VITALS: BP 127/83; TEMP 98.9; BMI 21.7
[2017-12-25] MEDS ORDERED: BENTYL PO STA (01:29)
[2017-12-25] MEDS ORDERED: TORADOL IVP STA (01:29)
[2017-12-25] MEDS ORDERED: ATIVAN IVP STA (01:29)
[2017-12-25] MEDS ORDERED: ZOFRAN 4 MG/2 ML IVP STA (01:29)
--- NOTE | 2017-12-25 01:32 | ED.PDOC ---
General ED Provider: Dr. CHRISS QURESHI Chief Complaint: Abdominal Pain Stated Complaint: Patient is a 22 year old who comes to the ER with severe anxiety and abdominal pain for 2 days. States she was at [facility] for the same had a work up that was negative. States she was home for two days then started having similar symtoms. She has an APt with Dr Schroeder next week to see if she can be put on routine medications for anxiety. Time Seen by Physician: 01:32 Mode of Arrival: Walk-In Information Source: Patient, Family Primary Care Provider: BRENNAN PENA-[facility] Nursing and Triage Documentation Reviewed and Agree: Yes Does patient meet sepsis criteria?: No System Inflammatory Response Syndrome: Pulse >90 BPM Sepsis Protocol: For patient's 13 years and over: Temp is 96.8 and below OR 101 and greater Pulse >90 BPM Resp >20/minute Acutely Altered Mental Status Are patient's symptoms suggestive of a new infection, such as: -Pneumonia -Skin, Soft Tissue -Endocarditis -UTI -Bone, Joint Infection -Implantable Device -Acute Abdominal Infection -Wound Infection -Meningitis -Blood Stream Catheter Infection -Unknown Review of Systems - Review Of Systems Constitutional: Reports: No symptoms Eyes: Reports: No symptoms Ears, Nose, Mouth, Throat: Reports: No symptoms Respiratory: Reports: No symptoms Cardiac: Reports: No symptoms GI: Reports: Abdominal pain, Nausea : Reports: No symptoms Musculoskeletal: Reports: No symptoms Skin: Reports: No symptoms Neurological: Reports: Anxiety Endocrine: Reports: No symptoms Hematologic/Lymphatic: Reports: No symptoms All Other Systems: Reviewed and Negative Past Medical History - Past Medical History Previously Healthy: Yes Endocrine: Reports: None Cardiovascular: Reports: None Respiratory: Reports: None Hematological: Reports: None Gastrointestinal: Reports: Pancreatitis ( episcopal pancreatitis february 2015:: Sheri 06/10/15) Genitourinary: Reports: None Neuro/Psych: Reports: Anxiety, PTSD Musculoskeletal: Reports: None Cancer: Reports: None Last Menstrual Period: now Other Pertinent Past Medical History: PANCREATITIS, PTSD CCE ANX, Drug abuser - Surgical History General Surgical History: Reports: Cholecystectomy - Family History Family History: Reports: Unknown - Social History Smoking Status: Current every day smoker, Heavy tobacco smoker Hx Substance Use: Yes (occ marijuana) Alcohol Screening: Occasionally - Immunizations Tetanus Shot up to Date: Yes Physical Exam - Physical Exam Appearance: Ill-appearing, Thin Ill-appearing: Severe Pain Distress: None Eyes: ALONZO, EOMI, Conjunctiva clear Neck: Supple Respiratory: Airway patent, Breath sounds clear, Breath sounds equal, Respirations nonlabored Cardiovascular: Tachycardia GI/: Soft, Tender Musculoskeletal: Normal strength, ROM intact, No edema, No calf tenderness Skin: Warm, Dry, Normal color Neurological: Sensation intact, Motor intact, Reflexes intact, Cranial nerves intact, Alert, Oriented Psychiatric: Anxious Critical Care Note - Critical Care Note Total Time (mins): 0 Comments: CT scan done on 12/17 was noted to have Normal Appendix and no bowel obstruction. pelvis small about of hyperdense fluid is seen in the pelvis likely due to recently raptured cyst. Course - Course Hematology/Chemistry: 12/25/17 01:30 12/25/17 01:30 Orders, Labs, Meds: Lab Review 12/25/17 12/25/17 12/25/17 01:16 01:16 01:30 WBC 13.65 H RBC 5.05 Hgb 15.7 Hct 43.9 MCV 86.9 MCH 31.1 H MCHC 35.8 H RDW Coeff of Giovani 12.3 Plt Count 264 Immature Gran % (Auto) 0.7 Neut % (Auto) 78.3 Lymph % (Auto) 12.7 [place] % (Auto) 7.8 Eos % (Auto) 0.1 Baso % (Auto) 0.4 Immature Gran # (Auto) 0.1 Neut # (Auto) 10.7 H Lymph # (Auto) 1.7 [place] # (Auto) 1.1 Eos # (Auto) 0.0 Baso # (Auto) 0.1 Sodium Potassium Chloride Carbon Dioxide Anion Gap BUN Creatinine Estimated GFR (MDRD) BUN/Creatinine Ratio Glucose Calcium Total Bilirubin AST ALT Alkaline Phosphatase Total Protein Albumin Globulin Albumin/Globulin Ratio Amylase Lipase Urine Color Dark Urine Clarity Slightly Urine pH 6.0 Ur Specific [place] >=1.030 Urine Protein 2+ Urine Glucose (UA) Negative Urine Ketones 2+ Urine Blood 2+ Urine Nitrite Negative Urine Bilirubin 2+ Urine Urobilinogen 0.2 Ur Leukocyte Esterase Negative Urine Microscopic RBC 10-20 Urine Microscopic WBC 2-5 Ur Squamous Epith Cells 2-5 Urine Bacteria Trace Urine Mucus 2+ Urine Test Negative 12/25/17 01:30 WBC RBC Hgb Hct MCV MCH MCHC RDW Coeff of Giovani Plt Count Immature Gran % (Auto) Neut % (Auto) Lymph % (Auto) [place] % (Auto) Eos % (Auto) Baso % (Auto) Immature Gran # (Auto) Neut # (Auto) Lymph # (Auto) [place] # (Auto) Eos # (Auto) Baso # (Auto) Sodium 134 L Potassium 3.7 Chloride 99 Carbon Dioxide 21 Anion Gap 17.7 BUN 18 Creatinine 0.87 Estimated GFR (MDRD) 81.00 BUN/Creatinine Ratio 20.68 Glucose 120 H Calcium 10.6 H Total Bilirubin 0.6 AST 17 ALT 29 Alkaline Phosphatase 68 Total Protein 8.2 Albumin 4.7 Globulin 3.5 Albumin/Globulin Ratio 1.34 Amylase 110 Lipase 66 Urine Color Urine Clarity Urine pH Ur Specific [place] Urine Protein Urine Glucose (UA) Urine Ketones Urine Blood Urine Nitrite Urine Bilirubin Urine Urobilinogen Ur Leukocyte Esterase Urine Microscopic RBC Urine Microscopic WBC Ur Squamous Epith Cells Urine Bacteria Urine Mucus Urine Test Orders Category Date Time Status ED IV/MEDIPORT/POWERPORT .ONCE EMERGENCY 12/25/17 01:12 Active AMYLASE Stat LAB 12/25/17 01:30 Completed CBC W/ AUTO DIFF Stat LAB 12/25/17 01:30 Completed COMPREHENSIVE METABOLIC PANEL Stat LAB 12/25/17 01:30 Completed LIPASE Stat LAB 12/25/17 01:30 Completed TEST URINE [URINE ] Stat LAB 12/25/17 01:16 Completed URINALYSIS C & S IF INDICATED Stat LAB 12/25/17 01:16 Completed 0.9 % Sodium Chloride [Saline Flush] MEDS 12/25/17 01:20 Discontinued 1 syr IVF PRN PRN Dicyclomine HCl [Bentyl] MEDS 12/25/17 01:29 Discontinued 20 mg PO ONCE STA Ketorolac Tromethamine [Toradol] MEDS 12/25/17 01:29 Discontinued 30 mg IVP ONCE STA Lorazepam [Ativan] MEDS 12/25/17 01:29 Discontinued 2 mg IVP ONCE STA Ondansetron HCl/Pf [Zofran 4 mg/2 ml] MEDS 12/25/17 01:29 Discontinued 4 mg IVP ONCE STA Medications Discontinued Medications Generic Name Dose Route Start Last Admin Trade Name Freq PRN Reason Stop Dose Admin Dicyclomine HCl 20 mg 12/25/17 01:29 12/25/17 01:36 Bentyl PO 12/25/17 01:30 20 mg ONCE STA Administration Ketorolac Tromethamine 30 mg 12/25/17 01:29 12/25/17 01:37 Toradol IVP 12/25/17 01:30 30 mg ONCE STA Administration Lorazepam 2 mg 12/25/17 01:29 12/25/17 01:37 Ativan IVP 12/25/17 01:30 2 mg ONCE STA Administration Ondansetron HCl 4 mg 12/25/17 01:29 12/25/17 01:37 Zofran 4 Mg/2 Ml IVP 12/25/17 01:30 4 mg ONCE STA Administration Sodium Chloride 1 syr 12/25/17 01:20 Saline Flush IVF PRN PRN To flush IV Vital Signs: Temp Pulse Resp BP Pulse Ox 12/25/17 00:45 98.9 F 108 H 20 127/83 98 Departure - Departure Time of Disposition: 02:57 Disposition: HOME SELF-CARE Discharge Problem: Abdominal pain, Panic anxiety syndrome Condition: Stable Pt referred to PMD for follow-up: Yes (to see Dr schroeder in 2 days ) IPMP verified?: Yes (Last dose of xanax was last year) Additional Instructions: Keep APt with Dr Schroeder Take Buspar as needed for anxiety Prescriptions: Buspirone HCl 7.5 mg PO TID PRN #30 tablet PRN Reason: Anxiety Allergies/Adverse Reactions: Allergies No Known Drug Allergies Adverse Reaction (Verified 12/25/17 12:46) Home Medications: Ambulatory Orders Buspirone HCl 7.5 mg PO TID PRN #30 tablet 12/25/17 Ondansetron [Zofran Odt] 4 mg PO Q8H #20 tab.rapdis 12/25/17 Ranitidine HCl [Zantac] 150 mg PO BIDAC #20 tablet 12/25/17 Sucralfate Susp [Carafate] 1 gm PO ACHS #1 bottle 12/25/17 Disposition Discussed With: Patient, Family
[2017-12-25] MEDS ORDERED: TESSALON PERLES PO STA (02:13)
== END 2017-12-25 03:18 | disposition home or self-care (01) ==
LOC: ED 00:43
DX: R10.9 Unspecified abdominal pain (principal); F41.0 Panic disorder [episodic paroxysmal anxiety]; F17.210 Nicotine dependence, cigarettes, uncomplicated
CPT/HCPCS: 36415; 80053; 81001; 81025; 82150; 83690; 85025; 96361; 96374; 96375; 99283

== ENCOUNTER 2017-12-25 12:40 | Emergency (ER) ==
[2017-12-25 12:43] VITALS: BP 123/85; TEMP 98.4; BMI 21.6
[2017-12-25] MEDS ORDERED: SODIUM CHLORIDE 1,000 ML IV STA (13:04)
[2017-12-25] MEDS ORDERED: ZOFRAN 4 MG/2 ML IVP STA (13:04)
--- NOTE | 2017-12-25 14:01 | ED.PDOC ---
General ED Provider: Dr. BRENNAN PENA Chief Complaint: Abdominal Pain Stated Complaint: Came for the abdominal pain and nausea, she was seen early in the morning for the same reason, given medications, says she went home slept, and woke up feeling the same, so came for the healp. Time Seen by Physician: 14:01 Mode of Arrival: Walk-In Information Source: Patient Primary Care Provider: BRENNAN PENA[facility] Nursing and Triage Documentation Reviewed and Agree: Yes Does patient meet sepsis criteria?: No If yes, has appropriate treatment been initiated?: No System Inflammatory Response Syndrome: Not Applicable Sepsis Protocol: For patient's 13 years and over: Temp is 96.8 and below OR 101 and greater Pulse >90 BPM Resp >20/minute Acutely Altered Mental Status Are patient's symptoms suggestive of a new infection, such as: -Pneumonia -Skin, Soft Tissue -Endocarditis -UTI -Bone, Joint Infection -Implantable Device -Acute Abdominal Infection -Wound Infection -Meningitis -Blood Stream Catheter Infection -Unknown GI Complaint Exam - Abdominal Pain Complaint/Exam Onset: Gradual Symptoms Are: Still present Timing: Constant Initial Severity: Moderate Current Severity: Moderate Location of Pain: Discrete Character: Reports: Dull, Aching Aggravating: Reports: Movement, Food Alleviating: Reports: None Associated Signs and Symptoms: Reports: Nausea, Vomiting. Denies: Diaphoresis, Fever, Cough, Chest pain, Dizziness, Back pain, Constipation, Blood in stool, Dysuria, Urinary frequency, Decreased urine output, Decreased appetite, Vaginal bleeding, Vaginal discharge, Diarrhea, Sore throat, Decreased activity Related History: Reports: Similar episode (multiple) AAA Risk Factors: Reports: None Cardiac Risk Factors: Reports: None Ectopic Risk Factors: Reports: None Ovarian Torsion Risk Factors: Reports: None Surgical Obstruction Risk Factors: Reports: None Related Surgical History: Reports: None Patient Rh Status: Unknown Abdominal Findings: Present: None Differential Diagnoses: Gastroenteritis Review of Systems - Review Of Systems Constitutional: Reports: No symptoms Eyes: Reports: No symptoms Ears, Nose, Mouth, Throat: Reports: No symptoms Respiratory: Reports: No symptoms Cardiac: Reports: No symptoms GI: Reports: Abdominal pain, Nausea, Vomiting : Reports: No symptoms Musculoskeletal: Reports: No symptoms Skin: Reports: No symptoms Neurological: Reports: No symptoms Endocrine: Reports: No symptoms Hematologic/Lymphatic: Reports: No symptoms All Other Systems: Reviewed and Negative Past Medical History - Past Medical History Previously Healthy: Yes Endocrine: Reports: None Cardiovascular: Reports: None Respiratory: Reports: None Hematological: Reports: None Gastrointestinal: Reports: Pancreatitis ( episcopal pancreatitis february 2015:: Sheri 06/10/15) Genitourinary: Reports: None Neuro/Psych: Reports: Anxiety, PTSD Musculoskeletal: Reports: None Cancer: Reports: None Last Menstrual Period: 3 days ago Other Pertinent Past Medical History: PANCREATITIS, PTSD CCE ANX, Drug abuser - Surgical History General Surgical History: Reports: Cholecystectomy - Family History Family History: Reports: Unknown - Social History Smoking Status: Current every day smoker, Heavy tobacco smoker Smoking Cessation Counseling Time: > 3 min - 10 min Hx Substance Use: Yes (occ marijuana) Alcohol Screening: Occasionally Physical Exam - Physical Exam Appearance: Ill-appearing, Thin Eyes: ALONZO, EOMI, Conjunctiva clear ENT: Ears normal, Nose normal, Oropharynx normal Respiratory: Airway patent, Breath sounds clear, Breath sounds equal, Respirations nonlabored Cardiovascular: RRR, Pulses normal, No rub, No murmur GI/: Soft, Tender Musculoskeletal: Normal strength, ROM intact, No edema, No calf tenderness Skin: Warm, Dry, Normal color Neurological: Sensation intact, Motor intact, Reflexes intact, Cranial nerves intact, Alert, Oriented Psychiatric: Affect appropriate, Mood appropriate Critical Care Note - Critical Care Note Total Time (mins): 30 Course - Course Hematology/Chemistry: 12/25/17 13:15 12/25/17 13:15 Orders, Labs, Meds: Lab Review 12/25/17 12/25/17 13:15 13:15 WBC 17.59 H RBC 4.86 Hgb 15.4 Hct 43.0 MCV 88.5 MCH 31.7 H MCHC 35.8 H RDW Coeff of Giovani 12.3 Plt Count 225 Immature Gran % (Auto) 0.6 Neut % (Auto) 83.3 Lymph % (Auto) 8.6 L [place] % (Auto) 6.8 Eos % (Auto) 0.2 Baso % (Auto) 0.5 Immature Gran # (Auto) 0.1 Neut # (Auto) 14.6 H Lymph # (Auto) 1.5 [place] # (Auto) 1.2 Eos # (Auto) 0.0 Baso # (Auto) 0.1 Sodium 133 L Potassium 3.6 Chloride 97 L Carbon Dioxide 23 Anion Gap 16.6 BUN 23 H Creatinine 0.97 Estimated GFR (MDRD) 72.00 BUN/Creatinine Ratio 23.71 Glucose 119 H Calcium 10.2 Total Bilirubin 0.7 AST 16 ALT 29 Alkaline Phosphatase 64 Total Protein 7.9 Albumin 4.5 Globulin 3.4 Albumin/Globulin Ratio 1.32 Amylase 90 Lipase 40 Orders Category Date Time Status ED IV/MEDIPORT/POWERPORT .ONCE EMERGENCY 12/25/17 13:04 Active AMYLASE Stat LAB 12/25/17 13:15 Completed CBC W/ AUTO DIFF Stat LAB 12/25/17 13:15 Completed COMPREHENSIVE METABOLIC PANEL Stat LAB 12/25/17 13:15 Completed LIPASE Stat LAB 12/25/17 13:15 Completed 0.9 % Sodium Chloride [Saline Flush] MEDS 12/25/17 13:04 Ordered 1 syr IVF PRN PRN Mag-Al Plus//Lidocaine [Gi Cocktail] MEDS 12/25/17 15:10 Discontinued 30 ml PO ONCE STA Ondansetron HCl/Pf [Zofran 4 mg/2 ml] MEDS 12/25/17 13:04 Discontinued 4 mg IVP ONCE STA Sodium Chloride 0.9% [Sodium Chloride] 1,000 ml MEDS 12/25/17 13:[address] ABDOMEN/PELVIS WO CONTRAST Stat RADS 12/25/17 15:16 Ordered Medications Generic Name Dose Route Start Last Admin Trade Name Freq PRN Reason Stop Dose Admin Sodium Chloride 1 syr 12/25/17 13:04 12/25/17 13:38 Saline Flush IVF 1 syr PRN PRN Administration To flush IV Discontinued Medications Generic Name Dose Route Start Last Admin Trade Name Freq PRN Reason Stop Dose Admin Al Hydroxide/Mg Hydroxide 30 ml 12/25/17 15:10 12/25/17 15:28 Gi Cocktail PO 12/25/17 15:11 30 ml ONCE STA Administration Sodium Chloride 1,000 mls @ 1,000 mls/hr 12/25/17 13:04 12/25/17 13:38 Sodium Chloride IV 12/25/17 14:03 1,000 mls/hr BOLUS STA Administration Ondansetron HCl 4 mg 12/25/17 13:04 12/25/17 13:38 Zofran 4 Mg/2 Ml IVP 12/25/17 13:05 4 mg ONCE STA Administration Vital Signs: Temp Pulse Resp BP Pulse Ox 12/25/17 12:41 98.4 F 119 H 16 123/85 99 Departure - Departure Time of Disposition: 15:51 Disposition: HOME SELF-CARE Discharge Problem: Abdominal pain, Panic anxiety syndrome Instructions: Abdominal Pain (ED) Condition: Stable Pt referred to PMD for follow-up: Yes IPMP verified?: No Additional Instructions: Increase Hydration Soft diet f/u with PMD Prescriptions: Ondansetron [Zofran Odt] 4 mg PO Q8H #20 tab.rapdis Ranitidine HCl [Zantac] 150 mg PO BIDAC #20 tablet Sucralfate Susp [Carafate] 1 gm PO ACHS #1 bottle Allergies/Adverse Reactions: Allergies No Known Drug Allergies Adverse Reaction (Verified 12/25/17 12:46) Home Medications: Ambulatory Orders Buspirone HCl 7.5 mg PO TID PRN #30 tablet 12/25/17 Ondansetron [Zofran Odt] 4 mg PO Q8H #20 tab.rapdis 12/25/17 Ranitidine HCl [Zantac] 150 mg PO BIDAC #20 tablet 12/25/17 Sucralfate Susp [Carafate] 1 gm PO ACHS #1 bottle 12/25/17 Disposition Discussed With: Patient
[2017-12-25] MEDS ORDERED: GI COCKTAIL PO STA (15:10)
--- NOTE | 2017-12-25 16:22 | CT ---
EXAM: CT abdomen and pelvis without contrast. HISTORY: Abdominal pain. TECHNIQUE: Multi-slice transaxial helical CT. Coronal and sagittal reformatons were performed. COMPARISON: 03/09/2017. FINDINGS: The heart is normal in size. The lung bases are clear. Evaluation of the solid organs is limited without IV contrast. The gallbladder has been removed. No definite intrahepatic biliary ductal dilation is seen. The spleen is normal in size. No hydronephr osis or renal calculus is seen. The pancreas and the bilateral adrenal glands appear grossly unremar kable within the confines of a noncontrast exam. The bowel is not dilated. The appendix is normal in size and there is no periappendiceal inflammation . Urinary bladder and the uterus appear unremarkable. No pelvic free fluid is seen. Mild thickenin g of the right colon is suggested. Osseous structures appear unremarkable. IMPRESSION: 1. Thickening of the right colon which can be seen with nondistension versus colitis. 2. Normal appendix. 3. No hydronephrosis or bowel obstruction. 4. Previous cholecystectomy.
== END 2017-12-25 17:38 | disposition home or self-care (01) ==
LOC: ED 12:40
DX: R10.9 Unspecified abdominal pain (principal); F41.0 Panic disorder [episodic paroxysmal anxiety]; F17.210 Nicotine dependence, cigarettes, uncomplicated
CPT/HCPCS: 36415; 80053; 82150; 83690; 85025; 96361; 96374; 99283

== ENCOUNTER 2018-02-28 13:05 | Emergency (ER) ==
[2018-02-28 13:12] VITALS: BP 121/77; TEMP 98; BMI 22.2
--- NOTE | 2018-02-28 17:34 | ED.PDOC ---
General ED Provider: Dr. ACACIA CORREA Chief Complaint: Behavioral Complaint Stated Complaint: anxiety. onset this AM. Has been out of her xanax for two days. Worsening anxiety and probable withdrawl symptoms. Develops severe gastroesophageal reflux and repeated emesis. Has been bothered by this for the past 4 days. Her symptoms became worse this am--with chest tightness-nausea with vomiting--hyperventilating at times--states she feels numb all over. She states ativan and phenergan normally helps to reduce her symptoms. Time Seen by Physician: 17:20 Mode of Arrival: Walk-In Information Source: Patient Exam Limitations: No limitations, Clinical condition [facility] Nursing and Triage Documentation Reviewed and Agree: Yes Does patient meet sepsis criteria?: No System Inflammatory Response Syndrome: Not Applicable Sepsis Protocol: For patient's 13 years and over: Temp is 96.8 and below OR 101 and greater Pulse >90 BPM Resp >20/minute Acutely Altered Mental Status Are patient's symptoms suggestive of a new infection, such as: -Pneumonia -Skin, Soft Tissue -Endocarditis -UTI -Bone, Joint Infection -Implantable Device -Acute Abdominal Infection -Wound Infection -Meningitis -Blood Stream Catheter Infection -Unknown Psychological Complaint Exam - Psychiatric Complaint/Exam Patient Complains Of: Present: Other Onset/Duration: Today Symptoms Are: Still present Timing: Constant Initial Severity: Severe Current Severity: Moderate Character: Present: Anxious Aggravating: Reports: Recent stress Associated Signs And Symptoms: Reports: Appetite change Related History: Denies: Suicidal thoughts, Suicidal plan, Suicidal gestures, Homicidal plan, Homicidal gestures Patient Accompanied By: Family Social Withdrawal Present: No Social Isolation Present: No Review of Systems - Review Of Systems Constitutional: Reports: No symptoms Eyes: Reports: No symptoms Ears, Nose, Mouth, Throat: Reports: No symptoms Respiratory: Reports: No symptoms Cardiac: Reports: No symptoms GI: Reports: Abdominal pain, Nausea, Poor appetite, Vomiting : Reports: No symptoms Musculoskeletal: Reports: No symptoms Skin: Reports: No symptoms Neurological: Reports: No symptoms Endocrine: Reports: No symptoms Hematologic/Lymphatic: Reports: No symptoms All Other Systems: Reviewed and Negative Past Medical History - Past Medical History Previously Healthy: Yes Endocrine: Reports: None Cardiovascular: Reports: None Respiratory: Reports: None Hematological: Reports: None Gastrointestinal: Reports: Pancreatitis ( mandaen pancreatitis february 2015:: Sheri Crenshaw/8/15) Genitourinary: Reports: None Neuro/Psych: Reports: Anxiety, PTSD Musculoskeletal: Reports: None Cancer: Reports: None Last Menstrual Period: 1 week ago Other Pertinent Past Medical History: PANCREATITIS, PTSD CCE ANX, Drug abuser - Surgical History General Surgical History: Reports: Cholecystectomy - Family History Family History: Reports: Unknown - Social History Smoking Status: Current every day smoker, Heavy tobacco smoker Hx Substance Use: Yes (occ marijuana) Alcohol Screening: Occasionally Physical Exam - Physical Exam Appearance: Ill-appearing, Thin Ill-appearing: Mild Pain Distress: Moderate Eyes: ALONZO, EOMI, Conjunctiva clear ENT: Ears normal, Nose normal, Oropharynx normal Neck: Supple Respiratory: Airway patent, Breath sounds clear, Breath sounds equal, Respirations nonlabored Cardiovascular: RRR, Pulses normal, No rub, No murmur GI/: Soft, No masses, Bowel sounds normal, No Organomegaly, Tender (mid epigastrium without guarding or rebound tendernesss, BS normal) Musculoskeletal: Normal strength, ROM intact, No edema, No calf tenderness Skin: Warm, Dry, Normal color Neurological: Sensation intact, Motor intact, Reflexes intact, Cranial nerves intact, Alert, Oriented Psychiatric: Anxious, Depressed Re-Evaluation - Re-Evaluation Time of Re-Evaluation: 19:20 Status: Improved Vital Signs Stable: Yes Pain Level: minimal Appearance: NAD Lungs: Clear Skin: Warm and Dry Neuro: Alert and Oriented X3 CV: RRR Critical Care Note - Critical Care Note Total Time (mins): 0 Course - Course Hematology/Chemistry: 02/28/18 17:55 02/28/18 17:55 Orders, Labs, Meds: Lab Review 02/28/18 02/28/18 17:55 17:55 WBC 12.18 H RBC 4.43 Hgb 14.2 Hct 40.4 MCV 91.2 MCH 32.1 H MCHC 35.1 RDW Coeff of Giovani 12.2 Plt Count 241 Immature Gran % (Auto) 0.3 Neut % (Auto) 91.7 Lymph % (Auto) 5.7 L [place] % (Auto) 2.1 Eos % (Auto) 0.0 Baso % (Auto) 0.2 Immature Gran # (Auto) 0.0 Neut # (Auto) 11.2 H Lymph # (Auto) 0.7 [place] # (Auto) 0.3 L Eos # (Auto) 0.0 Baso # (Auto) 0.0 Sodium 141 Potassium 3.7 Chloride 107 Carbon Dioxide 24 Anion Gap 13.7 BUN 9 Creatinine 0.84 Estimated GFR (MDRD) 85.00 BUN/Creatinine Ratio 10.71 Glucose 124 H Calcium 10.0 Total Bilirubin 0.5 AST 14 L ALT 14 Alkaline Phosphatase 66 Total Protein 7.7 Albumin 4.5 Globulin 3.2 Albumin/Globulin Ratio 1.41 Lipase 24 Orders Category Date Time Status EKG-(ED ONLY) Stat CARDIO 02/28/18 15:53 Completed CBC W/ AUTO DIFF Stat LAB 02/28/18 17:55 Completed CMP [COMPREHENSIVE METABOLIC PANEL] Stat LAB 02/28/18 17:55 Completed LIPASE Stat LAB 02/28/18 17:55 Completed Lorazepam [Ativan] MEDS 02/28/18 17:50 Discontinued 1 mg IM ONCE STA Promethazine HCl [Phenergan 25 mg/ml Vial] MEDS 02/28/18 17:53 Discontinued 25 mg IM ONCE STA Medications Discontinued Medications Generic Name Dose Route Start Last Admin Trade Name Freq PRN Reason Stop Dose Admin Lorazepam 1 mg 02/28/18 17:50 02/28/18 18:06 Ativan IM 02/28/18 17:51 1 mg ONCE STA Administration Promethazine HCl 25 mg 02/28/18 17:53 02/28/18 18:05 Phenergan 25 Mg/Ml Vial IM 02/28/18 17:54 25 mg ONCE STA Administration Vital Signs: Temp Pulse Resp BP Pulse Ox 02/28/18 13:06 98 F 86 24 121/77 99 Departure - Departure Time of Disposition: 19:15 Disposition: HOME SELF-CARE Discharge Problem: Anxiety, Benzodiazepine dependence, Acute drug withdrawal syndrome Condition: Fair Pt referred to PMD for follow-up: Yes (1 week) IPMP verified?: Yes (Discrepancy of fill dates ) Additional Instructions: Take meds as directed See PCP later this week Advance diet as tolerated Prescriptions: Lorazepam [Ativan] 1 mg PO TID #15 tablet Promethazine HCl [Phenergan Tab] 25 mg PO Q8H PRN #15 tablet PRN Reason: Nausea / Vomiting Allergies/Adverse Reactions: Allergies No Known Drug Allergies Adverse Reaction (Verified 02/28/18 13:13) Home Medications: Ambulatory Orders Alprazolam [Xanax] 1 mg PO BID 02/28/18 Lorazepam [Ativan] 1 mg PO TID #15 tablet 02/28/18 Promethazine HCl [Phenergan Tab] 25 mg PO Q8H PRN #15 tablet 02/28/18 Disposition Discussed With: Patient, Family
[2018-02-28] MEDS ORDERED: ATIVAN IM STA (17:50)
[2018-02-28] MEDS ORDERED: PHENERGAN 25 MG/ML VIAL IM STA (17:53)
== END 2018-02-28 19:49 | disposition home or self-care (01) ==
LOC: ED 13:05
DX: F41.9 Anxiety disorder, unspecified (principal); F13.239 Sedative, hypnotic or anxiolytic dependence with withdrawal, unspecified; F17.210 Nicotine dependence, cigarettes, uncomplicated
CPT/HCPCS: 36415; 80053; 83690; 85025; 93005; 93010; 96372; 99283

== ENCOUNTER 2018-03-23 20:17 | Emergency (ER) ==
[2018-03-23] MEDS ORDERED: ATIVAN IM STA (20:27)
[2018-03-23] MEDS ORDERED: PHENERGAN 25 MG/ML VIAL IM STA (20:27)
[2018-03-23] MEDS ORDERED: DEMEROL 25 MG/ML VIAL IM STA ×2 (20:27→21:52)
[2018-03-23 20:35] VITALS: BP 128/79; TEMP 97.4; BMI 21.9
--- NOTE | 2018-03-23 21:42 | DI ---
EXAMINATION: Abdomen KUB HISTORY: Vomiting FINDINGS: The abdominal gas pattern is normal. There are surgical clips in the right upper quadrant . No pathologic radio opacities are appreciated. The bones are intact. IMPRESSION: Nonobstructive intestinal gas pattern.
--- NOTE | 2018-03-23 21:42 | DI ---
EXAM: Chest PA and lateral HISTORY: Chest pain FINDINGS: The lungs remain clear since 06/06/2015. The aorta is normal in caliber. The heart size i s normal. The bones are intact. No pneumothorax or pleural effusions are detected. IMPRESSION: No acute cardiopulmonary disease.
[2018-03-23] MEDS ORDERED: ZOFRAN 4 MG/2 ML IM STA (21:51)
[2018-03-23] MEDS ORDERED: BENADRYL IM STA (22:30)
[2018-03-23] MEDS ORDERED: SODIUM CHLORIDE 1,000 ML IV STA (22:40)
--- NOTE | 2018-03-23 22:44 | ED.PDOC ---
General ED Provider: Dr. ACACIA MCCARTHY-ER Chief Complaint: Nausea/Vomiting Stated Complaint: my anxiety is high--im sick at my stomach--i always do this when my anxiety is high Time Seen by Physician: 20:20 Mode of Arrival: Walk-In Information Source: Patient, Family Exam Limitations: No limitations Primary Care Provider: BRENNAN PENA-[facility] Nursing and Triage Documentation Reviewed and Agree: Yes Does patient meet sepsis criteria?: No System Inflammatory Response Syndrome: Not Applicable Sepsis Protocol: For patient's 13 years and over: Temp is 96.8 and below OR 101 and greater Pulse >90 BPM Resp >20/minute Acutely Altered Mental Status Are patient's symptoms suggestive of a new infection, such as: -Pneumonia -Skin, Soft Tissue -Endocarditis -UTI -Bone, Joint Infection -Implantable Device -Acute Abdominal Infection -Wound Infection -Meningitis -Blood Stream Catheter Infection -Unknown GI Complaint Exam - Vomiting/Diarrhea Complaint/Exam Onset/Duration: 3 hrs Symptoms Are: Still present Initial Severity: Mild Current Severity: Moderate Character of Vomiting: Reports: Non-bilious Aggravating: Reports: None Alleviating: Reports: None Associated Signs and Symptoms: Denies: Dizziness, Light-headedness, Melena, Hematemesis, Fever, Abdominal pain, Cramping Review of Systems - Review Of Systems Constitutional: Reports: No symptoms Eyes: Reports: No symptoms Ears, Nose, Mouth, Throat: Reports: No symptoms Respiratory: Reports: No symptoms Cardiac: Reports: No symptoms GI: Reports: Nausea, Vomiting : Reports: No symptoms Musculoskeletal: Reports: No symptoms Skin: Reports: No symptoms Neurological: Reports: No symptoms Endocrine: Reports: No symptoms Hematologic/Lymphatic: Reports: No symptoms All Other Systems: Reviewed and Negative Past Medical History - Past Medical History Previously Healthy: Yes Endocrine: Reports: None Cardiovascular: Reports: None Respiratory: Reports: None Hematological: Reports: None Gastrointestinal: Reports: Pancreatitis ( gnosticism pancreatitis february 2015:: Sheri 06/10/15) Genitourinary: Reports: None Neuro/Psych: Reports: Anxiety, PTSD Musculoskeletal: Reports: None Cancer: Reports: None Last Menstrual Period: less than 1 week Other Pertinent Past Medical History: PANCREATITIS, PTSD CCE ANX, Drug abuser - Surgical History General Surgical History: Reports: Cholecystectomy - Family History Family History: Reports: Unknown - Social History Smoking Status: Current every day smoker, Heavy tobacco smoker Hx Substance Use: No Alcohol Screening: Occasionally - Immunizations Tetanus Shot up to Date: Yes Physical Exam - Physical Exam Appearance: Well-appearing, No pain distress, Well-nourished Eyes: ALONZO, EOMI, Conjunctiva clear ENT: Ears normal, Nose normal, Oropharynx normal Respiratory: Airway patent Cardiovascular: RRR, Pulses normal, No rub, No murmur GI/: Soft, Nontender, No masses, Bowel sounds normal, No Organomegaly Musculoskeletal: Normal strength Skin: Warm, Dry, Normal color Neurological: Sensation intact, Motor intact, Reflexes intact, Cranial nerves intact, Alert, Oriented Psychiatric: Affect appropriate, Anxious Interpretation - Radiology Interpretation Radiology Interpretation By: ED Physician Radiology Results: Negative - EKG Interpretation Time of EKG #1: 22:43 Rate: Normal Rhythm: Sinus Ectopy: None [place]: NL ST Segment: Normal Interpretation: nsr Re-Evaluation - Re-Evaluation Time of Re-Evaluation: 01:26 Status: Improved Vital Signs Stable: Yes Pain Level: 0 Appearance: NAD Lungs: Clear Skin: Warm and Dry Neuro: Alert and Oriented X3 CV: RRR Critical Care Note - Critical Care Note Total Time (mins): 0 Course - Course Hematology/Chemistry: 03/23/18 20:45 03/23/18 20:45 Orders, Labs, Meds: Lab Review 03/23/18 03/23/18 03/23/18 20:45 20:45 20:45 WBC 14.14 H RBC 4.66 Hgb 14.6 Hct 41.6 MCV 89.3 MCH 31.3 H MCHC 35.1 RDW Coeff of Giovani 12.4 Plt Count 265 Immature Gran % (Auto) 0.4 Neut % (Auto) 88.7 Lymph % (Auto) 6.9 L [place] % (Auto) 3.7 Eos % (Auto) 0.0 Baso % (Auto) 0.3 Immature Gran # (Auto) 0.1 Neut # (Auto) 12.6 H Lymph # (Auto) 1.0 [place] # (Auto) 0.5 Eos # (Auto) 0.0 Baso # (Auto) 0.0 ESR 5 Sodium 140.1 Potassium 3.48 L Chloride 105.6 Carbon Dioxide 21.3 L Anion Gap 16.68 BUN 12.6 Creatinine 0.84 Estimated GFR (MDRD) 85.00 BUN/Creatinine Ratio 15.00 Glucose 133.5 H Calcium 10.49 H Total Bilirubin 0.65 AST 27.2 ALT 20.3 Alkaline Phosphatase 78.8 Total Protein 8.26 H Albumin 4.89 Globulin 3.37 Albumin/Globulin Ratio 1.45 Amylase 99.0 Lipase 71.6 Serum , Qual Negative Urine Color Urine Clarity Urine pH Ur Specific [place] Urine Protein Urine Glucose (UA) Urine Ketones Urine Blood Urine Nitrite Urine Bilirubin Urine Urobilinogen Ur Leukocyte Esterase Urine Microscopic RBC Urine Microscopic WBC Ur Squamous Epith Cells Urine Bacteria Urine Mucus Urine Opiates Screen Ur Oxycodone Screen Urine Methadone Screen Ur Propoxyphene Screen Ur Barbiturates Screen U Tricyclic Antidepress Ur Phencyclidine Scrn Ur Amphetamine Screen U Methamphetamines Scrn U Benzodiazepines Scrn Urine Cocaine Screen U Cannabinoids Screen 03/24/18 03/24/18 00:38 00:38 WBC RBC Hgb Hct MCV MCH MCHC RDW Coeff of Giovani Plt Count Immature Gran % (Auto) Neut % (Auto) Lymph % (Auto) [place] % (Auto) Eos % (Auto) Baso % (Auto) Immature Gran # (Auto) Neut # (Auto) Lymph # (Auto) [place] # (Auto) Eos # (Auto) Baso # (Auto) ESR Sodium Potassium Chloride Carbon Dioxide Anion Gap BUN Creatinine Estimated GFR (MDRD) BUN/Creatinine Ratio Glucose Calcium Total Bilirubin AST ALT Alkaline Phosphatase Total Protein Albumin Globulin Albumin/Globulin Ratio Amylase Lipase Serum , Qual Urine Color Yellow Urine Clarity Clear Urine pH 8.5 Ur Specific [place] 1.025 Urine Protein Negative Urine Glucose (UA) Negative Urine Ketones 3+ Urine Blood Trace-intact Urine Nitrite Negative Urine Bilirubin Negative Urine Urobilinogen 0.2 Ur Leukocyte Esterase Negative Urine Microscopic RBC 2-5 Urine Microscopic WBC 0-2 Ur Squamous Epith Cells 2-5 Urine Bacteria 1+ Urine Mucus 2+ Urine Opiates Screen Negative Ur Oxycodone Screen Negative Urine Methadone Screen Negative Ur Propoxyphene Screen Negative Ur Barbiturates Screen Negative U Tricyclic Antidepress Negative Ur Phencyclidine Scrn Negative Ur Amphetamine Screen Negative U Methamphetamines Scrn Negative U Benzodiazepines Scrn Positive Urine Cocaine Screen Negative U Cannabinoids Screen Positive Orders Category Date Time Status EKG-(ED ONLY) Stat CARDIO 03/23/18 20:26 Completed ED IV/MEDIPORT/POWERPORT .ONCE EMERGENCY 03/23/18 22:40 Active AMYLASE Stat LAB 03/23/18 20:45 Completed CBC W/ AUTO DIFF Stat LAB 03/23/18 20:45 Completed COMPREHENSIVE METABOLIC PANEL Stat LAB 03/23/18 20:45 Completed ESR Stat LAB 03/23/18 20:45 Completed LIPASE Stat LAB 03/23/18 20:45 Completed SERUM Stat LAB 03/23/18 20:45 Completed URINALYSIS C & S IF INDICATED Stat LAB 03/24/18 00:38 Completed URINE CULTURE Stat LAB 03/24/18 00:38 Received URINE DRUG SCREEN (RAPID FOR ED) [DRUG SCREEN, URINE, LAB 03/24/18 00:38 Completed RAPID] Stat 0.9 % Sodium Chloride [Saline Flush] MEDS 03/23/18 22:40 Ordered 1 syr IVF PRN PRN Diphenhydramine Inj [Benadryl] MEDS 03/23/18 22:30 Discontinued 50 mg IM ONCE STA Lorazepam [Ativan] MEDS 03/23/18 20:27 Discontinued 2 mg IM ONCE STA Meperidine HCl/Pf [Demerol 25 mg/ml Vial] MEDS 03/23/18 20:27 Discontinued 25 mg IM ONCE STA Meperidine HCl/Pf [Demerol 25 mg/ml Vial] MEDS 03/23/18 21:52 Discontinued 25 mg IM ONCE STA Ondansetron HCl/Pf [Zofran 4 mg/2 ml] MEDS 03/23/18 21:51 Discontinued 8 mg IM ONCE STA Promethazine HCl [Phenergan 25 mg/ml Vial] MEDS 03/23/18 20:27 Discontinued 25 mg IM ONCE STA Sodium Chloride 0.9% [Sodium Chloride] 1,000 ml MEDS 03/23/18 22:40 Discontinued IV BOLUS ABDOMEN 1 VIEW Stat RADS 03/23/18 20:26 Completed CHEST, 2 VIEWS PA & LAT Stat RADS 03/23/18 20:26 Completed Medications Generic Name Dose Route Start Last Admin Trade Name Freq PRN Reason Stop Dose Admin Sodium Chloride 1 syr 03/23/18 22:40 Saline Flush IVF PRN PRN To flush IV Discontinued Medications Generic Name Dose Route Start Last Admin Trade Name Freq PRN Reason Stop Dose Admin Diphenhydramine HCl 50 mg 03/23/18 22:30 03/23/18 22:39 Benadryl IM 03/23/18 22:31 50 mg ONCE STA Administration Sodium Chloride 1,000 mls @ 1,000 mls/hr 03/23/18 22:40 03/23/18 22:58 Sodium Chloride IV 03/23/18 23:39 1,000 mls/hr BOLUS STA Administration Lorazepam 2 mg 03/23/18 20:27 03/23/18 20:35 Ativan IM 03/23/18 20:28 2 mg ONCE STA Administration Meperidine HCl 25 mg 03/23/18 20:27 03/23/18 20:36 Demerol 25 Mg/Ml Vial IM 03/23/18 20:28 25 mg ONCE STA Administration Meperidine HCl 25 mg 03/23/18 21:52 03/23/18 21:58 Demerol 25 Mg/Ml Vial IM 03/23/18 21:53 25 mg ONCE STA Administration Ondansetron HCl 8 mg 03/23/18 21:51 03/23/18 21:58 Zofran 4 Mg/2 Ml IM 03/23/18 21:52 8 mg ONCE STA Administration Promethazine HCl 25 mg 03/23/18 20:27 03/23/18 20:37 Phenergan 25 Mg/Ml Vial IM 03/23/18 20:28 25 mg ONCE STA Administration Vital Signs: Temp Pulse Resp BP Pulse Ox 03/23/18 20:17 97.4 F L 87 20 128/79 99 Departure - Departure Time of Disposition: 01:26 Disposition: HOME SELF-CARE Discharge Problem: Anxiety Instructions: Generalized Anxiety Disorder (ED) Condition: Good Pt referred to PMD for follow-up: No IPMP verified?: No Additional Instructions: f/u mental health Allergies/Adverse Reactions: Allergies No Known Drug Allergies Adverse Reaction (Verified 03/23/18 20:20) Home Medications: Ambulatory Orders Alprazolam [Xanax] 1 mg PO BID 02/28/18 Pantoprazole Sodium [Protonix] 40 mg PO DAILY #30 tablet. 02/28/18 Disposition Discussed With: Patient
== END 2018-03-24 01:30 | disposition home or self-care (01) ==
LOC: ED 20:17
DX: F41.9 Anxiety disorder, unspecified (principal); R11.2 Nausea with vomiting, unspecified; F17.210 Nicotine dependence, cigarettes, uncomplicated
CPT/HCPCS: 36415; 80053; 80306; 81001; 82150; 83690; 84703; 85025; 85651; 87086; 93005; 93010; 96361; 96372; 96374; 99283

== ENCOUNTER 2018-03-28 17:54 | Emergency (ER) ==
[2018-03-28 17:59] VITALS: BP 142/89; TEMP 98; BMI 20.9
[2018-03-28] MEDS: ATIVAN IVP STA (19:10)
[2018-03-28] MEDS: DILAUDID 1 MG/ML SYRINGE IVP STA ×2 (19:11→21:07)
[2018-03-28] MEDS: PHENERGAN 25 MG/ML VIAL 25 MG in SODIUM CHLORIDE 50 ML IV STA (19:12)
[2018-03-28] MEDS: SODIUM CHLORIDE 1,000 ML IV STA (19:12)
[2018-03-28] MEDS: PHENERGAN 25 MG/ML VIAL ONE (19:18)
--- NOTE | 2018-03-28 22:33 | ED.PDOC ---
General ED Provider: Dr. ACACIA MCCARTHY-ER Chief Complaint: Abdominal Pain Stated Complaint: im having a panic attack Time Seen by Physician: 17:55 Mode of Arrival: Walk-In Information Source: Patient Exam Limitations: No limitations [facility] and T[facility] Documentation Reviewed and Agree: Yes Does patient meet sepsis criteria?: No System Inflammatory Response Syndrome: Not Applicable Sepsis Protocol: For patient's 13 years and over: Temp is 96.8 and below OR 101 and greater Pulse >90 BPM Resp >20/minute Acutely Altered Mental Status Are patient's symptoms suggestive of a new infection, such as: -Pneumonia -Skin, Soft Tissue -Endocarditis -UTI -Bone, Joint Infection -Implantable Device -Acute Abdominal Infection -Wound Infection -Meningitis -Blood Stream Catheter Infection -Unknown Psychological Complaint Exam - Psychiatric Complaint/Exam Patient Complains Of: Present: Other (anxiety) Onset/Duration: today Symptoms Are: Still present Timing: Constant Initial Severity: Mild Current Severity: Moderate Character: Present: Fearful, Anxious Aggravating: Reports: None Patient In Custody Of Police: No Social Withdrawal Present: No Social Isolation Present: No Prior Suicide Attempt: No Injury From Prior Suicide Attempt: No Patient Uncooperative For Exam: No Mood: Present: Anxious Appearance: Present: Clean Thought Process: Present: Logical Insight: Present: Good Memory: Intact Danger To Others: No Differential Diagnoses: Anxiety Review of Systems - Review Of Systems Constitutional: Reports: No symptoms Eyes: Reports: No symptoms Ears, Nose, Mouth, Throat: Reports: No symptoms Respiratory: Reports: No symptoms Cardiac: Reports: No symptoms GI: Reports: No symptoms : Reports: No symptoms Musculoskeletal: Reports: No symptoms Skin: Reports: No symptoms Neurological: Reports: Anxiety Endocrine: Reports: No symptoms Hematologic/Lymphatic: Reports: No symptoms All Other Systems: Reviewed and Negative Past Medical History - Past Medical History Previously Healthy: Yes Endocrine: Reports: None Cardiovascular: Reports: None Respiratory: Reports: None Hematological: Reports: None Gastrointestinal: Reports: Pancreatitis ( mu-ism pancreatitis february 2015:: Sheri 06/10/15) Genitourinary: Reports: None Neuro/Psych: Reports: Anxiety, PTSD Musculoskeletal: Reports: None Cancer: Reports: None Last Menstrual Period: 2 weeks prior Other Pertinent Past Medical History: PANCREATITIS, PTSD CCE ANX, Drug abuser - Surgical History General Surgical History: Reports: Cholecystectomy - Family History Family History: Reports: Unknown - Social History Smoking Status: Current every day smoker, Heavy tobacco smoker Hx Substance Use: Yes (occ marijuana) Alcohol Screening: Occasionally - Immunizations Tetanus Shot up to Date: Yes Physical Exam - Physical Exam Appearance: Well-appearing, No pain distress, Well-nourished Eyes: ALONZO, EOMI, Conjunctiva clear ENT: Ears normal, Nose normal, Oropharynx normal Neck: Supple Respiratory: Airway patent Cardiovascular: RRR, Pulses normal, No rub, No murmur GI/: Soft, Nontender, No masses, Bowel sounds normal, No Organomegaly Musculoskeletal: Normal strength, ROM intact, No edema, No calf tenderness Skin: Warm, Dry, Normal color Neurological: Alert, Oriented Psychiatric: Affect appropriate, Mood appropriate, Anxious Interpretation - Radiology Interpretation Radiology Interpretation By: ED Physician Radiology Results: Negative Re-Evaluation - Re-Evaluation Time of Re-Evaluation: 22:34 Status: Improved Vital Signs Stable: Yes Pain Level: 0 Appearance: NAD Lungs: Clear Skin: Warm and Dry Neuro: Alert and Oriented X3 CV: RRR Critical Care Note - Critical Care Note Total Time (mins): 0 Course - Course Hematology/Chemistry: 03/28/18 19:28 03/28/18 19:28 Orders, Labs, Meds: Lab Review 03/28/18 03/28/18 03/28/18 19:28 19:28 19:28 WBC 14.19 H RBC 4.57 Hgb 14.4 Hct 40.5 MCV 88.6 MCH 31.5 H MCHC 35.6 H RDW Coeff of Giovani 12.1 Plt Count 264 Immature Gran % (Auto) 0.5 Neut % (Auto) 90.5 Lymph % (Auto) 5.8 L [place] % (Auto) 3.0 Eos % (Auto) 0.0 Baso % (Auto) 0.2 Immature Gran # (Auto) 0.1 Neut # (Auto) 12.8 H Lymph # (Auto) 0.8 [place] # (Auto) 0.4 Eos # (Auto) 0.0 Baso # (Auto) 0.0 ESR 5 Sodium 137.7 Potassium 3.76 Chloride 104.7 Carbon Dioxide 17.9 L Anion Gap 18.86 BUN 7.0 Creatinine 0.70 Estimated GFR (MDRD) 105.00 BUN/Creatinine Ratio 10.00 Glucose 108.9 H Calcium 10.02 Total Bilirubin 0.39 AST 26.6 ALT 21.6 Alkaline Phosphatase 80.1 Total Protein 8.06 Albumin 5.06 H Globulin 3.00 Albumin/Globulin Ratio 1.68 Amylase 115.4 H Lipase 86.0 Serum , Qual Negative Orders Category Date Time Status IV [ED IV/MEDIPORT/POWERPORT] .ONCE EMERGENCY 03/28/18 18:50 Active AMYLASE Stat LAB 03/28/18 19:28 Completed CBC W/ AUTO DIFF Stat LAB 03/28/18 19:28 Completed COMPREHENSIVE METABOLIC PANEL Stat LAB 03/28/18 19:28 Completed ESR Stat LAB 03/28/18 19:28 Completed LIPASE Stat LAB 03/28/18 19:28 Completed SERUM Stat LAB 03/28/18 19:28 Completed URINALYSIS C & S IF INDICATED Stat LAB 03/28/18 22:02 Ordered 0.9 % Sodium Chloride [Saline Flush] MEDS 03/28/18 18:50 Ordered 1 syr IVF PRN PRN Hydromorphone HCl [Dilaudid 1 mg/ml Syringe] MEDS 03/28/18 18:52 Discontinued 1 mg IVP ONCE STA Hydromorphone HCl [Dilaudid 1 mg/ml Syringe] MEDS 03/28/18 21:03 Discontinued 1 mg IVP ONCE STA Lorazepam [Ativan] MEDS 03/28/18 18:51 Discontinued 2 mg IVP ONCE STA Promethazine HCl [Phenergan 25 mg/ml Vial] MEDS 03/28/18 19:08 Discontinued 25 mg .ROUTE .STK-MED ONE Promethazine HCl [Phenergan 25 mg/ml Vial] 25 mg MEDS 03/28/18 18:51 Discontinued 0.9 % Sodium Chloride [Sodium Chloride] 50 ml IV ONCE Sodium Chloride 0.9% [Sodium Chloride] 1,000 ml MEDS 03/28/18 18:50 Discontinued IV BOLUS ABDOMEN 1 VIEW Stat RADS 03/28/18 18:51 Taken CHEST, 1V AP ONLY Stat RADS 03/28/18 18:51 Taken Medications Generic Name Dose Route Start Last Admin Trade Name Freq PRN Reason Stop Dose Admin Sodium Chloride 1 syr 03/28/18 18:50 Saline Flush IVF PRN PRN To flush IV Discontinued Medications Generic Name Dose Route Start Last Admin Trade Name Freq PRN Reason Stop Dose Admin Hydromorphone HCl 1 mg 03/28/18 18:52 03/28/18 19:11 Dilaudid 1 Mg/Ml Syringe IVP 03/28/18 18:53 1 mg ONCE STA Administration Hydromorphone HCl 1 mg 03/28/18 21:03 03/28/18 21:07 Dilaudid 1 Mg/Ml Syringe IVP 03/28/18 21:04 1 mg ONCE STA Administration Promethazine HCl 25 mg/ Sodium 51 mls @ 75 mls/hr 03/28/18 18:51 03/28/18 19: 12 Chloride IV 03/28/18 19:31 75 mls/hr ONCE STA Administration Sodium Chloride 1,000 mls @ 500 mls/hr 03/28/18 18:50 03/28/18 19:12 Sodium Chloride IV 03/28/18 20:49 500 mls/hr BOLUS STA Administration Lorazepam 2 mg 03/28/18 18:51 03/28/18 19:10 Ativan IVP 03/28/18 18:52 2 mg ONCE STA Administration Vital Signs: Temp Pulse Resp BP Pulse Ox 03/28/18 17:54 98.0 F 66 18 142/89 H 99 Departure - Departure Time of Disposition: 22:34 Disposition: HOME SELF-CARE Discharge Problem: Anxiety Instructions: Generalized Anxiety Disorder (ED) Condition: Good Pt referred to PMD for follow-up: Yes IPMP verified?: No Additional Instructions: f/u with psychiatrist Allergies/Adverse Reactions: Allergies No Known Drug Allergies Adverse Reaction (Verified 03/28/18 17:59) Home Medications: Ambulatory Orders Alprazolam [Xanax] 1 mg PO BID 02/28/18 Pantoprazole Sodium [Protonix] 40 mg PO DAILY #30 tablet. 02/28/18 Disposition Discussed With: Patient
--- NOTE | 2018-03-29 07:40 | DI ---
Exam: Single view of the chest. Comparison: 03/23/2018. Reason for exam: Vomiting. FINDINGS: No pneumothorax, pleural effusion, or focal consolidation. The cardiac silhouette is not enlarged. The imaged osseous structures appear grossly unremarkable without acute fracture. Impression: No acute cardiopulmonary process.
--- NOTE | 2018-03-29 07:41 | DI ---
Exam: Single view of the abdomen. Comparison: 03/23/2018. Reason for exam: Vomiting. FINDINGS: The bowel gas pattern is nonspecific and nonobstructive. Surgical clips and right upper q uadrant are presumably from gallbladder removal. The imaged osseous structures appear grossly unrema rkable. Impression: Nonspecific, nonobstructive bowel gas pattern
== END 2018-03-28 22:40 | disposition home or self-care (01) ==
LOC: ED 17:54
DX: F41.9 Anxiety disorder, unspecified (principal); F17.210 Nicotine dependence, cigarettes, uncomplicated
CPT/HCPCS: 36415; 80053; 81001; 82150; 83690; 84703; 85025; 85651; 96361; 96365; 96375; 99283

== ENCOUNTER 2018-03-30 15:31 | Emergency (ER) ==
[2018-03-30 15:36] VITALS: BP 152/90; TEMP 97.6; BMI 20.3
[2018-03-30] MEDS ORDERED: PHENERGAN 25 MG/ML VIAL IM STA (18:24)
[2018-03-30] MEDS ORDERED: BENADRYL IM STA (18:24)
[2018-03-30] MEDS ORDERED: ATIVAN IM STA (18:24)
[2018-03-30] MEDS ORDERED: DILAUDID 1 MG/ML SYRINGE IM STA ×2 (18:25→19:38)
[2018-03-30] MEDS ORDERED: ATIVAN ONE (19:14)
--- NOTE | 2018-03-30 19:19 | DI ---
EXAMINATION: AP supine view of the abdomen. HISTORY: Abdominal pain COMPARISON: None. FINDINGS: No bowel dilatation, pathologic radio-opacities, free air, or portal venous gas are detect ed. No acute osseous abnormalities. There are no suspicious masses or calcifications. There has been prior cholecystectomy. IMPRESSION: No acute abnormality.
[2018-03-30] MEDS: DILAUDID 2 MG/ML SDV ONE ×2 (19:26→19:51)
--- NOTE | 2018-03-30 19:41 | ED.PDOC ---
General ED Provider: Dr. ACACIA MCCARTHY-ER Chief Complaint: Psychiatric Complaint Stated Complaint: my anxiety is bad Time Seen by Physician: 15:35 Mode of Arrival: Walk-In Information Source: Patient Exam Limitations: No limitations Primary Care Provider: ALEXANDRIA DE LA TORRE Nursing and Triage Documentation Reviewed and Agree: Yes Does patient meet sepsis criteria?: No System Inflammatory Response Syndrome: Not Applicable Sepsis Protocol: For patient's 13 years and over: Temp is 96.8 and below OR 101 and greater Pulse >90 BPM Resp >20/minute Acutely Altered Mental Status Are patient's symptoms suggestive of a new infection, such as: -Pneumonia -Skin, Soft Tissue -Endocarditis -UTI -Bone, Joint Infection -Implantable Device -Acute Abdominal Infection -Wound Infection -Meningitis -Blood Stream Catheter Infection -Unknown GI Complaint Exam - Vomiting/Diarrhea Complaint/Exam Onset/Duration: 2 hrs Symptoms Are: Still present Episodes of Vomiting over last 24 Hours: 6 Current Severity: None Character of Vomiting: Reports: Non-bilious Aggravating: Reports: None Alleviating: Reports: None Associated Signs and Symptoms: Reports: Abdominal pain, Cramping Menses: Regular Recent Positive Test: No Use of Oral Contraceptives: No Use of Depoprovera: No Compliant With Contraceptive Use: No Non-GI Risk Factors: Reports: None Related Surgical History: Reports: None Abdominal Findings: Present: None Kussmaul Respirations Present: No Differential Diagnoses: Other Review of Systems - Review Of Systems Constitutional: Reports: No symptoms Eyes: Reports: No symptoms Ears, Nose, Mouth, Throat: Reports: No symptoms Respiratory: Reports: No symptoms Cardiac: Reports: No symptoms GI: Reports: Abdominal pain, Nausea, Vomiting : Reports: No symptoms Musculoskeletal: Reports: No symptoms Skin: Reports: No symptoms Neurological: Reports: Anxiety Endocrine: Reports: No symptoms Hematologic/Lymphatic: Reports: No symptoms All Other Systems: Reviewed and Negative Past Medical History - Past Medical History Previously Healthy: Yes Endocrine: Reports: None Cardiovascular: Reports: None Respiratory: Reports: None Hematological: Reports: None Gastrointestinal: Reports: Pancreatitis ( advent pancreatitis february 2015:: Sheri 06/10/15) Genitourinary: Reports: None Neuro/Psych: Reports: Anxiety, PTSD Musculoskeletal: Reports: None Cancer: Reports: None Last Menstrual Period: 03/04/18 Other Pertinent Past Medical History: PANCREATITIS, PTSD CCE ANX, Drug abuser - Surgical History General Surgical History: Reports: Cholecystectomy - Family History Family History: Reports: Unknown - Social History Smoking Status: Current every day smoker, Heavy tobacco smoker Hx Substance Use: Yes (occ marijuana) Alcohol Screening: Occasionally - Immunizations Tetanus Shot up to Date: No Physical Exam - Physical Exam Appearance: Well-appearing, No pain distress, Well-nourished Pain Distress: Moderate Eyes: ALONZO, EOMI, Conjunctiva clear ENT: Ears normal, Nose normal, Oropharynx normal Neck: Supple Respiratory: Airway patent, Breath sounds clear, Breath sounds equal, Respirations nonlabored Cardiovascular: RRR GI/: Soft, Nontender, No masses, Bowel sounds normal, No Organomegaly Musculoskeletal: Normal strength, ROM intact, No edema, No calf tenderness Skin: Warm, Dry, Normal color Neurological: Sensation intact, Motor intact, Reflexes intact, Cranial nerves intact, Alert, Oriented Psychiatric: Affect appropriate, Mood appropriate, Anxious Interpretation - Radiology Interpretation Radiology Interpretation By: Radiologist Radiology Results: Negative Re-Evaluation - Re-Evaluation Time of Re-Evaluation: 19:43 Status: Improved Vital Signs Stable: Yes Pain Level: 1 Appearance: NAD Lungs: Clear Skin: Warm and Dry Neuro: Alert and Oriented X3 CV: RRR Critical Care Note - Critical Care Note Total Time (mins): 0 Course - Course Hematology/Chemistry: 03/30/18 18:23 03/30/18 19:00 Orders, Labs, Meds: Lab Review 03/30/18 03/30/18 03/30/18 18:23 18:30 19:00 WBC 11.36 H RBC 4.45 Hgb 14.0 Hct 40.3 MCV 90.6 MCH 31.5 H MCHC 34.7 RDW Coeff of Giovani 12.3 Plt Count 239 Immature Gran % (Auto) 0.4 Neut % (Auto) 85.0 Lymph % (Auto) 10.3 [place] % (Auto) 4.0 Eos % (Auto) 0.0 Baso % (Auto) 0.3 Immature Gran # (Auto) 0.1 Neut # (Auto) 9.7 H Lymph # (Auto) 1.2 [place] # (Auto) 0.5 Eos # (Auto) 0.0 Baso # (Auto) 0.0 Sodium 138.0 Potassium 3.80 Chloride 104.2 Carbon Dioxide 25.5 D Anion Gap 12.10 BUN 8.3 Creatinine 0.74 Estimated GFR (MDRD) 98.00 BUN/Creatinine Ratio 11.21 Glucose 105.8 Calcium 9.90 Total Bilirubin 0.29 AST 22.8 ALT 19.1 Alkaline Phosphatase 70.7 Total Protein 7.66 Albumin 4.77 Globulin 2.89 Albumin/Globulin Ratio 1.65 Amylase 116.5 H Lipase 82.5 Serum , Qual Negative Orders Category Date Time Status AMYLASE Stat LAB 03/30/18 19:00 Completed CBC W/ AUTO DIFF Stat LAB 03/30/18 18:23 Completed COMPREHENSIVE METABOLIC PANEL Stat LAB 03/30/18 19:00 Completed LIPASE Stat LAB 03/30/18 19:00 Completed SERUM Stat LAB 03/30/18 18:30 Completed URINALYSIS C & S IF INDICATED Stat LAB 03/30/18 19:36 Ordered Diphenhydramine Inj [Benadryl] MEDS 03/30/18 18:24 Discontinued 50 mg IM ONCE STA Hydromorphone HCl [Dilaudid 1 mg/ml Syringe] MEDS 03/30/18 18:25 Discontinued 1 mg IM ONCE STA Hydromorphone HCl [Dilaudid 1 mg/ml Syringe] MEDS 03/30/18 19:38 Stat 1 mg IM ONCE STA Hydromorphone HCl [Dilaudid 2 mg/ml Sdv] MEDS 03/30/18 19:12 Discontinued 2 mg .ROUTE .STK-MED ONE Lorazepam Inj [Ativan] MEDS 03/30/18 19:14 Discontinued 2 mg .ROUTE .STK-MED ONE Lorazepam [Ativan] MEDS 03/30/18 18:24 Discontinued 2 mg IM ONCE STA Promethazine HCl [Phenergan 25 mg/ml Vial] MEDS 03/30/18 18:24 Discontinued 25 mg IM ONCE STA ABDOMEN 1 VIEW Stat RADS 03/30/18 18:24 Completed Medications Generic Name Dose Route Start Last Admin Trade Name Freq PRN Reason Stop Dose Admin Hydromorphone HCl 1 mg 03/30/18 19:38 Dilaudid 1 Mg/Ml Syringe IM 03/30/18 19:39 ONCE STA Discontinued Medications Generic Name Dose Route Start Last Admin Trade Name Freq PRN Reason Stop Dose Admin Diphenhydramine HCl 50 mg 03/30/18 18:24 03/30/18 19:25 Benadryl IM 03/30/18 18:25 50 mg ONCE STA Administration Hydromorphone HCl 1 mg 03/30/18 18:25 03/30/18 19:28 Dilaudid 1 Mg/Ml Syringe IM 03/30/18 18:26 Not Given ONCE STA Lorazepam 2 mg 03/30/18 18:24 03/30/18 19:28 Ativan IM 03/30/18 18:25 Not Given ONCE STA Promethazine HCl 25 mg 03/30/18 18:24 03/30/18 19:27 Phenergan 25 Mg/Ml Vial IM 03/30/18 18:25 25 mg ONCE STA Administration Vital Signs: Temp Pulse Resp BP Pulse Ox 03/30/18 15:32 97.6 F 91 H 18 152/90 H 99 Departure - Departure Time of Disposition: 19:44 Disposition: HOME SELF-CARE Discharge Problem: Anxiety Instructions: Anxiety (ED) Condition: Good Pt referred to PMD for follow-up: Yes IPMP verified?: No Additional Instructions: f/u psych Allergies/Adverse Reactions: Allergies No Known Drug Allergies Adverse Reaction (Verified 03/30/18 15:36) Home Medications: Ambulatory Orders 1 [No Reported Medications] 03/30/18 Disposition Discussed With: Patient
== END 2018-03-30 20:13 | disposition home or self-care (01) ==
LOC: ED 15:31
DX: F41.9 Anxiety disorder, unspecified (principal); R10.9 Unspecified abdominal pain; R11.2 Nausea with vomiting, unspecified
CPT/HCPCS: 36415; 80053; 81001; 82150; 83690; 84703; 85025; 96372; 99283

== ENCOUNTER 2018-04-02 12:05 | Emergency (ER) ==
[2018-04-02 12:14] VITALS: BP 137/72; TEMP 98.2; BMI 21.7
--- NOTE | 2018-04-02 12:32 | ED.PDOC ---
General ED Provider: Dr. 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 Time Seen by Physician: 12:10 Mode of Arrival: Walk-In Information Source: Patient, Family Exam Limitations: Clinical condition Primary Care Provider: ALEXANDRIA DE LA TORRE Seen Within Last 72 Hours for Same Complaint By: ED Nursing and Triage Documentation Reviewed and Agree: Yes Does patient meet sepsis criteria?: No System Inflammatory Response Syndrome: Not Applicable Sepsis Protocol: For patient's 13 years and over: Temp is 96.8 and below OR 101 and greater Pulse >90 BPM Resp >20/minute Acutely Altered Mental Status Are patient's symptoms suggestive of a new infection, such as: -Pneumonia -Skin, Soft Tissue -Endocarditis -UTI -Bone, Joint Infection -Implantable Device -Acute Abdominal Infection -Wound Infection -Meningitis -Blood Stream Catheter Infection -Unknown Review of Systems - Review Of Systems Constitutional: Reports: No symptoms Eyes: Reports: Other (globe/eye movement abnormality) Ears, Nose, Mouth, Throat: Reports: No symptoms Respiratory: Reports: No symptoms Cardiac: Reports: No symptoms GI: Reports: No symptoms : Reports: No symptoms Musculoskeletal: Reports: Back pain, Neck pain (neck tightness), Other Skin: Reports: No symptoms Neurological: Reports: Anxiety, Depressed, Emotional problems Endocrine: Reports: No symptoms Hematologic/Lymphatic: Reports: No symptoms All Other Systems: Reviewed and Negative Past Medical History - Past Medical History Previously Healthy: Yes Endocrine: Reports: None Cardiovascular: Reports: None Respiratory: Reports: None Hematological: Reports: None Gastrointestinal: Reports: Pancreatitis ( buddhist pancreatitis february 2015:: Sheri 06/10/15) Genitourinary: Reports: None Neuro/Psych: Reports: Anxiety, PTSD Musculoskeletal: Reports: None Cancer: Reports: None Last Menstrual Period: beginning march Other Pertinent Past Medical History: PANCREATITIS, PTSD CCE ANX, Drug abuser - Surgical History General Surgical History: Reports: Cholecystectomy - Family History Family History: Reports: Unknown - Social History Smoking Status: Current every day smoker, Heavy tobacco smoker Hx Substance Use: Yes (occ marijuana) Alcohol Screening: Occasionally Physical Exam - Physical Exam Appearance: Well-appearing, No pain distress, Well-nourished Eyes: ALONZO, EOMI, Conjunctiva clear ENT: Ears normal, Nose normal, Oropharynx normal Respiratory: Airway patent, Breath sounds clear, Breath sounds equal, Respirations nonlabored Cardiovascular: RRR, Pulses normal, No rub, No murmur GI/: Soft, Nontender, No masses, Bowel sounds normal, No Organomegaly Musculoskeletal: Normal strength (Spam Lt cervical thoracic region ), ROM intact , No edema, No calf tenderness Skin: Warm, Dry, Normal color Neurological: Sensation intact, Motor intact, Reflexes intact, Cranial nerves intact, Alert, Oriented Psychiatric: Affect appropriate, Mood appropriate Re-Evaluation - Re-Evaluation Time of Re-Evaluation: 15:30 Status: Improved Vital Signs Stable: Yes Appearance: NAD Lungs: Clear Skin: Warm and Dry Neuro: Alert and Oriented X3 CV: RRR Critical Care Note - Critical Care Note Total Time (mins): 30 Course - Course Hematology/Chemistry: 04/02/18 12:57 04/02/18 12:57 Orders, Labs, Meds: Lab Review 04/02/18 04/02/18 04/02/18 12:50 12:50 12:57 WBC 9.61 RBC 4.51 Hgb 14.0 Hct 41.0 MCV 90.9 MCH 31.0 MCHC 34.1 RDW Coeff of Giovani 12.2 Plt Count 243 Immature Gran % (Auto) 0.5 Neut % (Auto) 53.3 Lymph % (Auto) 35.7 [place] % (Auto) 8.6 Eos % (Auto) 1.2 Baso % (Auto) 0.7 Immature Gran # (Auto) 0.1 Neut # (Auto) 5.1 Lymph # (Auto) 3.4 [place] # (Auto) 0.8 Eos # (Auto) 0.1 Baso # (Auto) 0.1 Sodium Potassium Chloride Carbon Dioxide Anion Gap BUN Creatinine Estimated GFR (MDRD) BUN/Creatinine Ratio Glucose Calcium Magnesium Total Bilirubin AST ALT Alkaline Phosphatase Total Protein Albumin Globulin Albumin/Globulin Ratio Amylase Lipase Serum , Qual Urine Color Yellow Urine Clarity Clear Urine pH 7.0 Ur Specific [place] 1.010 Urine Protein Negative Urine Glucose (UA) Negative Urine Ketones Negative Urine Blood Trace-lysed Urine Nitrite Negative Urine Bilirubin Negative Urine Urobilinogen 0.2 Ur Leukocyte Esterase Negative Urine Microscopic RBC 0-2 Ur Squamous Epith Cells 0-2 Urine Opiates Screen Negative Ur Oxycodone Screen Negative Urine Methadone Screen Negative Ur Propoxyphene Screen Negative Ur Barbiturates Screen Negative U Tricyclic Antidepress Negative Ur Phencyclidine Scrn Negative Ur Amphetamine Screen Negative U Methamphetamines Scrn Negative U Benzodiazepines Scrn Positive Urine Cocaine Screen Negative U Cannabinoids Screen Positive 04/02/18 04/02/18 12:57 12:57 WBC RBC Hgb Hct MCV MCH MCHC RDW Coeff of Giovani Plt Count Immature Gran % (Auto) Neut % (Auto) Lymph % (Auto) [place] % (Auto) Eos % (Auto) Baso % (Auto) Immature Gran # (Auto) Neut # (Auto) Lymph # (Auto) [place] # (Auto) Eos # (Auto) Baso # (Auto) Sodium 137.7 Potassium 4.14 Chloride 103.9 Carbon Dioxide 24.6 Anion Gap 13.34 BUN 11.1 Creatinine 0.79 Estimated GFR (MDRD) 91.00 BUN/Creatinine Ratio 14.05 Glucose 104.9 Calcium 9.74 Magnesium 2.03 Total Bilirubin 0.17 L AST 35.8 ALT 20.2 Alkaline Phosphatase 66.9 Total Protein 7.50 Albumin 4.79 Globulin 2.71 Albumin/Globulin Ratio 1.76 Amylase 121.8 H Lipase 141.9 Serum , Qual Negative Urine Color Urine Clarity Urine pH Ur Specific [place] Urine Protein Urine Glucose (UA) Urine Ketones Urine Blood Urine Nitrite Urine Bilirubin Urine Urobilinogen Ur Leukocyte Esterase Urine Microscopic RBC Ur Squamous Epith Cells Urine Opiates Screen Ur Oxycodone Screen Urine Methadone Screen Ur Propoxyphene Screen Ur Barbiturates Screen U Tricyclic Antidepress Ur Phencyclidine Scrn Ur Amphetamine Screen U Methamphetamines Scrn U Benzodiazepines Scrn Urine Cocaine Screen U Cannabinoids Screen Orders Category Date Time Status AMYLASE Stat LAB 04/02/18 12:57 Completed CBC W/ AUTO DIFF Stat LAB 04/02/18 12:57 Completed CMP [COMPREHENSIVE METABOLIC PANEL] Stat LAB 04/02/18 12:57 Completed HCG QUALITATIVE [SERUM ] Stat LAB 04/02/18 12:57 Completed LIPASE Stat LAB 04/02/18 12:57 Completed MAGNESIUM Stat LAB 04/02/18 12:57 Completed UA [URINALYSIS C & S IF INDICATED] Stat LAB 04/02/18 12:50 Completed URINE DRUG SCREEN (RAPID FOR ED) [DRUG SCREEN, URINE, LAB 04/02/18 12:50 Completed RAPID] Stat Hydromorphone HCl [Dilaudid 1 mg/ml Syringe] MEDS 04/02/18 12:44 Discontinued 1 mg IM ONCE STA Hydroxyzine HCl [Vistaril Inj] MEDS 04/02/18 12:43 Discontinued 50 mg IM ONCE STA Mag Hydrox/Al Hydrox/Simeth [Mylanta Susp] MEDS 04/02/18 15:18 Stat 30 ml PO ONCE STA Orphenadrine Citrate [Norflex] MEDS 04/02/18 12:48 Discontinued 60 mg IM ONCE STA Pantoprazole Sodium [Protonix] MEDS 04/02/18 15:17 Stat 40 mg PO ONCE STA CT HEAD W/O CONTRAST Stat RADS 04/02/18 14:06 Completed Medications Discontinued Medications Generic Name Dose Route Start Last Admin Trade Name Markusq PRN Reason Stop Dose Admin Al Hydroxide/Mg Hydroxide 30 ml 04/02/18 15:18 Mylanta Susp PO 04/02/18 15:19 ONCE STA Hydromorphone HCl 1 mg 04/02/18 12:44 04/02/18 13:00 Dilaudid 1 Mg/Ml Syringe IM 04/02/18 12:45 1 mg ONCE STA Administration Hydroxyzine HCl 50 mg 04/02/18 12:43 04/02/18 13:02 Vistaril Inj IM 04/02/18 12:44 50 mg ONCE STA Administration Orphenadrine Citrate 60 mg 04/02/18 12:48 04/02/18 12:59 Norflex IM 04/02/18 12:49 60 mg ONCE STA Administration Pantoprazole Sodium 40 mg 04/02/18 15:17 Protonix PO 04/02/18 15:18 ONCE STA Vital Signs: Temp Pulse Resp BP Pulse Ox 04/02/18 12:06 98.2 F 108 H 20 137/72 96 Departure - Departure Time of Disposition: 15:20 Disposition: HOME SELF-CARE Discharge Problem: Muscle spasm, Anxiety, GERD (gastroesophageal reflux disease), Dyspepsia, Neck pain, acute Instructions: Indigestion (ED), Muscle Spasm (ED) Condition: Good Pt referred to PMD for follow-up: Yes (1 week) IPMP verified?: No Additional Instructions: Take meds as directed for indigestion including mylanta suspension Follow up PCP Suggest Dr iNck PAULA for consult mg chronic anxiety and PTSD Prescriptions: Pantoprazole Sodium [Protonix] 40 mg PO DAILY #30 tablet. Allergies/Adverse Reactions: Allergies No Known Drug Allergies Adverse Reaction (Verified 04/02/18 12:14) Home Medications: Ambulatory Orders Orphenadrine Citrate 100 mg PO BID PRN #20 tablet.er 04/02/18 Pantoprazole Sodium [Protonix] 40 mg PO DAILY #30 tablet. 04/02/18 Disposition Discussed With: Patient, Family
[2018-04-02] MEDS ORDERED: VISTARIL INJ IM STA (12:43)
[2018-04-02] MEDS ORDERED: DILAUDID 1 MG/ML SYRINGE IM STA (12:44)
[2018-04-02] MEDS ORDERED: NORFLEX IM STA (12:48)
--- NOTE | 2018-04-02 14:36 | CT ---
EXAM: CT Head HISTORY: New onset multiple sclerosis spasm COMPARISON: None TECHNIQUE: CT head performed without contrast FINDINGS: There is no mass effect, midline shift, or intracranial hemmorhage. Pope white differenti ation is preserved. There is no extra-axial collection. The ventricles, sulci, and basal cisterns a re patent and symmetric. There is no depressed calvarial fracture. The mastoid air cells are clear. Complete opacification of the the visualized left maxillary sinus and mild mucosal thickening of the cysts left sphenoid sinus. IMPRESSION: 1. No acute intracranial abnormality. 2. Sinusitis with complete opacification of the visualized portion left maxillary sinus
[2018-04-02] MEDS ORDERED: PROTONIX PO STA (15:17)
[2018-04-02] MEDS ORDERED: MYLANTA SUSP PO STA (15:18)
== END 2018-04-02 15:31 | disposition home or self-care (01) ==
LOC: ED 12:05
DX: R25.9 Unspecified abnormal involuntary movements (principal); M54.2 Cervicalgia; F41.8 Other specified anxiety disorders; K21.9 Gastro-esophageal reflux disease without esophagitis; R10.13 Epigastric pain
CPT/HCPCS: 36415; 80053; 80306; 81001; 82150; 83690; 83735; 84703; 85025; 96372; 99283

== ENCOUNTER 2018-05-03 09:06 | Emergency (ER) ==
[2018-05-03 09:09] VITALS: BP 135/89; TEMP 97.5; BMI 21.1
[2018-05-03] MEDS ORDERED: ZOFRAN 4 MG/2 ML IM STA (09:17)
--- NOTE | 2018-05-03 09:20 | ED.PDOC ---
General ED Provider: Dr. NEGIN TORY Chief Complaint: Nausea/Vomiting Stated Complaint: NAUSEA, VOMITING Time Seen by Physician: 09:10 (PT SEEN WITH SURI AT ALL TIMES ) Mode of Arrival: Walk-In Information Source: Patient Exam Limitations: No limitations Primary Care Provider: ALEXANDRIA DE LA TORRE Nursing and Triage Documentation Reviewed and Agree: Yes Does patient meet sepsis criteria?: No System Inflammatory Response Syndrome: Not Applicable (PT HAS OCCASIONAL PANIC ATTACKS BECOME NAUSEATED , DRY HEAVES THIS IS A TYPICAL ATTACK FOR THE PT) Sepsis Protocol: For patient's 13 years and over: Temp is 96.8 and below OR 101 and greater Pulse >90 BPM Resp >20/minute Acutely Altered Mental Status Are patient's symptoms suggestive of a new infection, such as: -Pneumonia -Skin, Soft Tissue -Endocarditis -UTI -Bone, Joint Infection -Implantable Device -Acute Abdominal Infection -Wound Infection -Meningitis -Blood Stream Catheter Infection -Unknown GI Complaint Exam - Vomiting/Diarrhea Complaint/Exam Onset/Duration: THIS MORNING Symptoms Are: Still present Episodes of Vomiting over last 24 Hours: 0 Episodes of Diarrhea Over Last 24 Hours: 0 Initial Severity: Mild Current Severity: Mild Character of Vomiting: Reports: Non-bilious Aggravating: Reports: None Alleviating: Reports: None Associated Signs and Symptoms: Denies: Dizziness, Light-headedness, Melena, Hematemesis, Fever, Abdominal pain, Cramping Related History: Reports: Similar episode (DRY HEAVING , FEELING ANXIOUS ) Non-GI Risk Factors: Reports: None Surgical Obstruction Risk Factors: Reports: None Related Surgical History: Reports: None Abdominal Findings: Present: None Kussmaul Respirations Present: No Differential Diagnoses: Other (THIS ISSUE WAS SEEN IN PRIOR VISITS PT HAS A ANXIETY DISORDER ) Review of Systems - Review Of Systems Constitutional: Reports: No symptoms Eyes: Reports: No symptoms Ears, Nose, Mouth, Throat: Reports: No symptoms Respiratory: Reports: No symptoms Cardiac: Reports: No symptoms GI: Reports: Nausea, Poor appetite, Poor fluid intake : Reports: No symptoms Musculoskeletal: Reports: No symptoms Skin: Reports: No symptoms Neurological: Reports: Emotional problems Endocrine: Reports: No symptoms Hematologic/Lymphatic: Reports: No symptoms All Other Systems: Reviewed and Negative Past Medical History - Past Medical History Previously Healthy: Yes Endocrine: Reports: None Cardiovascular: Reports: None Respiratory: Reports: None Hematological: Reports: None Gastrointestinal: Reports: Pancreatitis ( yarsanism pancreatitis february 2015:: Sheri 06/10/15) Genitourinary: Reports: None Neuro/Psych: Reports: Anxiety, PTSD Musculoskeletal: Reports: None Cancer: Reports: None Last Menstrual Period: 3-4 weeks ago Other Pertinent Past Medical History: PANCREATITIS, PTSD CCE ANX, Drug abuser - Surgical History General Surgical History: Reports: Cholecystectomy - Family History Family History: Reports: Unknown - Social History Smoking Status: Current every day smoker, Heavy tobacco smoker Hx Substance Use: Yes (occ marijuana) Alcohol Screening: Occasionally Physical Exam - Physical Exam Appearance: Well-appearing, No pain distress, Well-nourished Eyes: ALONZO, EOMI, Conjunctiva clear ENT: Ears normal, Nose normal, Oropharynx normal Respiratory: Airway patent, Breath sounds clear, Breath sounds equal, Respirations nonlabored Cardiovascular: RRR, Pulses normal, No rub, No murmur GI/: Soft, Nontender, No masses, Bowel sounds normal, No Organomegaly Musculoskeletal: Normal strength, ROM intact, No edema, No calf tenderness Skin: Warm, Dry, Normal color Neurological: Sensation intact, Motor intact, Reflexes intact, Cranial nerves intact, Alert, Oriented Psychiatric: Affect appropriate, Mood appropriate Critical Care Note - Critical Care Note Total Time (mins): 0 Course - Course Orders, Labs, Meds: Orders Category Date Time Status Ondansetron HCl/Pf [Zofran 4 mg/2 ml] MEDS 05/03/18 09:17 Stat 8 mg IM ONCE STA Medications Generic Name Dose Route Start Last Admin Trade Name Freq PRN Reason Stop Dose Admin Ondansetron HCl 8 mg 05/03/18 09:17 Zofran 4 Mg/2 Ml IM 05/03/18 09:18 ONCE STA Vital Signs: Temp Pulse Resp BP Pulse Ox 05/03/18 09:06 97.5 F L 82 20 135/89 99 Departure - Departure Time of Disposition: 09:21 Disposition: HOME SELF-CARE Discharge Problem: Nausea, Anxiety, Panic attacks Nausea & vomiting Qualifiers: Vomiting type: unspecified Instructions: Anxiety (ED), Anxiolysis in Adults (ED), Panic Attack (ED) Condition: Good Pt referred to PMD for follow-up: Yes IPMP verified?: No Additional Instructions: Please call your Family Physician as soon as possible to schedule a follow-up appointment. Allergies/Adverse Reactions: Allergies No Known Drug Allergies Adverse Reaction (Verified 05/03/18 09:11) Home Medications: Ambulatory Orders Alprazolam [Xanax] 1 mg PO QID 05/03/18 Citalopram Hydrobromide [Celexa] 20 mg PO DAILY 05/03/18
== END 2018-05-03 09:52 | disposition home or self-care (01) ==
LOC: ED 09:06
DX: F41.0 Panic disorder [episodic paroxysmal anxiety] (principal); F41.9 Anxiety disorder, unspecified; R11.0 Nausea; F17.210 Nicotine dependence, cigarettes, uncomplicated
CPT/HCPCS: 96372; 99282

== ENCOUNTER 2018-05-06 10:53 | Outpatient (CLI) | END 2018-05-06 11:15 | disposition short-term general hospital (02) | LOC: AMBL 10:53 | PROVIDERS: ATTEND Internal Medicine Geriatric Medicine | DX: F41.9 Anxiety disorder, unspecified (principal); R07.9 Chest pain, unspecified; R10.9 Unspecified abdominal pain; R11.10 Vomiting, unspecified ==

== ENCOUNTER 2018-05-06 18:39 | Outpatient (CLI) | END 2018-05-06 18:43 | disposition short-term general hospital (02) | LOC: AMBL 18:39 | PROVIDERS: ATTEND Internal Medicine Geriatric Medicine | DX: F41.9 Anxiety disorder, unspecified (principal); R11.2 Nausea with vomiting, unspecified; R10.9 Unspecified abdominal pain ==

== ENCOUNTER 2018-05-06 18:47 | Emergency (ER) ==
[2018-05-06 18:54] VITALS: BP 113/75; TEMP 98.6; BMI 21.9
[2018-05-06] MEDS ORDERED: PROTONIX IV IVP STA (19:04)
[2018-05-06] MEDS ORDERED: PHENERGAN 25 MG/ML VIAL 25 MG in SODIUM CHLORIDE 50 ML IV STA (19:04)
[2018-05-06] MEDS ORDERED: SODIUM CHLORIDE 1,000 ML IV STA (19:04)
[2018-05-06] MEDS ORDERED: PHENERGAN 25 MG/ML VIAL ONE (19:11)
[2018-05-06] MEDS ORDERED: TORADOL IVP STA (19:22)
[2018-05-06] MEDS ORDERED: ATIVAN IVP STA (19:22)
--- NOTE | 2018-05-06 21:11 | ED.PDOC ---
General ED Provider: Dr. CHRISS QURESHI Chief Complaint: Nausea/Vomiting Stated Complaint: Patient is a 22 year old female who comes to the ER with nausea and vomiting, anxiety and chest pain, unable to keep medications down. Feels very anxious. Time Seen by Physician: 19:00 Mode of Arrival: Ambulance Information Source: Patient Primary Care Provider: ALEXANDRIA DE LA TORRE Nursing and Triage Documentation Reviewed and Agree: Yes Does patient meet sepsis criteria?: No System Inflammatory Response Syndrome: Not Applicable Sepsis Protocol: For patient's 13 years and over: Temp is 96.8 and below OR 101 and greater Pulse >90 BPM Resp >20/minute Acutely Altered Mental Status Are patient's symptoms suggestive of a new infection, such as: -Pneumonia -Skin, Soft Tissue -Endocarditis -UTI -Bone, Joint Infection -Implantable Device -Acute Abdominal Infection -Wound Infection -Meningitis -Blood Stream Catheter Infection -Unknown Review of Systems - Review Of Systems Constitutional: Reports: Loss of appetite Eyes: Reports: No symptoms Respiratory: Reports: No symptoms Cardiac: Reports: No symptoms GI: Reports: Abdominal pain, Nausea, Poor appetite, Poor fluid intake, Vomiting Musculoskeletal: Reports: No symptoms Skin: Reports: No symptoms Neurological: Reports: Anxiety, Emotional problems All Other Systems: Reviewed and Negative Past Medical History - Past Medical History Previously Healthy: Yes Endocrine: Reports: None Cardiovascular: Reports: None Respiratory: Reports: None Hematological: Reports: None Gastrointestinal: Reports: Pancreatitis ( scientologist pancreatitis february 2015:: Sheri 06/10/15) Genitourinary: Reports: None Neuro/Psych: Reports: Anxiety, PTSD Musculoskeletal: Reports: None Cancer: Reports: None Last Menstrual Period: on Other Pertinent Past Medical History: PANCREATITIS, PTSD CCE ANX, Drug abuser - Surgical History General Surgical History: Reports: Cholecystectomy - Family History Family History: Reports: Unknown - Social History Smoking Status: Current some day smoker Hx Substance Use: Yes Alcohol Screening: None - Immunizations Tetanus Shot up to Date: No Physical Exam - Physical Exam Appearance: Ill-appearing, Thin Ill-appearing: Moderate Pain Distress: Severe Eyes: ALONZO, EOMI, Conjunctiva clear Neck: Supple Respiratory: Airway patent, Breath sounds clear, Breath sounds equal, Respirations nonlabored Cardiovascular: RRR GI/: Soft, Tender (diffusely ) Skin: Warm, Dry, Normal color Neurological: Alert, Oriented Psychiatric: Anxious Re-Evaluation - Re-Evaluation Time of Re-Evaluation: 21:09 Status: Improved Vital Signs Stable: Yes Pain Level: improved. Appearance: NAD Critical Care Note - Critical Care Note Total Time (mins): 35 Course - Course Hematology/Chemistry: 05/06/18 19:15 05/06/18 19:15 Orders, Labs, Meds: Lab Review 05/06/18 05/06/18 05/06/18 19:15 19:15 20:33 WBC 13.74 H RBC 4.58 Hgb 14.5 Hct 40.3 MCV 88.0 MCH 31.7 H MCHC 36.0 H RDW Coeff of Giovani 12.4 Plt Count 239 Immature Gran % (Auto) 0.5 Neut % (Auto) 82.7 Lymph % (Auto) 11.6 [place] % (Auto) 4.9 Eos % (Auto) 0.0 Baso % (Auto) 0.3 Immature Gran # (Auto) 0.1 Neut # (Auto) 11.4 H Lymph # (Auto) 1.6 [place] # (Auto) 0.7 Eos # (Auto) 0.0 Baso # (Auto) 0.0 Sodium 138.6 Potassium 3.30 L Chloride 104.7 Carbon Dioxide 22.6 Anion Gap 14.60 BUN 8.7 Creatinine 0.93 Estimated GFR (MDRD) 75.00 BUN/Creatinine Ratio 9.35 Glucose 110.4 H Calcium 9.92 Total Bilirubin 0.46 AST 29.3 ALT 20.4 Alkaline Phosphatase 74.0 Total Protein 7.97 Albumin 4.87 Globulin 3.10 Albumin/Globulin Ratio 1.57 Amylase 130.7 H Lipase 191.2 Urine Color Yellow Urine Clarity Clear Urine pH 8.5 Ur Specific [place] 1.015 Urine Protein Negative Urine Glucose (UA) Negative Urine Ketones 4+ Urine Blood 2+ Urine Nitrite Negative Urine Bilirubin Negative Urine Urobilinogen 0.2 Ur Leukocyte Esterase Negative Urine Microscopic RBC 5-10 Urine Microscopic WBC 0-2 Ur Squamous Epith Cells 2-5 Urine Bacteria Trace Urine Mucus Trace Orders Category Date Time Status ED IV/MEDIPORT/POWERPORT .ONCE EMERGENCY 05/06/18 19:04 Active AMYLASE Stat LAB 05/06/18 19:15 Completed CBC W/ AUTO DIFF Stat LAB 05/06/18 19:15 Completed COMPREHENSIVE METABOLIC PANEL Stat LAB 05/06/18 19:15 Completed LIPASE Stat LAB 05/06/18 19:15 Completed URINALYSIS C & S IF INDICATED Stat LAB 05/06/18 20:33 Completed 0.9 % Sodium Chloride [Saline Flush] MEDS 05/06/18 19:04 Discontinued 1 syr IVF PRN PRN Ketorolac Tromethamine [Toradol] MEDS 05/06/18 19:22 Discontinued 30 mg IVP ONCE STA Lorazepam Inj [Ativan] MEDS 05/06/18 19:22 Discontinued 1 mg IVP ONCE STA Pantoprazole Sodium [Protonix IV] MEDS 05/06/18 19:04 Discontinued 40 mg IVP ONCE STA Promethazine HCl [Phenergan 25 mg/ml Vial] MEDS 05/06/18 19:11 Discontinued 25 mg .ROUTE .STK-MED ONE Promethazine HCl [Phenergan 25 mg/ml Vial] 25 mg MEDS 05/06/18 19:04 Discontinued 0.9 % Sodium Chloride [Sodium Chloride] 50 ml IV ONCE Sodium Chloride 0.9% [Sodium Chloride] 1,000 ml MEDS 05/06/18 19:04 Discontinued IV BOLUS Medications Discontinued Medications Generic Name Dose Route Start Last Admin Trade Name Freq PRN Reason Stop Dose Admin Promethazine HCl 25 mg/ Sodium 51 mls @ 75 mls/hr 05/06/18 19:04 05/06/18 19: 21 Chloride IV 05/06/18 19:44 75 mls/hr ONCE STA Administration Sodium Chloride 1,000 mls @ 1,000 mls/hr 05/06/18 19:04 05/06/18 19:15 Sodium Chloride IV 05/06/18 20:03 1,000 mls/hr BOLUS STA Administration Ketorolac Tromethamine 30 mg 05/06/18 19:22 05/06/18 19:30 Toradol IVP 05/06/18 19:23 30 mg ONCE STA Administration Lorazepam 1 mg 05/06/18 19:22 05/06/18 19:27 Ativan IVP 05/06/18 19:23 1 mg ONCE STA Administration Pantoprazole Sodium 40 mg 05/06/18 19:04 05/06/18 19:17 Protonix Iv IVP 05/06/18 19:05 40 mg ONCE STA Administration Sodium Chloride 1 syr 05/06/18 19:04 05/06/18 19:29 Saline Flush IVF 1 syr PRN PRN Administration To flush IV Vital Signs: Temp Pulse Resp BP Pulse Ox 05/06/18 19:40 55 L 12 100 05/06/18 18:48 98.6 F 78 26 H 113/75 100 Departure - Departure Time of Disposition: 21:11 Disposition: HOME SELF-CARE Discharge Problem: Nausea & vomiting Qualifiers: Vomiting type: unspecified Vomiting Intractability: non-intractable Qualified Code(s): R11.2 - Nausea with vomiting, unspecified Instructions: Acute Nausea and Vomiting (ED) Condition: Stable Pt referred to PMD for follow-up: Yes IPMP verified?: No Additional Instructions: Continue home medications. Follow up with PCP in 2 days Allergies/Adverse Reactions: Allergies No Known Drug Allergies Adverse Reaction (Verified 05/06/18 19:03) Home Medications: Ambulatory Orders Alprazolam [Xanax] 1 mg PO QID 05/03/18 Citalopram Hydrobromide [Celexa] 20 mg PO DAILY 05/03/18 Disposition Discussed With: Patient, Family
== END 2018-05-06 21:22 | disposition home or self-care (01) ==
LOC: ED 18:47
DX: R11.2 Nausea with vomiting, unspecified (principal); R07.9 Chest pain, unspecified; F41.9 Anxiety disorder, unspecified; F17.210 Nicotine dependence, cigarettes, uncomplicated
CPT/HCPCS: 36415; 80053; 81001; 82150; 83690; 85025; 96361; 96365; 96375; 99283

== ENCOUNTER 2018-05-08 14:48 | Emergency (ER) ==
[2018-05-08 14:57] VITALS: TEMP 99.5; BMI 22.6
[2018-05-08 15:04] VITALS: BP 139/85
[2018-05-08] MEDS ORDERED: PHENERGAN 25 MG/ML VIAL IM STA (15:23)
--- NOTE | 2018-05-08 15:27 | ED.PDOC ---
General ED Provider: Dr. ACACIA LIZARRAGA MD Chief Complaint: Nausea/Vomiting Stated Complaint: vomiting Time Seen by Physician: 15:30 Mode of Arrival: Walk-In Information Source: Patient Primary Care Provider: ALEXANDRIA DE LA TORRE Nursing and Triage Documentation Reviewed and Agree: Yes Does patient meet sepsis criteria?: No If yes, has appropriate treatment been initiated?: Yes System Inflammatory Response Syndrome: Not Applicable Sepsis Protocol: For patient's 13 years and over: Temp is 96.8 and below OR 101 and greater Pulse >90 BPM Resp >20/minute Acutely Altered Mental Status Are patient's symptoms suggestive of a new infection, such as: -Pneumonia -Skin, Soft Tissue -Endocarditis -UTI -Bone, Joint Infection -Implantable Device -Acute Abdominal Infection -Wound Infection -Meningitis -Blood Stream Catheter Infection -Unknown GI Complaint Exam - Vomiting/Diarrhea Complaint/Exam Symptoms Are: Still present Initial Severity: Mild Current Severity: Moderate Character of Vomiting: Reports: Non-bilious Aggravating: Reports: None Alleviating: Reports: Medications Related History: Reports: Similar episode Recent Positive Test: No Use of Oral Contraceptives: No Use of Depoprovera: No Compliant With Contraceptive Use: No Non-GI Risk Factors: Reports: None Surgical Obstruction Risk Factors: Reports: None Related Surgical History: Reports: None Rectal Exam: Present: Other (refused.) Kussmaul Respirations Present: No Differential Diagnoses: Gastritis, Viral Gastroenteritis, Other (drug seeking behavior) Review of Systems - Review Of Systems Constitutional: Reports: No symptoms Eyes: Reports: No symptoms Ears, Nose, Mouth, Throat: Reports: No symptoms Respiratory: Reports: No symptoms Cardiac: Reports: No symptoms GI: Reports: Nausea : Reports: No symptoms Musculoskeletal: Reports: No symptoms Skin: Reports: No symptoms Neurological: Reports: No symptoms Endocrine: Reports: No symptoms Hematologic/Lymphatic: Reports: No symptoms All Other Systems: Reviewed and Negative Past Medical History - Past Medical History Previously Healthy: Yes Endocrine: Reports: None Cardiovascular: Reports: None Respiratory: Reports: None Hematological: Reports: None Gastrointestinal: Reports: Pancreatitis ( evangelical pancreatitis february 2015:: Sheri 06/10/15) Genitourinary: Reports: None Neuro/Psych: Reports: Anxiety, PTSD Musculoskeletal: Reports: None Cancer: Reports: None Last Menstrual Period: NOW Other Pertinent Past Medical History: PANCREATITIS, PTSD CCE ANX, Drug abuser - Surgical History General Surgical History: Reports: Cholecystectomy - Family History Family History: Reports: Unknown - Social History Smoking Status: Current some day smoker Hx Substance Use: Yes (OCCASSIONAL MARIJUANA) Alcohol Screening: None Physical Exam - Physical Exam Appearance: Thin Ill-appearing: None Pain Distress: Moderate Eyes: ALONZO, EOMI, Conjunctiva clear ENT: Ears normal, Nose normal, Oropharynx normal Respiratory: Airway patent, Breath sounds clear, Breath sounds equal, Respirations nonlabored Cardiovascular: RRR, Pulses normal, No rub, No murmur GI/: Soft, No masses, Bowel sounds normal, No Organomegaly, Tender, Bowel sounds hypoactive Musculoskeletal: Normal strength, ROM intact, No edema, No calf tenderness Skin: Warm, Dry, Normal color Neurological: Sensation intact, Motor intact, Reflexes intact, Cranial nerves intact, Alert, Oriented Psychiatric: Anxious (overly dramatic, c/o pain., symptoms disappear upon leaving the room) Critical Care Note - Critical Care Note Total Time (mins): 0 Course - Course Orders, Labs, Meds: Lab Review 05/08/18 15:40 Serum , Qual Negative Orders Category Date Time Status SERUM TEST [SERUM ] Stat LAB 05/08/18 15:40 Completed Promethazine HCl [Phenergan 25 mg/ml Vial] MEDS 05/08/18 15:23 Discontinued 50 mg IM ONCE STA KUB [ABDOMEN 1 VIEW] Stat RADS 05/08/18 15:26 Completed Medications Discontinued Medications Generic Name Dose Route Start Last Admin Trade Name Markusq PRN Reason Stop Dose Admin Promethazine HCl 50 mg 05/08/18 15:23 05/08/18 15:50 Phenergan 25 Mg/Ml Vial IM 05/08/18 15:24 50 mg ONCE STA Administration Vital Signs: Temp Pulse Resp BP Pulse Ox 05/08/18 14:50 99.5 F 78 20 139/85 98 Departure - Departure Time of Disposition: 17:40 Disposition: HOME SELF-CARE Discharge Problem: Anxiety, Drug-seeking behavior Nausea & vomiting Qualifiers: Vomiting type: unspecified Condition: Stable Pt referred to PMD for follow-up: Yes (follow up with [facility]) IPMP verified?: No Allergies/Adverse Reactions: Allergies No Known Drug Allergies Adverse Reaction (Verified 05/06/18 19:03) Home Medications: Ambulatory Orders Citalopram Hydrobromide [Celexa] 20 mg PO DAILY 05/03/18
--- NOTE | 2018-05-08 16:42 | DI ---
EXAM: Single view of the abdomen. History: Abdominal pain. Comparison: Abdominal radiograph 03/30/2018 Findings: Cholecystectomy clips. Nonspecific but nonobstructive bowel gas pattern. No free intrape ritoneal air. No acute osseous abnormalities and no suspicious calcifications. Impression: No acute radiographic findings in the abdomen
[2018-05-08] MEDS ORDERED: ATIVAN IM STA (17:56)
== END 2018-05-08 19:03 | disposition home or self-care (01) ==
LOC: ED 14:48
DX: F41.9 Anxiety disorder, unspecified (principal); R11.2 Nausea with vomiting, unspecified; Z72.89 Other problems related to lifestyle; F17.210 Nicotine dependence, cigarettes, uncomplicated
CPT/HCPCS: 36415; 84703; 96372; 99283

== ENCOUNTER 2018-05-09 09:51 | Outpatient (CLI) ==
[2018-05-09 10:04] VITALS: BMI 21.9
== END 2018-05-09 09:55 | disposition short-term general hospital (02) ==
LOC: AMBL 09:51
PROVIDERS: ATTEND Emergency Medicine
DX: R07.9 Chest pain, unspecified (principal); R11.10 Vomiting, unspecified; R10.9 Unspecified abdominal pain; R53.1 Weakness; F41.9 Anxiety disorder, unspecified

== ENCOUNTER 2018-05-09 09:58 | Emergency (ER) ==
[2018-05-09 10:04] VITALS: BP 136/98; TEMP 98.3; BMI 21.9
--- NOTE | 2018-05-09 10:21 | ED.PDOC ---
General ED Provider: Dr. ACACIA CORREA Chief Complaint: Behavioral Complaint Stated Complaint: Highly anxious; Reflux and gastric pain. Vomiting and abdom cramping. Dealing with this issue for 6 days. Marked chest wall pain -chronic with exacerabation Time Seen by Physician: 10:15 Mode of Arrival: Walk-In Information Source: Patient, EMT Exam Limitations: No limitations Primary Care Provider: ALEXANDRIA DE LA TORRE Nursing and Triage Documentation Reviewed and Agree: Yes Does patient meet sepsis criteria?: No System Inflammatory Response Syndrome: Not Applicable Sepsis Protocol: For patient's 13 years and over: Temp is 96.8 and below OR 101 and greater Pulse >90 BPM Resp >20/minute Acutely Altered Mental Status Are patient's symptoms suggestive of a new infection, such as: -Pneumonia -Skin, Soft Tissue -Endocarditis -UTI -Bone, Joint Infection -Implantable Device -Acute Abdominal Infection -Wound Infection -Meningitis -Blood Stream Catheter Infection -Unknown Psychological Complaint Exam - Psychiatric Complaint/Exam Patient Complains Of: Present: Other (severe anxiety-chronic recurrent ) Symptoms Are: Still present Timing: Constant Episodes Lasting: Days Initial Severity: Severe Current Severity: Moderate Character: Present: Anxious Aggravating: Reports: Recent stress Associated Signs And Symptoms: Reports: Appetite change. Denies: Hostile, Confused, Hallucinating, Paranoid behavior, Sleep disturbance Related History: Denies: Suicidal plan, Homicidal gestures Completed Suicide Risk Factors: None Social Withdrawal Present: No Social Isolation Present: No Injury From Prior Suicide Attempt: No Review of Systems - Review Of Systems Constitutional: Reports: No symptoms Eyes: Reports: No symptoms Ears, Nose, Mouth, Throat: Reports: No symptoms Respiratory: Reports: No symptoms Cardiac: Reports: No symptoms GI: Reports: Abdominal pain, Nausea, Poor appetite, Poor fluid intake, Vomiting : Reports: No symptoms Musculoskeletal: Reports: No symptoms Skin: Reports: No symptoms Neurological: Reports: No symptoms Endocrine: Reports: No symptoms Hematologic/Lymphatic: Reports: No symptoms All Other Systems: Reviewed and Negative Past Medical History - Past Medical History Previously Healthy: Yes Endocrine: Reports: None Cardiovascular: Reports: None Respiratory: Reports: None Hematological: Reports: None Gastrointestinal: Reports: Pancreatitis ( jehovah's witness pancreatitis february 2015:: Sheri 06/10/15) Genitourinary: Reports: None Neuro/Psych: Reports: Anxiety, PTSD Musculoskeletal: Reports: None Cancer: Reports: None Last Menstrual Period: now Other Pertinent Past Medical History: PANCREATITIS, PTSD CCE ANX, Drug abuser - Surgical History General Surgical History: Reports: Cholecystectomy - Family History Family History: Reports: Unknown - Social History Smoking Status: Current every day smoker, Light tobacco smoker Hx Substance Use: Yes (OCCASSIONAL MARIJUANA) Alcohol Screening: None Physical Exam - Physical Exam Appearance: Well-appearing, No pain distress, Well-nourished Eyes: ALONZO, EOMI, Conjunctiva clear ENT: Ears normal, Nose normal, Oropharynx normal Respiratory: Airway patent, Breath sounds clear, Breath sounds equal, Respirations nonlabored Cardiovascular: RRR, Pulses normal, No rub, No murmur GI/: Soft, No masses, Bowel sounds normal, No Organomegaly, Tender Musculoskeletal: Normal strength, ROM intact, No edema, No calf tenderness Skin: Warm, Dry, Normal color Neurological: Sensation intact, Motor intact, Reflexes intact, Cranial nerves intact, Alert, Oriented Psychiatric: Affect appropriate, Mood appropriate Critical Care Note - Critical Care Note Total Time (mins): 60 Course - Course Hematology/Chemistry: 05/09/18 10:45 05/09/18 13:32 Orders, Labs, Meds: Lab Review 05/09/18 05/09/18 05/09/18 10:45 10:45 10:45 WBC 11.38 H RBC 4.40 Hgb 13.8 Hct 39.4 MCV 89.5 MCH 31.4 H MCHC 35.0 RDW Coeff of Giovani 12.4 Plt Count 229 Immature Gran % (Auto) 0.4 Neut % (Auto) 73.9 Lymph % (Auto) 18.5 [place] % (Auto) 6.5 Eos % (Auto) 0.3 Baso % (Auto) 0.4 Immature Gran # (Auto) 0.1 Neut # (Auto) 8.4 H Lymph # (Auto) 2.1 [place] # (Auto) 0.7 Eos # (Auto) 0.0 Baso # (Auto) 0.0 Sodium 137.2 Potassium 2.94 L Chloride 96.9 L Carbon Dioxide 31.1 H D Anion Gap 12.14 BUN 13.6 Creatinine 0.83 Estimated GFR (MDRD) 86.00 BUN/Creatinine Ratio 16.38 Glucose 107.3 H Calcium 9.57 Magnesium Total Bilirubin 0.52 AST 39.7 H ALT 21.5 Alkaline Phosphatase 60.2 Troponin I < 0.012 Total Protein 7.70 Albumin 4.66 Globulin 3.04 Albumin/Globulin Ratio 1.53 Amylase 147.9 H Lipase 122.6 Urine Color Urine Clarity Urine pH Ur Specific [place] Urine Protein Urine Glucose (UA) Urine Ketones Urine Blood Urine Nitrite Urine Bilirubin Urine Urobilinogen Ur Leukocyte Esterase Urine Microscopic RBC Urine Microscopic WBC Ur Squamous Epith Cells Urine Bacteria Urine Mucus Urine Test 05/09/18 05/09/18 05/09/18 10:45 10:55 10:55 WBC RBC Hgb Hct MCV MCH MCHC RDW Coeff of Giovani Plt Count Immature Gran % (Auto) Neut % (Auto) Lymph % (Auto) [place] % (Auto) Eos % (Auto) Baso % (Auto) Immature Gran # (Auto) Neut # (Auto) Lymph # (Auto) [place] # (Auto) Eos # (Auto) Baso # (Auto) Sodium Potassium Chloride Carbon Dioxide Anion Gap BUN Creatinine Estimated GFR (MDRD) BUN/Creatinine Ratio Glucose Calcium Magnesium 1.91 Total Bilirubin AST ALT Alkaline Phosphatase Troponin I Total Protein Albumin Globulin Albumin/Globulin Ratio Amylase Lipase Urine Color Dark Urine Clarity Slightly Urine pH 7.0 Ur Specific [place] 1.020 Urine Protein 1+ Urine Glucose (UA) Negative Urine Ketones 1+ Urine Blood 2+ Urine Nitrite Negative Urine Bilirubin 1+ Urine Urobilinogen 0.2 Ur Leukocyte Esterase Negative Urine Microscopic RBC 5-10 Urine Microscopic WBC 0-2 Ur Squamous Epith Cells 0-2 Urine Bacteria Trace Urine Mucus 1+ Urine Test Negative 05/09/18 13:32 WBC RBC Hgb Hct MCV MCH MCHC RDW Coeff of Giovani Plt Count Immature Gran % (Auto) Neut % (Auto) Lymph % (Auto) [place] % (Auto) Eos % (Auto) Baso % (Auto) Immature Gran # (Auto) Neut # (Auto) Lymph # (Auto) [place] # (Auto) Eos # (Auto) Baso # (Auto) Sodium 136.3 L Potassium 3.92 Chloride 103.3 Carbon Dioxide 24.9 Anion Gap 12.02 BUN Creatinine Estimated GFR (MDRD) BUN/Creatinine Ratio Glucose Calcium Magnesium Total Bilirubin AST ALT Alkaline Phosphatase Troponin I Total Protein Albumin Globulin Albumin/Globulin Ratio Amylase Lipase Urine Color Urine Clarity Urine pH Ur Specific [place] Urine Protein Urine Glucose (UA) Urine Ketones Urine Blood Urine Nitrite Urine Bilirubin Urine Urobilinogen Ur Leukocyte Esterase Urine Microscopic RBC Urine Microscopic WBC Ur Squamous Epith Cells Urine Bacteria Urine Mucus Urine Test Orders Category Date Time Status EKG-(ED ONLY) Stat CARDIO 05/09/18 10:37 Completed NPO REMINDER: IMAGING ONCE CARE 05/09/18 10:37 Completed VITAL SIGNS Q15MIN CARE 05/09/18 10:37 Active IV [ED IV/MEDIPORT/POWERPORT] .ONCE EMERGENCY 05/09/18 10:36 Active AMYLASE Stat LAB 05/09/18 10:45 Completed CBC W/ AUTO DIFF Stat LAB 05/09/18 10:45 Completed CMP [COMPREHENSIVE METABOLIC PANEL] Stat LAB 05/09/18 10:45 Completed ELECTROLYTES Stat LAB 05/09/18 13:32 Completed LIPASE Stat LAB 05/09/18 10:45 Completed MAGNESIUM Stat LAB 05/09/18 10:45 Completed TROPONIN I Stat LAB 05/09/18 10:45 Completed UA [URINALYSIS C & S IF INDICATED] Stat LAB 05/09/18 10:55 Completed URINE Stat LAB 05/09/18 10:55 Completed 0.9 % Sodium Chloride [Saline Flush] MEDS 05/09/18 10:36 Active 1 syr IVF PRN PRN Famotidine Inj [Pepcid] MEDS 05/09/18 11:30 Discontinued 20 mg IVP ONCE STA Hydroxyzine HCl [Vistaril Inj] MEDS 05/09/18 14:51 Discontinued 25 mg IM ONCE STA Ketorolac Tromethamine [Toradol] MEDS 05/09/18 11:30 Discontinued 30 mg IVP ONCE STA Lorazepam Inj [Ativan] MEDS 05/09/18 11:29 Discontinued 1 mg IVP ONCE STA Mag-Al Plus//Lidocaine [Gi Cocktail] MEDS 05/09/18 10:38 Discontinued 30 ml PO ONCE STA Nalbuphine HCl [Nubain] MEDS 05/09/18 14:51 Discontinued 10 mg IM ONCE STA Ondansetron HCl/Pf [Zofran 4 mg/2 ml] MEDS 05/09/18 10:38 Discontinued 4 mg IVP ONCE STA Potassium Chloride in 0.9%NaCl [Sodium Chloride 0.9%- MEDS 05/09/18 12:09 Discontinued KCl 20 Meq] 1,000 ml IV BOLUS Promethazine HCl [Phenergan 25 mg/ml Vial] MEDS 05/09/18 12:48 Discontinued 25 mg IM ONCE STA Ringers Lactated Solution [Lactated Ringers] 1,000 ml MEDS 05/09/18 10:39 Discontinued IV BOLUS ABDOMEN, SERIES FLAT & UPRIGHT Stat RADS 05/09/18 10:37 Completed Medications Generic Name Dose Route Start Last Admin Trade Name Ignacio PRN Reason Stop Dose Admin Sodium Chloride 1 syr 05/09/18 10:36 05/09/18 10:49 Saline Flush IVF 1 syr PRN PRN Administration To flush IV Discontinued Medications Generic Name Dose Route Start Last Admin Trade Name Ignacio PRN Reason Stop Dose Admin Al Hydroxide/Mg Hydroxide 30 ml 05/09/18 10:38 05/09/18 11:09 Gi Cocktail PO 05/09/18 10:39 30 ml ONCE STA Administration Famotidine 20 mg 05/09/18 11:30 05/09/18 11:41 Pepcid IVP 05/09/18 11:31 20 mg ONCE STA Administration Hydroxyzine HCl 25 mg 05/09/18 14:51 05/09/18 14:58 Vistaril Inj IM 05/09/18 14:52 25 mg ONCE STA Administration Lactated Ringer's 1,000 mls @ 1,000 mls/hr 05/09/18 10:39 05/09/18 10:49 Lactated Ringers IV 05/09/18 11:38 1,000 mls/hr BOLUS STA Administration Potassium Chloride/Sodium Chloride 1,000 mls @ 500 mls/hr 05/09/18 12:09 12/19 12:13 Sodium Chloride 0.9%-Kcl 20 Meq IV 05/09/18 14:08 250 mls/hr BOLUS STA Administration Ketorolac Tromethamine 30 mg 05/09/18 11:30 05/09/18 11:41 Toradol IVP 05/09/18 11:31 30 mg ONCE STA Administration Lorazepam 1 mg 05/09/18 11:29 05/09/18 11:41 Ativan IVP 05/09/18 11:30 1 mg ONCE STA Administration Nalbuphine HCl 10 mg 05/09/18 14:51 05/09/18 14:57 Nubain IM 05/09/18 14:52 10 mg ONCE STA Administration Ondansetron HCl 4 mg 05/09/18 10:38 05/09/18 10:50 Zofran 4 Mg/2 Ml IVP 05/09/18 10:39 4 mg ONCE STA Administration Promethazine HCl 25 mg 05/09/18 12:48 05/09/18 12:56 Phenergan 25 Mg/Ml Vial IM 05/09/18 12:49 25 mg ONCE STA Administration Vital Signs: Temp Pulse Resp BP Pulse Ox 05/09/18 09:59 98.3 F 76 16 136/98 H 100 Departure - Departure Time of Disposition: 15:20 Disposition: HOME SELF-CARE Discharge Problem: Panic disorder, Chest wall pain, Vomiting, Hypokalemia Instructions: Hypokalemia (ED), Panic Disorder (ED), Anxiety (ED) Condition: Fair Pt referred to PMD for follow-up: Yes IPMP verified?: No Additional Instructions: Seek medical care at the [facility] Take meds as directed Prescriptions: Alprazolam [Xanax] 1 mg PO BID #10 tablet Allergies/Adverse Reactions: Allergies No Known Drug Allergies Adverse Reaction (Verified 05/09/18 10:06) Home Medications: Ambulatory Orders Citalopram Hydrobromide [Celexa] 20 mg PO DAILY 05/03/18 Alprazolam [Xanax] 1 mg PO BID #10 tablet 05/09/18 Disposition Discussed With: Patient
[2018-05-09] MEDS ORDERED: GI COCKTAIL PO STA (10:38)
[2018-05-09] MEDS ORDERED: ZOFRAN 4 MG/2 ML IVP STA (10:38)
[2018-05-09] MEDS ORDERED: LACTATED RINGERS 1,000 ML IV STA (10:39)
[2018-05-09 11:01] LABS: URINE PREGNANCY TEST NEGATIVE (NEGATIVE)
[2018-05-09] MEDS ORDERED: ATIVAN IVP STA (11:29)
--- NOTE | 2018-05-09 11:29 | DI ---
EXAM: Abdomen, two-view HISTORY: Vomiting and abdominal cramping, pain COMPARISON: 05/08/2018 TECHNIQUE: Supine upright views of the abdomen were performed FINDINGS: No free air identified beneath the diaphragm. There are no dilated loops of small bowel. T here is air and stool throught the colon. There are no abnormal calcifications. There are no acute ab normalities of the bones. Surgical clips in the right upper quadrant. IMPRESSION: No acute abnormality identified.
[2018-05-09] MEDS ORDERED: TORADOL IVP STA (11:30)
[2018-05-09] MEDS ORDERED: PEPCID IVP STA (11:30)
[2018-05-09] MEDS ORDERED: SODIUM CHLORIDE 0.9%-KCL 20 MEQ 1,000 ML IV STA (12:09)
[2018-05-09] MEDS ORDERED: PHENERGAN 25 MG/ML VIAL IM STA (12:48)
[2018-05-09] MEDS ORDERED: VISTARIL INJ IM STA (14:51)
[2018-05-09] MEDS ORDERED: NUBAIN IM STA (14:51)
== END 2018-05-09 15:45 | disposition home or self-care (01) ==
LOC: ED 09:58
DX: F41.0 Panic disorder [episodic paroxysmal anxiety] (principal); R07.89 Other chest pain; E87.6 Hypokalemia; F17.210 Nicotine dependence, cigarettes, uncomplicated
CPT/HCPCS: 36415; 80051; 80053; 81001; 81025; 82150; 83690; 83735; 84484; 85025; 93005; 93010; 96360; 96361; 96372; 96375; 99284

== ENCOUNTER 2018-05-11 18:50 | Outpatient (CLI) ==
[2018-05-11 19:10] VITALS: BMI 21.9
== END 2018-05-11 18:51 | disposition home or self-care (01) ==
LOC: AMBL 18:50
PROVIDERS: ATTEND Emergency Medicine
DX: F41.9 Anxiety disorder, unspecified (principal); R10.9 Unspecified abdominal pain; R11.2 Nausea with vomiting, unspecified

== ENCOUNTER 2018-05-11 19:09 | Emergency (ER) ==
[2018-05-11 19:10] VITALS: BMI 21.9
[2018-05-11 19:17] VITALS: BP 137/87; TEMP 98.7
[2018-05-11] MEDS ORDERED: BENTYL IM STA (19:35)
[2018-05-11] MEDS ORDERED: ZOFRAN ODT PO STA (19:35)
[2018-05-11] MEDS ORDERED: BUSPAR PO STA (19:36)
--- NOTE | 2018-05-11 19:40 | ED.PDOC ---
General ED Provider: Dr. CHRISS QURESHI Chief Complaint: Psychiatric Complaint Stated Complaint: Patient is a 22 year old female who has been to the ER here and in [place] multiple times recently for anxiety, nausea, vomiting, Drug seeking behaviour who comes to the ER with nausea, vomiting and abdominal pain. Time Seen by Physician: 19:38 Mode of Arrival: Ambulance Information Source: Patient Primary Care Provider: ALEXANDRIA DE LA TORRE Nursing and Triage Documentation Reviewed and Agree: Yes Does patient meet sepsis criteria?: No System Inflammatory Response Syndrome: Not Applicable Sepsis Protocol: For patient's 13 years and over: Temp is 96.8 and below OR 101 and greater Pulse >90 BPM Resp >20/minute Acutely Altered Mental Status Are patient's symptoms suggestive of a new infection, such as: -Pneumonia -Skin, Soft Tissue -Endocarditis -UTI -Bone, Joint Infection -Implantable Device -Acute Abdominal Infection -Wound Infection -Meningitis -Blood Stream Catheter Infection -Unknown Psychological Complaint Exam - Psychiatric Complaint/Exam Patient Complains Of: Present: Other (Anxiety ) Onset/Duration: chronic Symptoms Are: Still present Timing: Intermittent Current Severity: Moderate Character: Present: Depressed, Anxious Associated Signs And Symptoms: Reports: Sleep disturbance, Appetite change. Denies: Hostile, Confused, Hallucinating, Paranoid behavior Related History: Denies: Suicidal thoughts, Suicidal plan, Suicidal gestures, Homicidal thoughts, Homicidal gestures, Recent stressors Completed Suicide Risk Factors: Patient In Custody Of Police: No Social Withdrawal Present: No Social Isolation Present: No Prior Suicide Attempt: No Injury From Prior Suicide Attempt: No Related Surgical History: Reports: None Patient Uncooperative For Exam: No Mood: Present: Depressed, Anxious Appearance: Present: Unkempt Thought Process: Present: Logical Insight: Present: Poor Memory: Intact Judgement: Normal Danger To Others: No Differential Diagnoses: Anxiety, Bipolar Disorder, Depression Review of Systems - Review Of Systems Constitutional: Reports: No symptoms Respiratory: Reports: No symptoms Cardiac: Reports: No symptoms GI: Reports: Abdominal pain, Nausea, Poor appetite, Vomiting : Reports: No symptoms Musculoskeletal: Reports: No symptoms Skin: Reports: No symptoms Neurological: Reports: Anxiety, Depressed, Emotional problems All Other Systems: Reviewed and Negative Past Medical History - Past Medical History Previously Healthy: Yes Endocrine: Reports: None Cardiovascular: Reports: None Respiratory: Reports: None Hematological: Reports: None Gastrointestinal: Reports: Pancreatitis ( mandaeism pancreatitis february 2015:: Sheri 06/10/15) Genitourinary: Reports: None Neuro/Psych: Reports: Anxiety, PTSD Musculoskeletal: Reports: None Cancer: Reports: None Last Menstrual Period: now Other Pertinent Past Medical History: PANCREATITIS, PTSD CCE ANX, Drug abuser - Surgical History General Surgical History: Reports: Cholecystectomy - Family History Family History: Reports: Unknown - Social History Smoking Status: Current every day smoker, Light tobacco smoker Hx Substance Use: Yes (OCCASSIONAL MARIJUANA) Alcohol Screening: None - Immunizations Tetanus Shot up to Date: Yes Physical Exam - Physical Exam Appearance: Ill-appearing Ill-appearing: Mild Pain Distress: Moderate (from abdominal cramping) Eyes: ALONZO, EOMI, Conjunctiva clear ENT: Ears normal, Nose normal, Oropharynx normal Neck: Supple Respiratory: Airway patent, Breath sounds clear, Breath sounds equal, Respirations nonlabored GI/: Soft, Tender (mild ) Musculoskeletal: Normal strength, ROM intact, No edema, No calf tenderness Skin: Warm, Dry, Normal color Neurological: Alert, Oriented Psychiatric: Anxious, Depressed Critical Care Note - Critical Care Note Total Time (mins): 0 Course - Course Orders, Labs, Meds: Orders Category Date Time Status Buspirone HCl [Buspar] MEDS 05/11/18 19:36 Discontinued 10 mg PO ONCE STA Dicyclomine Inj [Bentyl] MEDS 05/11/18 19:35 Discontinued 20 mg IM ONCE STA Ondansetron [Zofran Odt] MEDS 05/11/18 19:35 Discontinued 4 mg PO ONCE STA Medications Discontinued Medications Generic Name Dose Route Start Last Admin Trade Name Ignacio PRN Reason Stop Dose Admin Buspirone HCl 10 mg 05/11/18 19:36 05/11/18 20:02 Buspar PO 05/11/18 19:37 10 mg ONCE STA Administration Dicyclomine HCl 20 mg 05/11/18 19:35 05/11/18 19:41 Bentyl IM 05/11/18 19:36 20 mg ONCE STA Administration Ondansetron HCl 4 mg 05/11/18 19:35 05/11/18 19:41 Zofran Odt PO 05/11/18 19:36 4 mg ONCE STA Administration Vital Signs: Temp Pulse Resp BP Pulse Ox 05/11/18 19:11 98.7 F 66 20 137/87 98 Departure - Departure Time of Disposition: 20:45 Disposition: HOME SELF-CARE Discharge Problem: Panic disorder Instructions: Panic Disorder (ED), Anxiety (ED) Condition: Stable Pt referred to PMD for follow-up: Yes IPMP verified?: No Additional Instructions: [facility] so your [facility] can be [facility]. Coming to the ER every day is not a solution to you anxiety STOP using Marijuana as it can cause anxiety and cyclical vomiting. Use Atarax or Buspar for anxiety Use Bentyl fro abdominal cramps Use zofran as needed for nausea. Prescriptions: Buspirone HCl 10 mg PO TID #30 tablet Dicyclomine HCl [Bentyl] 10 mg PO TID PRN #25 capsule PRN Reason: Abdominal Pain Hydroxyzine HCl [Atarax] 25 mg PO TID PRN #25 tablet PRN Reason: Anxety Ondansetron [Zofran Odt] 4 mg PO Q8H PRN #25 tab.rapdis PRN Reason: Nausea / Vomiting Allergies/Adverse Reactions: Allergies No Known Drug Allergies Adverse Reaction (Verified 05/09/18 10:06) Home Medications: Ambulatory Orders Citalopram Hydrobromide [Celexa] 20 mg PO DAILY 05/03/18 Alprazolam [Xanax] 1 mg PO BID #10 tablet 05/09/18 Buspirone HCl 10 mg PO TID #30 tablet 05/11/18 Dicyclomine HCl [Bentyl] 10 mg PO TID PRN #25 capsule 05/11/18 Hydroxyzine HCl [Atarax] 25 mg PO TID PRN #25 tablet 05/11/18 Ondansetron [Zofran Odt] 4 mg PO Q8H PRN #25 tab.rapdis 05/11/18 Disposition Discussed With: Patient
== END 2018-05-11 20:52 | disposition home or self-care (01) ==
LOC: ED 19:09
DX: F41.0 Panic disorder [episodic paroxysmal anxiety] (principal); R10.9 Unspecified abdominal pain; R11.2 Nausea with vomiting, unspecified; F12.90 Cannabis use, unspecified, uncomplicated; F17.210 Nicotine dependence, cigarettes, uncomplicated
CPT/HCPCS: 96372; 99284

== ENCOUNTER 2018-05-12 10:43 | Outpatient (CLI) ==
[2018-05-11 19:10] VITALS: BMI 21.9
== END 2018-05-12 11:02 | disposition short-term general hospital (02) ==
LOC: AMBL 10:43
PROVIDERS: ATTEND Emergency Medicine
DX: R10.9 Unspecified abdominal pain (principal); R11.2 Nausea with vomiting, unspecified; R07.89 Other chest pain; M62.442 Contracture of muscle, left hand; M62.441 Contracture of muscle, right hand; F41.9 Anxiety disorder, unspecified; R00.0 Tachycardia, unspecified; F43.10 Post-traumatic stress disorder, unspecified

== ENCOUNTER 2018-05-14 06:32 | Outpatient (CLI) | END 2018-05-14 06:48 | disposition short-term general hospital (02) | LOC: AMBL 06:32 | PROVIDERS: ATTEND Internal Medicine Geriatric Medicine | DX: F41.9 Anxiety disorder, unspecified (principal); R10.9 Unspecified abdominal pain; R06.4 Hyperventilation ==

== ENCOUNTER 2018-05-16 02:08 | Outpatient (CLI) | END 2018-05-16 02:22 | disposition short-term general hospital (02) | LOC: AMBL 02:08 | PROVIDERS: ATTEND Internal Medicine Geriatric Medicine | DX: R10.9 Unspecified abdominal pain (principal); R07.9 Chest pain, unspecified; R06.4 Hyperventilation ==

== ENCOUNTER 2018-06-24 14:02 | Emergency (ER) ==
[2018-06-24 14:08] VITALS: BP 152/90; TEMP 97.4; BMI 22.7
--- NOTE | 2018-06-24 15:37 | ED.PDOC ---
General ED Provider: Dr. ACACIA CORREA Chief Complaint: Behavioral Complaint Stated Complaint: NAUSEA AND VOMITING, UPPER ABDOMINAL PAIN. Patient is a 22 y/ o female hx of recurrent issues of anxiety, nausea and dry heaves. Was brought by ambulance and her 2nd trip to the ER today. Went to [facility] today and was discharged to home. Records reviewed. Previous 2 CT scans recently and lab which were normal. Time Seen by Physician: 14:25 Mode of Arrival: Ambulance Information Source: Patient, EMT Nursing and Triage Documentation Reviewed and Agree: Yes Does patient meet sepsis criteria?: No System Inflammatory Response Syndrome: Not Applicable Sepsis Protocol: For patient's 13 years and over: Temp is 96.8 and below OR 101 and greater Pulse >90 BPM Resp >20/minute Acutely Altered Mental Status Are patient's symptoms suggestive of a new infection, such as: -Pneumonia -Skin, Soft Tissue -Endocarditis -UTI -Bone, Joint Infection -Implantable Device -Acute Abdominal Infection -Wound Infection -Meningitis -Blood Stream Catheter Infection -Unknown GI Complaint Exam - Abdominal Pain Complaint/Exam Onset: Gradual Duration: 24 hrs Symptoms Are: Still present Timing: Intermittent Initial Severity: Severe Current Severity: Moderate Location of Pain: Diffuse Radiates To: Reports: Back, LLQ Character: Reports: Aching, Cramping, Colicky Aggravating: Reports: None Alleviating: Reports: Medication Associated Signs and Symptoms: Reports: Diaphoresis. Denies: Fever, Cough, Chest pain, Dizziness, Back pain, Constipation, Blood in stool, Dysuria, Urinary frequency, Decreased urine output, Decreased appetite, Vaginal bleeding , Vaginal discharge, Nausea, Vomiting, Diarrhea, Sore throat, Decreased activity AAA Risk Factors: Reports: None Cardiac Risk Factors: Reports: None Ectopic Risk Factors: Reports: None Ovarian Torsion Risk Factors: Reports: None Surgical Obstruction Risk Factors: Reports: None Related Surgical History: Reports: None Abdominal Findings: Present: None Differential Diagnoses: Gastroenteritis, Irritable Bowel Syndrome, Other Review of Systems - Review Of Systems Constitutional: Reports: Weakness, Loss of appetite Eyes: Reports: No symptoms Ears, Nose, Mouth, Throat: Reports: No symptoms Respiratory: Reports: No symptoms Cardiac: Reports: No symptoms GI: Reports: Abdominal pain, Poor appetite, Poor fluid intake, Vomiting : Reports: No symptoms Musculoskeletal: Reports: No symptoms Skin: Reports: No symptoms Neurological: Reports: No symptoms Endocrine: Reports: No symptoms Hematologic/Lymphatic: Reports: No symptoms All Other Systems: Reviewed and Negative Past Medical History - Past Medical History Previously Healthy: No (Psych history) Endocrine: Reports: None Cardiovascular: Reports: None Respiratory: Reports: None Hematological: Reports: None Gastrointestinal: Reports: Pancreatitis ( nondenominational pancreatitis february 2015:: Sheri 06/10/15) Genitourinary: Reports: None Neuro/Psych: Reports: Anxiety, PTSD Musculoskeletal: Reports: None Cancer: Reports: None Last Menstrual Period: 06/06/18 Other Pertinent Past Medical History: PANCREATITIS, PTSD CCE ANX, Drug abuser - Surgical History General Surgical History: Reports: Cholecystectomy - Family History Family History: Reports: Unknown - Social History Smoking Status: Current every day smoker, Light tobacco smoker Hx Substance Use: No Alcohol Screening: None Physical Exam - Physical Exam Appearance: Ill-appearing, Thin Ill-appearing: Moderate Pain Distress: Moderate Eyes: ALONZO, EOMI, Conjunctiva clear ENT: Ears normal, Nose normal, Oropharynx normal Neck: Supple Respiratory: Airway patent, Breath sounds clear, Breath sounds equal, Respirations nonlabored Cardiovascular: RRR, Pulses normal, No rub, No murmur GI/: No masses, Bowel sounds normal, No Organomegaly, Tender, Bowel sounds hypoactive Musculoskeletal: Normal strength Skin: Warm, Dry, Normal color Neurological: Sensation intact, Motor intact, Reflexes intact, Cranial nerves intact, Alert, Oriented Psychiatric: Affect appropriate, Mood appropriate Re-Evaluation - Re-Evaluation Time of Re-Evaluation: 19:50 Status: Improved Critical Care Note - Critical Care Note Total Time (mins): 60 Course - Course Hematology/Chemistry: 06/24/18 15:48 06/24/18 15:48 Orders, Labs, Meds: Lab Review 06/24/18 06/24/18 06/24/18 15:45 15:48 15:48 WBC 11.97 H RBC 4.17 L Hgb 13.0 Hct 38.0 MCV 91.1 MCH 31.2 H MCHC 34.2 RDW Coeff of Giovani 12.7 Plt Count 211 Immature Gran % (Auto) 0.6 Neut % (Auto) 78.4 Lymph % (Auto) 11.9 [place] % (Auto) 8.4 Eos % (Auto) 0.4 Baso % (Auto) 0.3 Immature Gran # (Auto) 0.1 Neut # (Auto) 9.4 H Lymph # (Auto) 1.4 [place] # (Auto) 1.0 Eos # (Auto) 0.1 Baso # (Auto) 0.0 Sodium 137.0 Potassium 3.18 L Chloride 101.5 Carbon Dioxide 29.3 Anion Gap 9.38 BUN 5.3 L Creatinine 0.82 Estimated GFR (MDRD) 87.00 BUN/Creatinine Ratio 6.46 Glucose 102.9 Calcium 9.72 Total Bilirubin 0.39 AST 21.0 ALT 18.9 Alkaline Phosphatase 65.7 Total Protein 7.19 Albumin 4.45 Globulin 2.74 Albumin/Globulin Ratio 1.62 Urine Color Yellow Urine Clarity Clear Urine pH 7.5 Ur Specific [place] 1.015 Urine Protein Negative Urine Glucose (UA) Negative Urine Ketones Trace Urine Blood Trace-lysed Urine Nitrite Negative Urine Bilirubin Negative Urine Urobilinogen 0.2 Ur Leukocyte Esterase Negative Urine Microscopic RBC 0-2 Urine Microscopic WBC 0-2 Ur Squamous Epith Cells 2-5 Amorphous Sediment Trace Urine Bacteria Trace Urine Yeast Trace Orders Category Date Time Status CBC W/ AUTO DIFF Stat LAB 06/24/18 15:48 Completed CMP [COMPREHENSIVE METABOLIC PANEL] Stat LAB 06/24/18 15:48 Completed UA [URINALYSIS C & S IF INDICATED] Stat LAB 06/24/18 15:45 Completed Alprazolam [Xanax] MEDS 06/24/18 19:36 Discontinued 1 mg PO ONCE STA Nalbuphine HCl [Nubain] MEDS 06/24/18 17:44 Discontinued 10 mg IM ONCE STA Promethazine HCl [Phenergan 25 mg/ml Vial] MEDS 06/24/18 17:45 Discontinued 25 mg IM ONCE STA Medications Discontinued Medications Generic Name Dose Route Start Last Admin Trade Name Markusq PRN Reason Stop Dose Admin Alprazolam 1 mg 06/24/18 19:36 06/24/18 19:44 Xanax PO 06/24/18 19:37 1 mg ONCE STA Administration Nalbuphine HCl 10 mg 06/24/18 17:44 06/24/18 17:57 Nubain IM 06/24/18 17:45 10 mg ONCE STA Administration Promethazine HCl 25 mg 06/24/18 17:45 06/24/18 17:55 Phenergan 25 Mg/Ml Vial IM 06/24/18 17:46 25 mg ONCE STA Administration Vital Signs: Temp Pulse Resp BP Pulse Ox 06/24/18 14:02 97.4 F L 81 20 152/90 H 100 Departure - Departure Time of Disposition: 19:40 Disposition: HOME SELF-CARE Discharge Problem: Panic anxiety syndrome, Vomiting, Irritable bowel syndrome Instructions: Anxiety (ED) Condition: Fair Pt referred to PMD for follow-up: Yes IPMP verified?: Yes Additional Instructions: REmain on prescribed tx follow up with pcp in next week Allergies/Adverse Reactions: Allergies No Known Drug Allergies Adverse Reaction (Verified 06/25/18 07:53) Home Medications: Ambulatory Orders Alprazolam [Xanax] 1 mg PO BID #10 tablet 05/09/18 Escitalopram Oxalate [Lexapro] 20 mg PO DAILY 06/24/18 Disposition Discussed With: Patient
[2018-06-24] MEDS: PHENERGAN 25 MG/ML VIAL IM STA (17:55)
[2018-06-24] MEDS: NUBAIN IM STA (17:57)
[2018-06-24] MEDS: XANAX PO STA (19:44)
== END 2018-06-24 19:45 | disposition home or self-care (01) ==
LOC: ED 14:02
DX: F41.0 Panic disorder [episodic paroxysmal anxiety] (principal); R11.10 Vomiting, unspecified; K58.9 Irritable bowel syndrome, unspecified; F17.210 Nicotine dependence, cigarettes, uncomplicated
CPT/HCPCS: 36415; 80053; 81001; 85025; 96372; 99283

== ENCOUNTER 2018-06-25 07:50 | Emergency (ER) ==
[2018-06-25 07:53] VITALS: BP 135/91; TEMP 96.5; BMI 22.7
--- NOTE | 2018-06-25 09:40 | ED.PDOC ---
General ED Provider: Dr. ACACIA MCCARTHY-ER Chief Complaint: Behavioral Complaint Stated Complaint: my anxiety is bad Time Seen by Physician: 09:38 Mode of Arrival: Ambulance Information Source: Patient Exam Limitations: No limitations Nursing and Triage Documentation Reviewed and Agree: Yes Does patient meet sepsis criteria?: No System Inflammatory Response Syndrome: Not Applicable Sepsis Protocol: For patient's 13 years and over: Temp is 96.8 and below OR 101 and greater Pulse >90 BPM Resp >20/minute Acutely Altered Mental Status Are patient's symptoms suggestive of a new infection, such as: -Pneumonia -Skin, Soft Tissue -Endocarditis -UTI -Bone, Joint Infection -Implantable Device -Acute Abdominal Infection -Wound Infection -Meningitis -Blood Stream Catheter Infection -Unknown Psychological Complaint Exam - Psychiatric Complaint/Exam Patient Complains Of: Present: Other (anxiety) Symptoms Are: Still present Initial Severity: Mild Current Severity: Moderate Character: Present: Anxious Aggravating: Reports: Recent stress Associated Signs And Symptoms: Denies: Hostile, Confused, Hallucinating, Paranoid behavior, Sleep disturbance, Appetite change Related History: Denies: Suicidal thoughts, Suicidal plan, Suicidal gestures, Homicidal thoughts Patient In Custody Of Police: No Social Withdrawal Present: No Social Isolation Present: No Prior Suicide Attempt: No Injury From Prior Suicide Attempt: No Patient Uncooperative For Exam: No Mood: Present: Anxious Appearance: Present: Clean Insight: Present: Good Memory: Intact Judgement: Normal Danger To Others: No Patient Medically Stable For: Psych evaluation, Referral, Transfer Differential Diagnoses: Anxiety Review of Systems - Review Of Systems Constitutional: Reports: No symptoms Eyes: Reports: No symptoms Ears, Nose, Mouth, Throat: Reports: No symptoms Respiratory: Reports: No symptoms Cardiac: Reports: No symptoms GI: Reports: No symptoms : Reports: No symptoms Musculoskeletal: Reports: No symptoms Skin: Reports: No symptoms Neurological: Reports: Anxiety Endocrine: Reports: No symptoms Hematologic/Lymphatic: Reports: No symptoms All Other Systems: Reviewed and Negative Past Medical History - Past Medical History Previously Healthy: No (Psych history) Endocrine: Reports: None Cardiovascular: Reports: None Respiratory: Reports: None Hematological: Reports: None Gastrointestinal: Reports: Pancreatitis ( church pancreatitis february 2015:: Sheri 06/10/15) Genitourinary: Reports: None Neuro/Psych: Reports: Anxiety, PTSD Musculoskeletal: Reports: None Cancer: Reports: None Last Menstrual Period: 06/06/18 Other Pertinent Past Medical History: PANCREATITIS, PTSD CCE ANX, Drug abuser - Surgical History General Surgical History: Reports: Cholecystectomy - Family History Family History: Reports: Unknown - Social History Smoking Status: Current every day smoker, Light tobacco smoker Hx Substance Use: No Alcohol Screening: None Physical Exam - Physical Exam Appearance: Well-appearing Eyes: ALONZO, EOMI, Conjunctiva clear ENT: Ears normal, Nose normal, Oropharynx normal Neck: Supple Respiratory: Airway patent Cardiovascular: RRR GI/: Soft, Nontender, No masses, Bowel sounds normal, No Organomegaly Musculoskeletal: Normal strength, ROM intact, No edema, No calf tenderness Skin: Warm, Dry, Normal color Neurological: Sensation intact, Motor intact, Reflexes intact, Cranial nerves intact, Alert, Oriented Psychiatric: Affect appropriate, Mood appropriate Critical Care Note - Critical Care Note Total Time (mins): 0 Course - Course Hematology/Chemistry: 06/25/18 08:00 06/25/18 08:13 Orders, Labs, Meds: Lab Review 06/25/18 06/25/18 06/25/18 08:00 08:00 08:13 WBC 9.19 RBC 4.12 L Hgb 12.8 Hct 37.7 MCV 91.5 MCH 31.1 H MCHC 34.0 RDW Coeff of Giovani 12.8 Plt Count 203 Immature Gran % (Auto) 0.4 Neut % (Auto) 60.8 Lymph % (Auto) 29.3 [place] % (Auto) 7.3 Eos % (Auto) 1.7 Baso % (Auto) 0.5 Immature Gran # (Auto) 0.0 Neut # (Auto) 5.6 Lymph # (Auto) 2.7 [place] # (Auto) 0.7 Eos # (Auto) 0.2 Baso # (Auto) 0.1 ESR D-Dimer (Manual) Sodium 135.5 Potassium 3.02 L Chloride 98.6 Carbon Dioxide 29.0 Anion Gap 10.92 BUN 11.0 Creatinine 0.85 Estimated GFR (MDRD) 84.00 BUN/Creatinine Ratio 12.94 Glucose 94.1 Calcium 9.59 Total Bilirubin 0.49 AST 24.1 ALT 19.2 Alkaline Phosphatase 65.8 Total Creatine Kinase 39.0 Troponin I < 0.012 Total Protein 7.00 Albumin 4.29 Globulin 2.71 Albumin/Globulin Ratio 1.58 Amylase 84.5 Lipase 44.8 Serum , Qual Urine Color Yellow Urine Clarity Clear Urine pH 6.0 Ur Specific [place] 1.025 Urine Protein 1+ Urine Glucose (UA) Negative Urine Ketones Trace Urine Blood 1+ Urine Nitrite Negative Urine Bilirubin 2+ Urine Urobilinogen 0.2 Ur Leukocyte Esterase Negative Urine Microscopic RBC 0-2 Urine Microscopic WBC 2-5 Ur Squamous Epith Cells 10-20 Urine Bacteria 2+ Urine Mucus 2+ 06/25/18 06/25/18 06/25/18 08:13 08:13 08:13 WBC RBC Hgb Hct MCV MCH MCHC RDW Coeff of Giovani Plt Count Immature Gran % (Auto) Neut % (Auto) Lymph % (Auto) [place] % (Auto) Eos % (Auto) Baso % (Auto) Immature Gran # (Auto) Neut # (Auto) Lymph # (Auto) [place] # (Auto) Eos # (Auto) Baso # (Auto) ESR 5 D-Dimer (Manual) 515.47 Sodium Potassium Chloride Carbon Dioxide Anion Gap BUN Creatinine Estimated GFR (MDRD) BUN/Creatinine Ratio Glucose Calcium Total Bilirubin AST ALT Alkaline Phosphatase Total Creatine Kinase Troponin I Total Protein Albumin Globulin Albumin/Globulin Ratio Amylase Lipase Serum , Qual Negative Urine Color Urine Clarity Urine pH Ur Specific Casey Urine Protein Urine Glucose (UA) Urine Ketones Urine Blood Urine Nitrite Urine Bilirubin Urine Urobilinogen Ur Leukocyte Esterase Urine Microscopic RBC Urine Microscopic WBC Ur Squamous Epith Cells Urine Bacteria Urine Mucus Orders Category Date Time Status EKG-(ED ONLY) Stat CARDIO 06/25/18 07:58 Completed Mental Health Consult [ED MENTAL HEALTH CONSULT] .ONCE EMERGENCY 06/25/18 07: 58 Active AMYLASE Stat LAB 06/25/18 08:13 Completed CBC W/ AUTO DIFF Stat LAB 06/25/18 08:00 Completed COMPREHENSIVE METABOLIC PANEL Stat LAB 06/25/18 08:13 Completed CREATINE KINASE Stat LAB 06/25/18 08:13 Completed D-DIMER Stat LAB 06/25/18 08:13 Completed ESR Stat LAB 06/25/18 08:13 Completed LIPASE Stat LAB 06/25/18 08:13 Completed SERUM Stat LAB 06/25/18 08:13 Completed TROPONIN I Stat LAB 06/25/18 08:13 Completed URINALYSIS C & S IF INDICATED Stat LAB 06/25/18 08:00 Completed URINE CULTURE Stat LAB 06/25/18 08:00 Received URINE DRUG SCREEN (RAPID FOR ED) [DRUG SCREEN, URINE, LAB 06/25/18 08:00 Received RAPID] Stat Potassium Chloride [K-Dur] MEDS 06/25/18 09:42 Stat 40 meq PO ONCE STA CXR [CHEST, 1V AP ONLY] Stat RADS 06/25/18 07:58 Taken KUB [ABDOMEN 1 VIEW] Stat RADS 06/25/18 07:58 Taken Vital Signs: Temp Pulse Resp BP Pulse Ox 06/25/18 07:51 96.5 F L 84 20 135/91 H 98 Departure - Departure Time of Disposition: 09:41 Disposition: AMA Discharge Problem: Anxiety Instructions: Anxiety (ED) Condition: Stable Pt referred to PMD for follow-up: Yes IPMP verified?: No Additional Instructions: if you change your mind about getting your anxiety treated may return Allergies/Adverse Reactions: Allergies No Known Drug Allergies Adverse Reaction (Verified 06/25/18 07:53) Home Medications: Ambulatory Orders Alprazolam [Xanax] 1 mg PO BID #10 tablet 05/09/18 Escitalopram Oxalate [Lexapro] 20 mg PO DAILY 06/24/18 Disposition Discussed With: Patient
[2018-06-25] MEDS ORDERED: K-DUR PO STA (09:42)
--- NOTE | 2018-06-25 12:17 | DI ---
EXAMINATION: AP supine view of the abdomen. HISTORY: Abdominal pain COMPARISON: Abdomen from 06/21/2018 FINDINGS: No bowel dilatation, pathologic radio-opacities, free air, or portal venous gas are detect ed. No acute osseous abnormalities. There are no suspicious masses or calcifications. There is a fair amount of retained stool in the rectosigmoid area. Previously noted high attenuation material in th e right pelvis is no longer seen. There has been prior cholecystectomy. IMPRESSION: 1. No acute abnormality in the abdomen or pelvis. 2. Fair amount of retained stool in the rectosigmoid area.
--- NOTE | 2018-06-25 12:18 | DI ---
EXAM: Single view chest COMPARISON: Chest Xray from 03/28/2018 HISTORY: Chest pain FINDINGS: Lungs are clear with no lobar consolidation, failure, large effusion or significant atelec tasis. Cardiac and mediastinal silhouettes show no acute abnormality. No acute soft tissue or osseo us abnormalities. IMPRESSION: No active disease.
== END 2018-06-25 09:53 | disposition left against medical advice (07) ==
LOC: ED 07:50
DX: F41.9 Anxiety disorder, unspecified (principal); F17.210 Nicotine dependence, cigarettes, uncomplicated
CPT/HCPCS: 36415; 80053; 80306; 81001; 82150; 82550; 83690; 84484; 84703; 85025; 85379; 85651; 87086; 93005; 93010; 99284

== ENCOUNTER 2018-09-21 21:06 | Outpatient (CLI) ==
[2018-09-21 21:41] VITALS: BMI 21.1
== END 2018-09-21 21:15 | disposition critical access hospital (66) ==
LOC: AMBL 21:06
PROVIDERS: ATTEND Internal Medicine Geriatric Medicine
DX: R07.9 Chest pain, unspecified (principal); R10.9 Unspecified abdominal pain; R11.10 Vomiting, unspecified; F41.9 Anxiety disorder, unspecified; R00.0 Tachycardia, unspecified

== ENCOUNTER 2018-09-21 21:19 | Emergency (ER) ==
[2018-09-21] MEDS ORDERED: TORADOL IM STA (21:21)
[2018-09-21] MEDS ORDERED: COMPAZINE IM STA (21:21)
[2018-09-21 21:24] VITALS: BP 110/73
[2018-09-21 21:41] VITALS: TEMP 99; BMI 21.1
[2018-09-21] MEDS ORDERED: NUBAIN IM STA (22:13)
--- NOTE | 2018-09-21 22:22 | ED.PDOC ---
General ED Provider: Dr. CHRISS QURESHI Chief Complaint: Abdominal Pain Stated Complaint: complains of abdominal pain that started 2 days ago. States she was seen at [facility] Time Seen by Physician: 22:12 Mode of Arrival: Ambulance Information Source: Patient Exam Limitations: No limitations Nursing and Triage Documentation Reviewed and Agree: Yes Does patient meet sepsis criteria?: No System Inflammatory Response Syndrome: Not Applicable Sepsis Protocol: For patient's 13 years and over: Temp is 96.8 and below OR 101 and greater Pulse >90 BPM Resp >20/minute Acutely Altered Mental Status Are patient's symptoms suggestive of a new infection, such as: -Pneumonia -Skin, Soft Tissue -Endocarditis -UTI -Bone, Joint Infection -Implantable Device -Acute Abdominal Infection -Wound Infection -Meningitis -Blood Stream Catheter Infection -Unknown Review of Systems - Review Of Systems Constitutional: Reports: No symptoms Eyes: Reports: No symptoms Ears, Nose, Mouth, Throat: Reports: No symptoms Respiratory: Reports: Cough Cardiac: Reports: No symptoms GI: Reports: Abdominal pain, Nausea, Poor appetite, Vomiting : Reports: No symptoms Musculoskeletal: Reports: No symptoms Skin: Reports: No symptoms Neurological: Reports: No symptoms Endocrine: Reports: No symptoms Hematologic/Lymphatic: Reports: No symptoms All Other Systems: Reviewed and Negative Past Medical History - Past Medical History Previously Healthy: No (Psych history) Endocrine: Reports: None Cardiovascular: Reports: None Respiratory: Reports: None Hematological: Reports: None Gastrointestinal: Reports: Pancreatitis ( [facility] pancreatitis february 2015:: [facility] 06/10/15) Genitourinary: Reports: None Neuro/Psych: Reports: Anxiety, PTSD Musculoskeletal: Reports: None Cancer: Reports: None Last Menstrual Period: now Other Pertinent Past Medical History: PANCREATITIS, PTSD CCE ANX, Drug abuser - Surgical History General Surgical History: Reports: Cholecystectomy - Family History Family History: Reports: Unknown - Social History Smoking Status: Current every day smoker, Heavy tobacco smoker Hx Substance Use: Yes (states, "occasional marijuana) Alcohol Screening: None - Immunizations Tetanus Shot up to Date: Yes Physical Exam - Physical Exam Appearance: Ill-appearing, Thin Ill-appearing: Severe Pain Distress: Severe Eyes: ALONZO Neck: Supple Respiratory: Airway patent, Breath sounds clear, Breath sounds equal, Respirations nonlabored Cardiovascular: RRR, Pulses normal, No rub, No murmur GI/: Bowel sounds normal, Tender Musculoskeletal: Normal strength, ROM intact, No edema, No calf tenderness Skin: Warm, Dry, Normal color Neurological: Sensation intact, Motor intact, Cranial nerves intact, Alert, Oriented Psychiatric: Anxious, Depressed Critical Care Note - Critical Care Note Total Time (mins): 0 Course - Course Hematology/Chemistry: 09/21/18 22:49 09/21/18 22:49 Orders, Labs, Meds: Lab Review 09/21/18 09/21/18 22:49 22:49 WBC 13.27 H RBC 4.31 Hgb 13.5 Hct 38.0 MCV 88.2 MCH 31.3 H MCHC 35.5 H RDW Coeff of Giovani 13.0 Plt Count 222 Immature Gran % (Auto) 0.4 Neut % (Auto) 76.6 Lymph % (Auto) 13.7 [place] % (Auto) 9.1 Eos % (Auto) 0.0 Baso % (Auto) 0.2 Immature Gran # (Auto) 0.1 Neut # (Auto) 10.2 H Lymph # (Auto) 1.8 [place] # (Auto) 1.2 Eos # (Auto) 0.0 Baso # (Auto) 0.0 Sodium 137.2 Potassium 3.40 L Chloride 100.8 Carbon Dioxide 22.8 Anion Gap 17.00 BUN 17.4 H Creatinine 0.82 Estimated GFR (MDRD) 87.00 BUN/Creatinine Ratio 21.21 Glucose 97.0 Calcium 9.59 Total Bilirubin 0.55 AST 28.4 ALT 22.7 Alkaline Phosphatase 78.8 Total Protein 7.62 Albumin 4.49 Globulin 3.13 Albumin/Globulin Ratio 1.43 Amylase 99.2 Lipase 70.7 Orders Category Date Time Status EKG-(ED ONLY) Stat CARDIO 09/21/18 23:00 Completed AMYLASE Stat LAB 09/21/18 22:49 Completed CBC W/ AUTO DIFF Stat LAB 09/21/18 22:49 Completed COMPREHENSIVE METABOLIC PANEL Stat LAB 09/21/18 22:49 Completed LIPASE Stat LAB 09/21/18 22:49 Completed Ketorolac Tromethamine [Toradol] MEDS 09/21/18 21:21 Discontinued 60 mg IM ONCE STA Mag-Al Plus//Lidocaine [Gi Cocktail] MEDS 09/21/18 23:07 Discontinued 30 ml PO ONCE STA Nalbuphine HCl [Nubain] MEDS 09/21/18 22:13 Discontinued 10 mg IM ONCE STA Prochlorperazine Edisylate [Compazine] MEDS 09/21/18 21:21 Discontinued 10 mg IM ONCE STA Medications Discontinued Medications Generic Name Dose Route Start Last Admin Trade Name Freq PRN Reason Stop Dose Admin Al Hydroxide/Mg Hydroxide 30 ml 09/21/18 23:07 09/21/18 23:11 Gi Cocktail PO 09/21/18 23:08 30 ml ONCE STA Administration Ketorolac Tromethamine 60 mg 09/21/18 21:21 09/21/18 21:40 Toradol IM 09/21/18 21:22 60 mg ONCE STA Administration Nalbuphine HCl 10 mg 09/21/18 22:13 09/21/18 22:36 Nubain IM 09/21/18 22:14 10 mg ONCE STA Administration Prochlorperazine Edisylate 10 mg 09/21/18 21:21 09/21/18 21:40 Compazine IM 09/21/18 21:22 10 mg ONCE STA Administration Vital Signs: Temp Pulse Resp BP Pulse Ox 09/21/18 21:30 99 F 91 H 22 110/73 100 09/21/18 21:24 99.0 F 99 H 17 110/73 100 Departure - Departure Time of Disposition: 23:27 Disposition: HOME SELF-CARE Discharge Problem: Cyclical vomiting Qualifiers: Vomiting Intractability: non-intractable Nausea presence: with nausea Qualified Code(s): G43.A0 - Cyclical vomiting, not intractable Instructions: Cyclic Vomiting Syndrome (ED) Condition: Stable Pt referred to PMD for follow-up: Yes IPMP verified?: No Additional Instructions: take Medications as prescribed STOP using marijuana Follow up with PCP in 3 days Prescriptions: Dicyclomine HCl [Bentyl] 10 mg PO TID PRN #20 capsule PRN Reason: Abdominal Pain Ondansetron [Zofran Odt] 4 mg PO Q8H #12 tab.rapdis Allergies/Adverse Reactions: Allergies No Known Drug Allergies Adverse Reaction (Verified 06/25/18 07:53) Home Medications: Ambulatory Orders Escitalopram Oxalate [Lexapro] 20 mg PO DAILY 06/24/18 Alprazolam [Xanax] 2 mg PO BID 09/21/18 Bupropion HCl [Wellbutrin Xl] 150 mg PO DAILY 09/21/18 Dicyclomine HCl [Bentyl] 10 mg PO TID PRN #20 capsule 09/21/18 Ondansetron [Zofran Odt] 4 mg PO Q8H #12 tab.rapdis 09/21/18 Disposition Discussed With: Patient
[2018-09-21] MEDS ORDERED: GI COCKTAIL PO STA (23:07)
== END 2018-09-21 23:35 | disposition home or self-care (01) ==
LOC: ED 21:19
DX: G43.A0 Cyclical vomiting, in migraine, not intractable (principal); R10.9 Unspecified abdominal pain; F17.210 Nicotine dependence, cigarettes, uncomplicated; F12.10 Cannabis abuse, uncomplicated; Z79.899 Other long term (current) drug therapy; Z87.19 Personal history of other diseases of the digestive system
CPT/HCPCS: 36415; 80053; 82150; 83690; 85025; 93005; 93010; 96372; 99283

== ENCOUNTER 2018-09-23 13:49 | Outpatient (CLI) | END 2018-09-23 14:07 | disposition short-term general hospital (02) | LOC: AMBL 13:49 | PROVIDERS: ATTEND Internal Medicine Geriatric Medicine | DX: F41.9 Anxiety disorder, unspecified (principal); R11.10 Vomiting, unspecified; R06.4 Hyperventilation; Z91.14 Patient's other noncompliance with medication regimen ==

== ENCOUNTER 2018-10-14 04:15 | Outpatient (CLI) | END 2018-10-14 04:32 | disposition short-term general hospital (02) | LOC: AMBL 04:15 | PROVIDERS: ATTEND Internal Medicine Geriatric Medicine | DX: R10.84 Generalized abdominal pain (principal); R11.2 Nausea with vomiting, unspecified; F41.9 Anxiety disorder, unspecified; Z79.899 Other long term (current) drug therapy; R00.0 Tachycardia, unspecified ==

== ENCOUNTER 2018-10-16 12:40 | Outpatient (CLI) | END 2018-10-16 12:59 | disposition short-term general hospital (02) | LOC: AMBL 12:40 | PROVIDERS: ATTEND Internal Medicine | DX: R10.84 Generalized abdominal pain (principal); R11.2 Nausea with vomiting, unspecified ==

== ENCOUNTER 2018-10-26 16:01 | Outpatient (CLI) | END 2018-10-26 16:22 | disposition short-term general hospital (02) | LOC: AMBL 16:01 | PROVIDERS: ATTEND Internal Medicine | DX: R10.9 Unspecified abdominal pain (principal); R11.2 Nausea with vomiting, unspecified ==

== ENCOUNTER 2018-12-17 06:40 | Outpatient (CLI) | END 2018-12-17 06:57 | disposition short-term general hospital (02) | LOC: AMBL 06:40 | PROVIDERS: ATTEND Family Medicine | DX: R11.2 Nausea with vomiting, unspecified (principal); F41.9 Anxiety disorder, unspecified; R07.0 Pain in throat; R06.4 Hyperventilation; R52 Pain, unspecified; Z91.14 Patient's other noncompliance with medication regimen ==

== ENCOUNTER 2019-01-13 10:56 | Emergency (ER) ==
[2019-01-13 11:03] VITALS: BP 147/87; TEMP 98.4; BMI 20.3
--- NOTE | 2019-01-13 12:08 | ED.PDOC ---
General ED Provider: Dr. ACACIA CORREA Chief Complaint: Behavioral Complaint Stated Complaint: Very anxious; nausea and vomiting.Has been to [facility] and [facility] in past 2 days with similar symptoms Time Seen by Physician: 11:50 Mode of Arrival: Walk-In Information Source: Patient Exam Limitations: Clinical condition, Other (mental status-very anxious) Primary Care Provider: ACACIA MCCARTHY Seen Within Last 72 Hours for Same Complaint By: ED Nursing and Triage Documentation Reviewed and Agree: Yes Does patient meet sepsis criteria?: No System Inflammatory Response Syndrome: Pulse >90 BPM, Not Applicable Sepsis Protocol: For patient's 13 years and over: Temp is 96.8 and below OR 101 and greater Pulse >90 BPM Resp >20/minute Acutely Altered Mental Status Are patient's symptoms suggestive of a new infection, such as: -Pneumonia -Skin, Soft Tissue -Endocarditis -UTI -Bone, Joint Infection -Implantable Device -Acute Abdominal Infection -Wound Infection -Meningitis -Blood Stream Catheter Infection -Unknown Psychological Complaint Exam - Psychiatric Complaint/Exam Patient Complains Of: Present: Other (Feels anxious and has abdom cramping assoc IBS) Onset/Duration: 48 Symptoms Are: Still present Timing: Intermittent Episodes Lasting: Hours Initial Severity: Moderate Current Severity: Moderate Character: Present: Depressed, Anxious Aggravating: Reports: Recent stress, Medication noncompliance Associated Signs And Symptoms: Reports: Appetite change Related History: Reports: Drug ingestion. Denies: Suicidal thoughts Completed Suicide Risk Factors: None Patient In Custody Of Police: No Social Withdrawal Present: No Social Isolation Present: No Prior Suicide Attempt: No Injury From Prior Suicide Attempt: No Related Surgical History: Reports: None Patient Uncooperative For Exam: No Mood: Present: Depressed, Angry, Guarded Appearance: Present: Clean Thought Process: Present: Illogical Insight: Present: Poor Memory: Impaired Danger To Others: No Patient Medically Stable For: Psych evaluation Differential Diagnoses: Anxiety Review of Systems - Review Of Systems Constitutional: Reports: No symptoms Eyes: Reports: No symptoms Ears, Nose, Mouth, Throat: Reports: No symptoms Respiratory: Reports: No symptoms Cardiac: Reports: No symptoms GI: Reports: Abdominal pain, Diarrhea, Poor appetite, Poor fluid intake : Reports: No symptoms Musculoskeletal: Reports: No symptoms Skin: Reports: No symptoms Neurological: Reports: Anxiety, Depressed, Emotional problems Endocrine: Reports: No symptoms Hematologic/Lymphatic: Reports: No symptoms All Other Systems: Reviewed and Negative Past Medical History - Past Medical History Previously Healthy: No (Psych history) Endocrine: Reports: None Cardiovascular: Reports: None Respiratory: Reports: None Hematological: Reports: None Gastrointestinal: Reports: Pancreatitis ( [facility] pancreatitis february 2015:: [facility] 06/10/15) Genitourinary: Reports: None Neuro/Psych: Reports: Anxiety, PTSD Musculoskeletal: Reports: None Cancer: Reports: None Last Menstrual Period: 12/21/18 Other Pertinent Past Medical History: PANCREATITIS, PTSD CCE ANX, Drug abuser - Surgical History General Surgical History: Reports: Cholecystectomy - Family History Family History: Reports: Unknown - Social History Smoking Status: Current every day smoker, Heavy tobacco smoker Hx Substance Use: Yes (states, "occasional marijuana) Alcohol Screening: None - Immunizations Tetanus Shot up to Date: Yes Physical Exam - Physical Exam Appearance: Ill-appearing Ill-appearing: Mild Pain Distress: Mild Eyes: ALONZO, EOMI, Conjunctiva clear ENT: Ears normal, Nose normal, Oropharynx normal Neck: Supple Respiratory: Airway patent, Breath sounds clear, Breath sounds equal, Respirations nonlabored Cardiovascular: RRR, Pulses normal, No rub, No murmur GI/: Soft, No masses, Bowel sounds normal, No Organomegaly, Tender, Bowel sounds hyperactive Musculoskeletal: Normal strength, ROM intact, No edema, No calf tenderness Skin: Warm, Dry, Normal color Neurological: Sensation intact, Motor intact, Reflexes intact, Cranial nerves intact, Alert, Oriented Psychiatric: Affect appropriate, Mood appropriate Critical Care Note - Critical Care Note Total Time (mins): 0 Course - Course Hematology/Chemistry: 01/13/19 12:24 01/13/19 12:24 Orders, Labs, Meds: Lab Review 01/13/19 01/13/19 01/13/19 12:24 12:24 12:35 WBC 13.75 H RBC 4.41 Hgb 13.6 Hct 40.1 MCV 90.9 MCH 30.8 MCHC 33.9 RDW Coeff of Giovani 13.7 Plt Count 255 Immature Gran % (Auto) 0.5 Neut % (Auto) 85.2 Lymph % (Auto) 7.3 L [place] % (Auto) 6.7 Eos % (Auto) 0.0 Baso % (Auto) 0.3 Immature Gran # (Auto) 0.1 Neut # (Auto) 11.7 H Lymph # (Auto) 1.0 [place] # (Auto) 0.9 Eos # (Auto) 0.0 Baso # (Auto) 0.0 Sodium 139.9 Potassium 3.55 Chloride 100.2 Carbon Dioxide 25.4 Anion Gap 17.85 BUN 20.9 H Creatinine 0.70 Estimated GFR (MDRD) 104.00 BUN/Creatinine Ratio 29.85 Glucose 123.5 H Calcium 10.05 Total Bilirubin 0.65 AST 47.0 H ALT 53.6 H Alkaline Phosphatase 76.1 Total Protein 8.06 Albumin 5.08 H Globulin 2.98 Albumin/Globulin Ratio 1.70 Amylase 143.6 H Lipase 135.9 Urine Color Urine Clarity Urine pH Ur Specific Ruby Urine Protein Urine Glucose (UA) Urine Ketones Urine Blood Urine Nitrite Urine Bilirubin Urine Urobilinogen Ur Leukocyte Esterase Urine Microscopic RBC Ur Squamous Epith Cells Urine Opiates Screen Negative Ur Oxycodone Screen Negative Urine Methadone Screen Negative Ur Propoxyphene Screen Negative Ur Barbiturates Screen Negative U Tricyclic Antidepress Negative Ur Phencyclidine Scrn Negative Ur Amphetamine Screen Negative U Methamphetamines Scrn Negative U Benzodiazepines Scrn Positive Urine Cocaine Screen Negative U Cannabinoids Screen Positive 01/13/19 12:35 WBC RBC Hgb Hct MCV MCH MCHC RDW Coeff of Giovani Plt Count Immature Gran % (Auto) Neut % (Auto) Lymph % (Auto) [place] % (Auto) Eos % (Auto) Baso % (Auto) Immature Gran # (Auto) Neut # (Auto) Lymph # (Auto) [place] # (Auto) Eos # (Auto) Baso # (Auto) Sodium Potassium Chloride Carbon Dioxide Anion Gap BUN Creatinine Estimated GFR (MDRD) BUN/Creatinine Ratio Glucose Calcium Total Bilirubin AST ALT Alkaline Phosphatase Total Protein Albumin Globulin Albumin/Globulin Ratio Amylase Lipase Urine Color Yellow Urine Clarity Turbid Urine pH 8.0 Ur Specific Ruby 1.015 Urine Protein 1+ Urine Glucose (UA) Negative Urine Ketones 1+ Urine Blood Trace-intact Urine Nitrite Negative Urine Bilirubin Negative Urine Urobilinogen 0.2 Ur Leukocyte Esterase Negative Urine Microscopic RBC 0-2 Ur Squamous Epith Cells Not present Urine Opiates Screen Ur Oxycodone Screen Urine Methadone Screen Ur Propoxyphene Screen Ur Barbiturates Screen U Tricyclic Antidepress Ur Phencyclidine Scrn Ur Amphetamine Screen U Methamphetamines Scrn U Benzodiazepines Scrn Urine Cocaine Screen U Cannabinoids Screen Orders Category Date Time Status IV [ED IV/MEDIPORT/POWERPORT] .ONCE EMERGENCY 01/13/19 14:44 Active AMYLASE Stat LAB 01/13/19 12:24 Completed CBC W/ AUTO DIFF Stat LAB 01/13/19 12:24 Completed CMP [COMPREHENSIVE METABOLIC PANEL] Stat LAB 01/13/19 12:24 Completed LIPASE Stat LAB 01/13/19 12:24 Completed UA [URINALYSIS C & S IF INDICATED] Stat LAB 01/13/19 12:35 Completed URINE DRUG SCREEN (RAPID FOR ED) [DRUG SCREEN, URINE, LAB 01/13/19 12:35 Completed RAPID] Stat 0.9 % Sodium Chloride [Saline Flush] MEDS 01/13/19 14:44 Discontinued 1 syr IVF PRN PRN Famotidine Inj [Pepcid] MEDS 01/13/19 14:46 Discontinued 20 mg IVP ONCE STA Lorazepam [Ativan] MEDS 01/13/19 15:09 Discontinued 1 mg IVP ONCE STA Ondansetron [Zofran Odt] MEDS 01/13/19 12:13 Discontinued 4 mg PO ONCE STA Promethazine HCl [Phenergan 25 mg/ml Vial] MEDS 01/13/19 13:34 Discontinued 25 mg IM ONCE STA Sodium Chloride 0.9% [Sodium Chloride] 1,000 ml MEDS 01/13/19 14:44 Discontinued IV BOLUS Medications Discontinued Medications Generic Name Dose Route Start Last Admin Trade Name Freq PRN Reason Stop Dose Admin Famotidine 20 mg 01/13/19 14:46 01/13/19 15:17 Pepcid IVP 01/13/19 14:47 20 mg ONCE STA Administration Sodium Chloride 1,000 mls @ 1,000 mls/hr 01/13/19 14:44 01/13/19 15:17 Sodium Chloride IV 01/13/19 15:43 1,000 mls/hr BOLUS STA Administration Lorazepam 1 mg 01/13/19 15:09 01/13/19 15:15 Ativan IVP 01/13/19 15:10 1 mg ONCE STA Administration Ondansetron HCl 4 mg 01/13/19 12:13 01/13/19 12:29 Zofran Odt PO 01/13/19 12:14 4 mg ONCE STA Administration Promethazine HCl 25 mg 01/13/19 13:34 01/13/19 13:44 Phenergan 25 Mg/Ml Vial IM 01/13/19 13:35 25 mg ONCE STA Administration Sodium Chloride 1 syr 01/13/19 14:44 Saline Flush IVF PRN PRN To flush IV Vital Signs: Temp Pulse Resp BP Pulse Ox 01/13/19 10:57 98.4 F 93 H 16 147/87 H 99 Departure - Departure Time of Disposition: 16:50 Disposition: HOME SELF-CARE Discharge Problem: Acute anxiety, Gastritis, Panic anxiety syndrome Instructions: Gastritis (ED), Dehydration (ED), Anxiety (ED) Condition: Good Pt referred to PMD for follow-up: Yes IPMP verified?: No Additional Instructions: Remain on maintenance meds Follow up Mental health Prescriptions: Promethazine HCl [Phenergan Tab] 25 mg PO Q8H #15 tablet Allergies/Adverse Reactions: Allergies No Known Drug Allergies Adverse Reaction (Verified 06/25/18 07:53) No Known Drug Allergies Adverse Reaction (Uncoded 07/01/13 07:10) Home Medications: Ambulatory Orders Escitalopram Oxalate [Lexapro] 20 mg PO DAILY 06/24/18 Alprazolam [Xanax] 2 mg PO BID 09/21/18 Bupropion HCl [Wellbutrin Xl] 150 mg PO DAILY 09/21/18 Dicyclomine HCl [Bentyl] 10 mg PO TID PRN #20 capsule 09/21/18 Ondansetron [Zofran Odt] 4 mg PO Q8H #12 tab.rapdis 09/21/18 Promethazine HCl [Phenergan Tab] 25 mg PO Q8H #15 tablet 01/13/19 Disposition Discussed With: Patient
[2019-01-13] MEDS ORDERED: ZOFRAN ODT PO STA (12:13)
[2019-01-13] MEDS ORDERED: PHENERGAN 25 MG/ML VIAL IM STA (13:34)
[2019-01-13] MEDS ORDERED: SODIUM CHLORIDE 1,000 ML IV STA (14:44)
[2019-01-13] MEDS ORDERED: PEPCID IVP STA (14:46)
[2019-01-13] MEDS ORDERED: ATIVAN IVP STA (15:09)
== END 2019-01-13 17:08 | disposition home or self-care (01) ==
LOC: ED 10:56
DX: F41.0 Panic disorder [episodic paroxysmal anxiety] (principal); K29.70 Gastritis, unspecified, without bleeding; F17.210 Nicotine dependence, cigarettes, uncomplicated
CPT/HCPCS: 36415; 80053; 80306; 81001; 82150; 83690; 85025; 96361; 96372; 96374; 96375; 99283

== ENCOUNTER 2019-02-07 | Emergency (ER) | END 2019-02-07 15:00 | disposition home or self-care (01) | CPT/HCPCS: 36415; 80048; 80053; 80306; 81001; 83605; 84145; 84703; 85025; 86677; 96365; 96366; 96372; 96375; 99283 ==